=== PATIENT | female | born 1950 | race Caucasian/White ===

== ENCOUNTER → 2017-11-05 08:21 | Outpatient (CLI) | payer MEDICARE, OTHER, SELFPAY ==
[2017-11-05 10:08] LABS: Rheumatoid Factor < 8.6 IU/mL (<12.0)
[2017-11-05 10:23] LABS: Free T3, Triiodothyronine Free 2.73 pg/mL (2.77-5.27); Free T4, Direct Thyroxine 0.42 ng/dL (0.78-2.19)
[2017-11-06 23:38] LABS: ANA Screen, IFA Negative (Negative)
[2017-11-07 18:42] LABS: Triiodothyronine T3 Total 80 ng/dL (76-181)
== END ==
PROVIDERS: PCP Physician Assistant; Visit Provider Internal Medicine Endocrinology, Diabetes & Metabolism
DX: L50.9 Urticaria, unspecified (principal); E06.3 Autoimmune thyroiditis; E03.9 Hypothyroidism, unspecified; Z85.72 Personal history of non-Hodgkin lymphomas
CPT/HCPCS: 36415; 82784; 84155; 84439; 84443; 84480; 84481; 86038; 86334; 86430

== ENCOUNTER → 2017-11-14 17:07 | Outpatient (CLI) | payer MEDICARE, OTHER, SELFPAY ==
[2017-11-14 18:11] LABS: Free T3, Triiodothyronine Free 3.46 pg/mL (2.77-5.27)
[2017-11-16 14:17] LABS: Thyroid Peroxidase Antibodies > 900 IU/mL (< 9)
[2017-11-16 16:27] LABS: Triiodothyronine T3 Total 84 ng/dL (76-181)
[2017-11-19 14:26] LABS: Triiodothyronine T3 Reverse 14 ng/dL (8-25)
== END ==
PROVIDERS: PCP Physician Assistant; Visit Provider Physician Assistant
DX: E03.9 Hypothyroidism, unspecified (principal)
CPT/HCPCS: 36415; 84480; 84481; 84482; 86376

== ENCOUNTER → 2017-11-27 11:28 | Outpatient (CLI) | payer MEDICARE, OTHER, SELFPAY ==
[2017-11-27 13:12] LABS: Free T3, Triiodothyronine Free 4.74 pg/mL (2.77-5.27)
[2017-11-27 13:13] LABS: T4 Total Thyroxine 9.01 ug/dL (5.5-11.0)
[2017-11-27 13:25] LABS: Thyroid Stimulating Hormone 0.34 uIU/mL (0.47-4.68)
[2017-11-28 15:31] LABS: Triiodothyronine T3 Total 129 ng/dL (76-181)
[2017-12-04 13:45] LABS: Triiodothyronine T3 Reverse 14
== END ==
PROVIDERS: PCP Physician Assistant; Visit Provider Physician Assistant
DX: E06.3 Autoimmune thyroiditis (principal); E03.9 Hypothyroidism, unspecified
CPT/HCPCS: 36415; 84436; 84443; 84480; 84481; 84482

== ENCOUNTER → 2017-12-20 13:20 | Outpatient (CLI) | payer MEDICARE, OTHER, SELFPAY ==
[2017-12-20 14:52] LABS: Free T3, Triiodothyronine Free 5.38 pg/mL (2.77-5.27); Free T4, Direct Thyroxine 1.37 ng/dL (0.78-2.19)
[2017-12-20 15:06] LABS: Thyroid Stimulating Hormone < 0.02 uIU/mL (0.47-4.68)
== END ==
PROVIDERS: PCP Physician Assistant; Visit Provider Internal Medicine Endocrinology, Diabetes & Metabolism
DX: E06.3 Autoimmune thyroiditis (principal)
CPT/HCPCS: 36415; 84439; 84443; 84481

== ENCOUNTER → 2017-12-27 08:42 | Outpatient (CLI) | payer MEDICARE, OTHER, SELFPAY ==
--- NOTE | 2017-12-27 08:43 | DI.US.S_ITS ---
PROCEDURE: US THYROID INDICATIONS: Hypothyroidism TECHNIQUE: Real-time scanning was performed of the thyroid gland, with image documentation. COMPARISON: [facility], CT, SOFT TISSUE NECK W CONTRAST, 03/22/2015, 10:20. [facility], CT, NECK/CHEST/ABD/PEL W CONTRAST, 08/03/2016, 8:07. FINDINGS: Right: Thyroid lobe measures 1.3 x 1.6 x 4.0 cm, and is heterogeneous in echotexture. Left: Thyroid lobe measures 1.1 x 1.2 x 3.6 cm, and is heterogeneous in echotexture. Isthmus: 2 mm thick. IMPRESSION: 1. No thyromegaly or measurable nodules. Thyroid echotexture is heterogeneous throughout with scattered microcystic changes. T1-RADS 2 ACR TI-RADS definitions and recommendations: TI-RADS 1 (benign): 0 points. FNA not needed. TI-RADS 2 (not suspicious): 2 points. FNA not needed. TI-RADS 3 (mildly suspicious): 3 points. * FNA if 2.5 cm or larger, follow up if 1.5 cm or larger (at 1, 3, and 5 years). TI-RADS 4 (moderately suspicious): 4-6 points. * FNA if 1.5 cm or larger, follow up if 1 cm or larger (at 1, 2, 3, and 5 years). TI-RADS 5 (highly suspicious): 7 points or more. * FNA if 1 cm or larger, follow up if 0.5 cm or larger (every year for 5 years). Dictated by: Kenan Quintero M.D. on 12/27/2017 at 10:29 Approved by: Kenan Quintero M.D. on 12/27/2017 at 10:32
== END ==
PROVIDERS: PCP Physician Assistant; Visit Provider Physician Assistant
DX: E03.9 Hypothyroidism, unspecified (principal); E04.9 Nontoxic goiter, unspecified; R79.89 Other specified abnormal findings of blood chemistry
CPT/HCPCS: 76536

== ENCOUNTER → 2018-01-21 10:40 | Outpatient (CLI) | payer MEDICARE, OTHER, SELFPAY ==
[2018-01-21 12:56] LABS: Free T3, Triiodothyronine Free 3.53 pg/mL (2.77-5.27); Free T4, Direct Thyroxine 1.38 ng/dL (0.78-2.19)
[2018-01-21 13:09] LABS: Thyroid Stimulating Hormone 0.44 uIU/mL (0.47-4.68)
[2018-01-23 16:12] LABS: Thyroid Peroxidase Antibodies > 900 IU/mL (< 9)
== END ==
PROVIDERS: PCP Physician Assistant; Visit Provider Physician Assistant
DX: E03.9 Hypothyroidism, unspecified (principal); R79.89 Other specified abnormal findings of blood chemistry; E06.3 Autoimmune thyroiditis
CPT/HCPCS: 36415; 84439; 84443; 84481; 86376

== ENCOUNTER → 2018-02-24 13:06 | Outpatient (CLI) | payer MEDICARE, OTHER, SELFPAY ==
--- NOTE | 2018-02-24 13:11 | DI.RAD.S_ITS ---
This blank DEXA report has been sent in error by the PACS system. The correct and complete report will be forthcoming in 1-2 days. Thank you for your patience and understanding. Dictated by: Roopa Jaimes MD, PhD on 02/24/2018 at 14:30 Approved by: Roopa Jaimes MD, PhD on 02/24/2018 at 14:31
--- NOTE | 2018-02-24 13:13 | DI.MG.S_ITS ---
BILATERAL DIGITAL SCREENING MAMMOGRAM 3D/2D WITH CAD: 02/24/2018 CLINICAL: Routine screening. Comparison is made to exams dated: 02/19/2017 mammogram, 12/19/2015 mammogram - [facility], and 12/16/2014 mammogram - [facility]. The tissue of both breasts is heterogeneously dense. This may lower the sensitivity of mammography. Current study was also evaluated with a Computer Aided Detection (CAD) system. There is possible architectural distortion in the right breast upper aspect middle depth, likely along the 12 o'clock position. Finding is best noted on tomographic CC slice 45 and MLO slice 47. No other significant masses, calcifications, or other findings are seen in either breast. IMPRESSION: INCOMPLETE: NEEDS ADDITIONAL IMAGING EVALUATION The possible architectural distortion in the right breast is indeterminate. Additional views with possible ultrasound are recommended. This exam was interpreted at Station ID: [id number]. NOTE: For mammograms, a report in lay terms will be sent to the patient. Approximately 15% of breast malignancies will not be visualized mammographically. In the management of a palpable breast mass, a negative mammogram must not discourage biopsy of a clinically suspicious lesion. Electronically Signed By: Manuel Friedman M.D. ecl/:02/27/2018 07:12:14 letter sent: Additional Imaging Needed ACR BI-RADS Category 0: Incomplete 3340F
== END ==
PROVIDERS: PCP Physician Assistant; Visit Provider Physician Assistant
DX: Z12.31 Encounter for screening mammogram for malignant neoplasm of breast (principal); M85.851 Other specified disorders of bone density and structure, right thigh; Z78.0 Asymptomatic menopausal state; E07.9 Disorder of thyroid, unspecified; Z82.62 Family history of osteoporosis
CPT/HCPCS: 77063; 77067; 77080

== ENCOUNTER → 2018-04-08 11:05 | Outpatient (CLI) | payer MEDICARE, SELFPAY | PROVIDERS: PCP Physician Assistant; Visit Provider Physician Assistant | DX: R30.0 Dysuria (principal) | CPT/HCPCS: 87077; 87086; 87186 ==

== ENCOUNTER → 2018-04-15 15:14 | Outpatient (CLI) | payer MEDICARE, SELFPAY ==
[2018-04-15 15:46] LABS: Influenza A and B by PCR Rapid Negative (Negative)
== END ==
PROVIDERS: PCP Physician Assistant; Visit Provider Physician Assistant
DX: R68.89 Other general symptoms and signs (principal)
CPT/HCPCS: 87400

== ENCOUNTER → 2018-05-07 14:46 | Outpatient (CLI) | payer MEDICARE, SELFPAY ==
[2018-05-07 15:20] LABS: Add Manual Diff / Slide Review NO; Basophils Percent Auto 1.3 % (0-2); Eosinophils Percent Auto 1.7 % (2-4); Hematocrit 34.9 % (36-46); Lymphocytes Percent Auto 19.8 % (25-40); Mean Corpuscular HGB Conc 34.3 % (30-36); Mean Corpuscular Hemoglobin 30.2 PG (26-34); Mean Corpuscular Volume 87.9 fL (80-100); Monocytes Percent Auto 7.8 % (3-14); Neutrophils Absolute Auto 4100 /uL (3000-5900); Neutrophils Percent Auto 69.4 % (50-75); Platelet Count 179 X10^3/uL (150-400); Red Blood Cell Count 3.97 X10^6/uL (4.0-5.2); White Blood Cell Count 5.9 X10^3/uL (4.5-11.0)
[2018-05-07 16:40] LABS: HEMOLYSIS < 15 (0-50); Iron 84 ug/dL (37-170)
[2018-05-07 16:45] LABS: Alanine Aminotransferase 36 IU/L (9-52); Albumin 3.9 g/dL (3.5-5.0); Albumin Globulin Ratio 1.6 (1.0-2.8); Alkaline Phosphatase 70 U/L (38-126); Aspartate Aminotransferase 23 IU/L (14-36); BUN Creatinine Ratio 21.1 (6-22); Bilirubin Total 0.8 mg/dL (0.2-1.3); Blood Urea Nitrogen 19 mg/dL (7-17); Calcium 9.4 mg/dL (8.4-10.2); Carbon Dioxide 28 mmol/L (22-32); Chloride 105 mmol/L (98-107); Estimated Glomerular Filt Rate > 60.0 mL/min (>60); Globulin 2.4 g/dL (1.7-4.1); Glucose 98 mg/dL (80-110); HEMOLYSIS < 15 (0-50); Potassium 3.9 mmol/L (3.4-5.1); Sodium 143 mmol/L (137-145); Total Protein 6.3 g/dL (6.3-8.2)
[2018-05-07 16:51] LABS: Percent Iron Saturation 31 % (15-50); Total Iron Binding Capacity 268 ug/dL (265-497); Transferrin 227 mg/dL (206-381)
[2018-05-07 17:12] LABS: Thyroid Stimulating Hormone < 0.02 uIU/mL (0.47-4.68)
[2018-05-09 14:57] LABS: Thyroid Peroxidase Antibodies > 900 IU/mL (< 9)
== END ==
PROVIDERS: PCP Physician Assistant; Visit Provider Physician Assistant
DX: E03.9 Hypothyroidism, unspecified (principal); R53.83 Other fatigue
CPT/HCPCS: 36415; 80053; 82728; 83540; 83550; 84443; 85025; 86376

== ENCOUNTER → 2018-07-02 13:26 | Outpatient (CLI) | payer MEDICARE, SELFPAY ==
[2018-07-02 14:48] LABS: Thyroid Stimulating Hormone < 0.02 uIU/mL (0.47-4.68)
== END ==
PROVIDERS: PCP Physician Assistant; Visit Provider Physician Assistant
DX: E03.8 Other specified hypothyroidism (principal); E06.3 Autoimmune thyroiditis
CPT/HCPCS: 36415; 84443

== ENCOUNTER → 2018-09-09 08:56 | Outpatient (CLI) | payer MEDICARE, OTHER, SELFPAY ==
[2018-09-09 10:55] LABS: Free T3, Triiodothyronine Free 2.75 pg/mL (2.77-5.27); Free T4, Direct Thyroxine 1.06 ng/dL (0.78-2.19)
[2018-09-09 11:09] LABS: Thyroid Stimulating Hormone 3.34 uIU/mL (0.47-4.68)
== END ==
PROVIDERS: PCP Physician Assistant; Visit Provider Physician Assistant
DX: E03.8 Other specified hypothyroidism (principal); E06.3 Autoimmune thyroiditis; R79.89 Other specified abnormal findings of blood chemistry
CPT/HCPCS: 36415; 84439; 84443; 84481

== ENCOUNTER → 2018-10-16 14:18 | Outpatient (CLI) | payer MEDICARE, OTHER, SELFPAY ==
[2018-10-16 15:32] LABS: Free T3, Triiodothyronine Free 3.49 pg/mL (2.77-5.27); Free T4, Direct Thyroxine 1.46 ng/dL (0.78-2.19)
[2018-10-16 15:46] LABS: Thyroid Stimulating Hormone 0.57 uIU/mL (0.47-4.68)
== END ==
PROVIDERS: PCP Physician Assistant; Visit Provider Physician Assistant
DX: E03.8 Other specified hypothyroidism (principal); E06.3 Autoimmune thyroiditis
CPT/HCPCS: 36415; 84439; 84443; 84481

== ENCOUNTER → 2018-12-22 11:57 | Outpatient (CLI) | payer MEDICARE, OTHER, SELFPAY ==
[2018-12-22 13:29] LABS: Cholesterol 280 mg/dL (140-199); HDL Cholesterol 66 mg/dL (40-60); LDL Cholesterol Calculated 184 mg/dL (<100); Triglycerides 152 mg/dL (35-150)
[2018-12-22 13:45] LABS: Free T3, Triiodothyronine Free 3.32 pg/mL (2.77-5.27); Free T4, Direct Thyroxine 1.09 ng/dL (0.78-2.19)
== END ==
PROVIDERS: PCP Physician Assistant; Visit Provider Physician Assistant
DX: E03.8 Other specified hypothyroidism (principal); E06.3 Autoimmune thyroiditis; E78.5 Hyperlipidemia, unspecified; I10 Essential (primary) hypertension
CPT/HCPCS: 36415; 80061; 84439; 84443; 84481

== ENCOUNTER → 2019-02-13 11:31 | Outpatient (CLI) | payer MEDICARE, OTHER, SELFPAY ==
[2019-02-13 12:33] LABS: Cholesterol 187 mg/dL (140-199); HDL Cholesterol 61 mg/dL (40-60); LDL Cholesterol Calculated 101 mg/dL (<100); Triglycerides 124 mg/dL (35-150)
== END ==
PROVIDERS: PCP Physician Assistant; Visit Provider Physician Assistant
DX: E78.2 Mixed hyperlipidemia (principal)
CPT/HCPCS: 36415; 80061

== ENCOUNTER 2019-04-04 17:22 | Emergency (ER) | payer MEDICARE, OTHER, SELFPAY ==
--- NOTE | 2019-04-04 17:29 | DI.RAD.S_ITS ---
PROCEDURE: XR FINGER LT MIN 2V INDICATIONS: injury while gardening TECHNIQUE: AP hand, 2 views of the fourth finger(s) acquired. COMPARISON: [facility] [place], CR, WRIST COMP MIN 3VW (LT), 10/26/2013, 10:57. [facility], CR, HAND AND WRIST 3V LEFT, 06/25/2015, 14:26. FINDINGS: Bones: There is a mildly displaced fracture at the base of the fourth distal phalanx extending into the joint space. Post surgical changes reflecting previous radial ORIF are noted. Old ulnar styloid fracture is noted. Soft tissues: No suspicious soft tissue calcifications. IMPRESSION: Mildly displaced intra-articular fourth distal phalanx fracture. Dictated by: Valarie Mayer M.D. on 04/04/2019 at 17:56 Approved by: Valarie Mayer M.D. on 04/04/2019 at 17:59
--- NOTE | 2019-04-04 17:30 | PC.NURSE ---
thinks she sprained Left middle finger while gardening. mild swelling and pain. 2+ radial pulse. XR ordered. cold pack from home applied
[2019-04-04 17:31] VITALS: BP 154/81; PULSE 69; RESP 16; TEMP 36.8; O2SAT 99; BMI 32.1
--- NOTE | 2019-04-04 17:41 | ED.UPPEXIN ---
HPI - Extremity Injury (Upper) <MANE Yee - Last Filed: 04/04/19 19:16> General Chief Complaint: Extremity Injury, Upper Stated Complaint: left hand ring finger injury Time Seen by Provider: 04/04/19 17:24 Source: patient Mode of arrival: Family Vehicle Limitations: no limitations History of Present Illness HPI narrative: 68-year-old female presents to the emergency department complaining of left 4th finger pain after falling out of her chair. She states she went to lean over in her chair was on a sloping driveway and she fell to the left. She denies elbow pain, wrist pain, or hitting her head. She denies taking any blood thinners. She denies back pain, neck pain, knee pain, hip pain, other trauma, nausea, vomiting, diarrhea, LOC, or other concerns. MD complaint: injury to: left Related Data Home Medications Medication Instructions Recorded Confirmed Scanned list of supplements PO 12/26/17 02/02/19 turmeric root extract 500 mg 500 mg PO DAILY 05/07/18 02/02/19 capsule guanfacine 1 mg tablet 1 mg PO .every other day tab 01/26/19 02/02/19 Previous Rx's Medication Instructions Recorded pneumoc 13-mouna conj-dip cr(PF) 0.5 0.5 ml IM ONCE #0.5 ml 09/16/18 mL IM syringe esomeprazole magnesium 20 mg 20 mg PO DAILY #90 tab 01/08/19 tablet,delayed release buspirone 5 mg tablet See Rx Instructions PO BEDTIME #60 01/26/19 tab levothyroxine 88 mcg tablet 88 mcg PO DAILY #90 tab 02/02/19 atorvastatin 20 mg tablet 20 mg PO BEDTIME #90 tab 02/16/19 telmisartan 40 mg-amlodipine 5 mg 1 tab PO DAILY #90 tab 02/16/19 tablet lorazepam 1 mg tablet See Rx Instructions PO BEDTIME PRN 03/30/19 #10 tab Allergies Allergy/AdvReac Type Severity Reaction Status Date / Time adhesive Allergy Mild Redness Verified 04/04/19 17:37 and itching tape/tegaderm Allergy Intermediate rash Uncoded 04/04/19 17:37 Review of Systems <MANE Yee - Last Filed: 04/04/19 19:16> Review of Systems Narrative: REVIEW OF SYSTEMS: GENERAL: Denies fever or chills. HENT: No head trauma. EYES: No double vision or vision loss. CARDIOVASCULAR: No chest pain or syncope. RESPIRATORY: No shortness of breath or cough. GASTROINTESTINAL: No nausea, vomiting, diarrhea, or constipation. GENITOURINARY: No flank pain or dysuria. MUSCULOSKELETAL: Complains of left 4th finger pain, see HPI. INTEGUMENTARY: No rash, lesions, or pruritus. NEURO: No numbness, tingling. PSYCH: No behavior or mood changes. Patient History <MANE Yee - Last Filed: 04/04/19 19:16> Medical History Hypothyroidism (Chronic Unknown) Non Hodgkin's lymphoma (Inactive) Osteoarthritis (Chronic Unknown) Surgical History H/O lateral meniscus repair of right knee (Resolved) History of tonsillectomy and adenoidectomy (Resolved) Hx of tubal ligation (Resolved) Social History Smoking Status: Never smoker second hand exposure: No alcohol intake: never substance use type: does not use alcohol intake frequency: 0-2 drinks per day Substance Use Type: does not use Exam <MANE Yee - Last Filed: 04/04/19 19:16> Narrative Exam Narrative: PHYSICAL EXAMINATION: GENERAL: Well groomed, alert, and cooperative. Answers questions promptly and appropriately. Vital signs noted. HENT: Normocephalic, atraumatic. EYES: Symmetrical, sclera white, no periorbital swelling. CARDIOVASCULAR: S1 and S2 sounds normal. Regular rate and rhythm, no murmurs, clicks, or bruits. No pedal edema. RESPIRATORY: Normal respiratory rate, trachea midline, airway patent. No stridor, nasal flaring or accessory muscle use. Lungs are clear in all tobias. MUSCULOSKELETAL: Swelling and tenderness to left 4th finger between the dip and MIP joint, full range of motion MIP joint, decreased dip ROM due to pain. No tenderness with palpation to hand, wrist, elbow, shoulder, or cervical spine. Normal gait and coordination. Equal tone and mass bilaterally. EXTREMITIES: CMS intact. No pedal edema. SKIN: Warm, dry, soft, appropriate color for ethnicity. No lesions, rashes, or wounds. NEURO: Alert and Oriented X 3. No sensory deficits. PSYCH: Appropriate affect and mood. Initial Vital Signs Initial Vital Signs: Vital Signs Temperature 98.3 F 04/04/19 17:31 Pulse Rate 69 04/04/19 17:31 Respiratory Rate 16 04/04/19 17:31 Blood Pressure 154/81 H 04/04/19 17:31 Pulse Oximetry 99 04/04/19 17:31 <Antonio Stovall DO - Last Filed: 04/04/19 19:36> Initial Vital Signs Initial Vital Signs: Vital Signs Temperature 98.3 F 04/04/19 17:31 Pulse Rate 69 04/04/19 17:31 Respiratory Rate 16 04/04/19 17:31 Blood Pressure 154/81 H 04/04/19 17:31 Pulse Oximetry 99 04/04/19 17:31 Procedures <MANE Yee - Last Filed: 04/04/19 19:16> Orthopedic Splinting/Casting Injury #1: Side: left Upper Extremity Injury Location: finger Upper Extremity Immobilizer: aluminum form splint Post splinting neuro exam: intact Post splinting vascular exam: intact Placed by: Nursing Course <MANE Yee - Last Filed: 04/04/19 19:16> Orders Ordered: ED Orders 04/04/19 17:29 XR finger LT min 2V Stat Consultations Consultation #1: Patient staffed with Dr. Stovall. Vital Signs Vital signs: Vital Signs - 8 hr 04/04/19 17:31 Temperature 98.3 F Pulse Rate 69 Respiratory Rate 16 Blood Pressure 154/81 H Pulse Oximetry 99 <Antonio Stovall DO - Last Filed: 04/04/19 19:36> Orders Ordered: ED Orders 04/04/19 17:29 XR finger LT min 2V Stat Vital Signs Vital signs: Vital Signs - 8 hr 04/04/19 17:31 Temperature 98.3 F Pulse Rate 69 Respiratory Rate 16 Blood Pressure 154/81 H Pulse Oximetry 99 MDM - Extremity Injury (Upper) <MANE Yee - Last Filed: 04/04/19 19:16> Medical Records Attestation: I reviewed the patient's medical records. Lab Data Attestation: I reviewed the patient's lab results. Imaging Data Finger Xray: Radiologist's impression: [address] [address] XRay Report Signed Patient: Keisha Mclean HMR#: [id number] : 9Acct:[id number] Age/Sex: 68 / FDate of Service: 04/04/19 Loc: ED Accession Number: [id number] Procedure: XR finger LT min 2V Ordering Provider: Chuyita Kaplan PROCEDURE: XR FINGER LT MIN 2V INDICATIONS: injury while gardening TECHNIQUE: AP hand, 2 views of the fourth finger(s) acquired. COMPARISON: [facility] [place], CR, WRIST COMP MIN 3VW (LT), 10/26/2013, 10:57. [facility], CR, HAND AND WRIST 3V LEFT, 06/25/2015, 14:26. FINDINGS: Bones: There is a mildly displaced fracture at the base of the fourth distal phalanx extending into the joint space. Post surgical changes reflecting previous radial ORIF are noted. Old ulnar styloid fracture is noted. Soft tissues: No suspicious soft tissue calcifications. IMPRESSION: Mildly displaced intra-articular fourth distal phalanx fracture. Dictated by: Valarie Mayer M.D. on 04/04/2019 at 17:56 Approved by: Valarie Mayer M.D. on 04/04/2019 at 17:59 MDM Narrative Medical decision making narrative: History, examination, and x-ray consistent with inner articular distal phalangeal fracture. Patient was splinted. Reduction not indicated as due to fracture, break will not remain reduced. Patient was referred to Orthopedic for further follow-up. Less suspicion of any other injuries due to lack of pain or reports of trauma. Strict return precautions given and follow-up instructions discussed. Discharge Plan Departure Patient Disposition: Home Clinical Impression: Distal phalanx or phalanges, closed fracture Qualifiers: Encounter type: initial encounter Finger: ring finger Fracture alignment: displaced Laterality: left Qualified Code(s): S62.635A - Displaced fracture of distal phalanx of left ring finger, initial encounter for closed fracture Discharge Date/Time: 04/04/19 18:27 Instructions: DI for Finger Fracture Activity Restrictions/Additional Instructions: Thank you for entrusting me with your care today. As discussed, there is a fracture to her left finger. We have placed your finger in a splint, please leave this on as much as possible. Please follow up with an orthopedic in the next week for re-evaluation and continued treatment. Return emergency department if you develop worsening symptoms such as dizziness, syncope, chest pain, shortness of breath, or other concerns. Prescriptions: No Action turmeric root extract 500 mg capsule 500 mg PO DAILY RF: 0 Prevnar 13 (PF) 0.5 mL syringe 0.5 ml IM ONCE Qty: 0.5 RF: 0 Scanned list of supplements PO RF: 0 esomeprazole magnesium 20 mg tablet,delayed release (DR/EC) 20 mg PO DAILY Qty: 90 RF: 1 atorvastatin 20 mg tablet 20 mg PO BEDTIME Qty: 90 RF: 3 telmisartan-amlodipine 40-5 mg tablet 1 tab PO DAILY Qty: 90 RF: 1 lorazepam 1 mg tablet See Rx Instructions PO BEDTIME PRN (Reason: anxiety) Qty: 10 RF: 0 guanfacine 1 mg tablet 1 mg PO .every other day RF: 0 buspirone 5 mg tablet See Rx Instructions PO BEDTIME Qty: 60 RF: 3 levothyroxine 88 mcg tablet 88 mcg PO DAILY Qty: 90 RF: 3 Referrals: Juli Umanzor PA-C [Primary Care Provider] - Geraldine Roach PA-C [[facility]] - (Mildly displaced intra-articular distal phalangeal fracture to left 4th finger.)
== END 2019-04-04 18:27 | disposition home or self-care (01) ==
PROVIDERS: Emergency Provider Nurse Practitioner; PCP Physician Assistant
DX: S62.635A Displaced fracture of distal phalanx of left ring finger, initial encounter for closed fracture (principal)
CPT/HCPCS: 29130; 73140; 99283

== ENCOUNTER → 2019-05-11 08:18 | Outpatient (CLI) | payer MEDICARE, OTHER, SELFPAY ==
--- NOTE | 2019-05-11 09:25 | PM.TREADMILL ---
Cardiac Stress Test Report Referral & Results Date Patient Seen: 05/11/19 Requesting provider: Zeyad Linton Indication: Hypertension Rest ECG: Unremarkable Procedure Note: Today following both written and verbal informed consent, the patient was exercised according to a standard [place] protocol. The patient exercised for a total of 9 minutes 13 seconds achieving a maximum heart rate of 140. Patient's maximum systolic blood pressure was 168. This was an estimated 10.1 MET's. There are no ST-T segment changes Normal heart rate and blood pressure response to exercise Function aerobic impairment well well off the scale however estimate her exercise capacity to be equal that of an active 36-year-old Impression: No evidence of ischemia Amazing exercise capacity Please note: Actual ECG tracings can be found in the PACS system.
== END ==
PROVIDERS: PCP Physician Assistant; Visit Provider Internal Medicine Cardiovascular Disease
DX: R07.89 Other chest pain (principal); I10 Essential (primary) hypertension
CPT/HCPCS: 93016; 93017; 93018

== ENCOUNTER → 2019-05-27 14:10 | Outpatient (CLI) | payer MEDICARE, OTHER, SELFPAY ==
--- NOTE | 2019-05-27 14:11 | DI.US.S_ITS ---
PROCEDURE: US ABDOMEN COMPLETE INDICATIONS: LARGE CYST ON LIVER FOUND DURING ECHOCARDIOGRAM TECHNIQUE: Real-time scanning was performed of the abdominal and retroperitoneal organs, with image documentation. COMPARISON: [facility], CT, NECK/CHEST/ABD/PEL W CONTRAST, 08/03/2016, 8:07. FINDINGS: Liver: Liver is normal in size. There is a 6.7 x 8.3 x 8.1 cm slightly complex cyst with internal septation in the central liver between the left and right hepatic lobe. Gallbladder: There are gallstones. A non-mobile stone is noted in the gallbladder neck. Gallbladder wall measures 3 mm. No pericholecystic fluid collection or sonographic Chambers sign. Biliary ducts: Intrahepatic bile ducts are non-dilated. Extrahepatic bile duct caliber measures 6 mm. Normal is 6-7 mm or less in diameter, or 10 mm or less post-cholecystectomy. Pancreas: Visualized portions of the pancreas are sonographically normal. Spleen: Spleen is normal in size and homogeneous in echotexture. Kidneys: Kidneys are normal in size and echotexture. Right kidney measures 10.8 cm long; left kidney measures 10.4 cm long. No hydronephrosis or nephrolithiasis. No solid masses. Aorta: Visualized aorta is normal in caliber at less than 3 cm. Iliacs: Proximal common iliac arteries are normal in caliber at less than 2.5 cm. IVC: Intrahepatic inferior vena cava is patent. Miscellaneous: No free abdominal fluid. IMPRESSION: 1. A large slightly complex cyst in liver. 2. Cholelithiasis. No definitive ultrasound findings to suggest acute cholecystitis. Dictated by: Yoel Vasquez M.D. on 05/28/2019 at 8:59 Approved by: Yoel Vasquez M.D. on 05/28/2019 at 9:03
== END ==
PROVIDERS: PCP Physician Assistant; Visit Provider Physician Assistant
DX: K76.89 Other specified diseases of liver (principal); K80.20 Calculus of gallbladder without cholecystitis without obstruction
CPT/HCPCS: 76700

== ENCOUNTER → 2019-06-16 08:52 | Outpatient (CLI) | payer MEDICARE, OTHER, SELFPAY ==
[2019-06-16 09:45] LABS: Alanine Aminotransferase 22 IU/L (<35); Albumin 4.4 g/dL (3.5-5.0); Albumin Globulin Ratio 1.6 (1.0-2.8); Alkaline Phosphatase 83 U/L (38-126); Aspartate Aminotransferase 23 IU/L (14-36); BUN Creatinine Ratio 18.8 (6-22); Blood Urea Nitrogen 15 mg/dL (7-17); Calcium 9.4 mg/dL (8.4-10.2); Carbon Dioxide 27 mmol/L (22-32); Chloride 104 mmol/L (98-107); Estimated Glomerular Filt Rate > 60.0 mL/min (>60); Globulin 2.8 g/dL (1.7-4.1); Glucose 125 mg/dL (80-110); HEMOLYSIS < 15 (0-50); Potassium 3.9 mmol/L (3.4-5.1); Sodium 141 mmol/L (137-145); Total Protein 7.2 g/dL (6.3-8.2)
--- NOTE | 2019-06-16 10:28 | DI.CT.S_ITS ---
PROCEDURE: CT ABDOMEN WO/W CON INDICATIONS: COMPLEX LIVER CYST ON US TECHNIQUE: 4 phase scanning was performed. Non-contrast 5 mm axial sections acquired from the diaphragm to the iliac crests. Following the administration of intravenous contrast, 5 mm thick arterial-phase, portal venous-phase, and 5-minute delayed phase images were acquired through the liver. 5 mm thick coronal and sagittal reformats were performed. For radiation dose reduction, the following was used: automated exposure control, adjustment of mA and/or kV according to patient size. COMPARISON: Outside Facility, [place], CT ABDOMEN/PELVIS W/WO CONTRAST, 10/16/2014, 9:02. [facility], US, US ABDOMEN COMPLETE, 05/27/2019, 14:23. [facility], CT, NECK/CHEST/ABD/PEL W CONTRAST, 08/03/2016, 8:07. FINDINGS: Image quality: Excellent. Lung bases: Lung bases are clear. Heart size is normal. Liver: Within the central liver, there is a simple appearing water density cyst seen that measures up to 7.7 cm. In 2017, this cyst measured up to 6.4 cm transversely. No additional focal liver lesions are seen. The liver demonstrates normal size. Other solid organs: Gallbladder demonstrates gallstones within its lumen, as on series 2 image 26. Biliary system is non dilated. Pancreas is normal in morphology. There is a stable 8mm cystic focus again seen within the uncinate process pancreas, which is stable compared to priors. Spleen is normal in size and enhancement. Incidental note is made of an accessory spleen along the anterior aspect of the primary spleen. No adrenal nodules. Both kidneys demonstrate normal size and enhancement, without hydronephrosis or nephrolithiasis. Nodes and vessels: No retroperitoneal or mesenteric adenopathy by size criteria. Aorta and inferior vena cava are normal in size. Bowel and peritoneum: Unenhanced bowel loops are normal in caliber. No free fluid or air. Bones: No suspicious bony lesions. No vertebral body compression fractures. Age-appropriate bony degenerative changes are seen. Miscellaneous: No ventral hernias. IMPRESSION: Simple appearing liver cyst, without suspicious features. This cyst has grown slightly since 2017. Incidental note is made of: Gallstones Accessory spleen Stable 8mm cystic focus within the uncinate process of the pancreas. Dictated by: Delfin Rubio M.D. on 06/16/2019 at 9:57 Approved by: Delfin Rubio M.D. on 06/16/2019 at 10:25
== END ==
PROVIDERS: PCP Physician Assistant; Visit Provider Nurse Practitioner Family
DX: Z01.812 Encounter for preprocedural laboratory examination (principal); K76.89 Other specified diseases of liver; K80.20 Calculus of gallbladder without cholecystitis without obstruction; K86.2 Cyst of pancreas; Q89.09 Congenital malformations of spleen
CPT/HCPCS: 36415; 74170; 80053; 86682; Q9967

== ENCOUNTER 2019-06-20 09:37 | Emergency (ER) | payer MEDICARE, OTHER, SELFPAY ==
--- NOTE | 2019-06-20 09:38 | ED.WOUNDLAC ---
HPI - Wound/Laceration General Chief Complaint: Skin/Abscess/Foreign Body Stated Complaint: right breast incision bleeding uncontrolably Time Seen by Provider: 06/20/19 09:38 Source: patient and family Mode of arrival: Ambulatory Limitations: no limitations History of Present Illness HPI narrative: 68-year-old female nonsmoker with noncontributory medical history presents with her daughter and a chief complaint of bleeding from an incision on her right breast. She had elective bilateral breast surgery to in [place] 1 month ago and had been doing quite well. Over the past few days she put some anti scarring bandages on the incisions of her right breast and when taking 1 off this morning she had a fairly large amount of dark blood come from a small area in the incision. She denies any pain or fever or chills. The bleeding stops when she lays flat and begins again when she stands. Is very dark in color and at no point is it red Onset (ago): hour(s) Location: chest Place: home Patient tetanus UTD: Yes Associated symptoms: none Related Data Home Medications Medication Instructions Recorded Confirmed Scanned list of supplements PO 12/26/17 02/02/19 turmeric root extract 500 mg 500 mg PO DAILY 05/07/18 02/02/19 capsule guanfacine 1 mg tablet 1 mg PO .every other day tab 01/26/19 02/02/19 Previous Rx's Medication Instructions Recorded pneumoc 13-mouna conj-dip cr(PF) 0.5 0.5 ml IM ONCE #0.5 ml 09/16/18 mL IM syringe esomeprazole magnesium 20 mg 20 mg PO DAILY #90 tab 01/08/19 tablet,delayed release buspirone 5 mg tablet See Rx Instructions PO BEDTIME #60 01/26/19 tab levothyroxine 88 mcg tablet 88 mcg PO DAILY #90 tab 02/02/19 atorvastatin 20 mg tablet 20 mg PO BEDTIME #90 tab 02/16/19 telmisartan 40 mg-amlodipine 5 mg 1 tab PO DAILY #90 tab 02/16/19 tablet lorazepam 1 mg tablet See Rx Instructions PO BEDTIME PRN 03/30/19 #10 tab cephalexin [Keflex] 500 mg PO QID 7 Days #28 cap 06/20/19 Allergies Allergy/AdvReac Type Severity Reaction Status Date / Time adhesive Allergy Mild Redness Verified 04/04/19 17:37 and itching tape/tegaderm Allergy Intermediate rash Uncoded 04/04/19 17:37 Review of Systems Constitutional Constitutional: Denies chills, Denies fatigue, Denies fever(s), Denies frequent falls, Denies lethargy and Denies weakness Eyes Eyes: Denies change in vision, Denies eye discharge, Denies irritation and Denies loss of vision ENT Ears, Nose, Mouth, and Throat: Denies change in voice, Denies dizziness, Denies neck pain, Denies sore throat and Denies throat swelling Cardiovascular Cardiovascular: Denies chest pain, Denies irregular heart rhythm, Denies lightheadedness, Denies palpitations, Denies dyspnea, Denies dyspnea on exertion and Denies orthopnea Respiratory Respiratory: Denies cough, Denies dyspnea, Denies dyspnea on exertion and Denies wheezing Gastrointestinal Gastrointestinal: Denies abdominal pain, Denies change in bowel habits, Denies diarrhea, Denies nausea and Denies vomiting Genitourinary Genitourinary: Denies hematuria, Denies flank pain, Denies urinary incontinence and Denies urinary urgency Musculoskeletal Musculoskeletal: Denies back pain, Denies muscle weakness, Denies neck pain, Denies numbness and Denies tingling Integumentary/Breasts Skin/Breast: Denies pruritus, Denies erythema, Denies rash and Reports wounds Neurologic Neurologic: Denies behavioral changes, Denies confusion, Denies dizziness, Denies frequent falls, Denies loss of vision, Denies numbness, Denies tingling and Denies weakness Psychiatric Psychiatric: Denies anxiety, Denies behavioral changes, Denies confusion, Denies depression, Denies homicidal ideation and Denies suicidal ideation Endocrine Endocrine: Denies fatigue, Denies flushing and Denies palpitations Hematologic/Lymphatic Hematologic/Lymphatic: Denies easy bruising Allergic/Immunologic Allergic/Immunologic: Denies urticaria, Denies throat swelling and Denies wheezing Patient History Medical History Hypothyroidism (Chronic Unknown) Non Hodgkin's lymphoma (Inactive) Osteoarthritis (Chronic Unknown) Surgical History H/O lateral meniscus repair of right knee (Resolved) History of tonsillectomy and adenoidectomy (Resolved) Hx of tubal ligation (Resolved) Social History Smoking Status: Never smoker second hand exposure: No alcohol intake: never substance use type: does not use Smoking Status: Never smoker alcohol intake frequency: 0-2 drinks per day Substance Use Type: does not use Exam Narrative Exam Narrative: GEN: AOx3 and in mild distress EYES: Pupils are equal, round, and reactive to light and accommodation. Extraoccular muscles are intact bilaterally. There is no subconjunctival hemorrhage or exudate. CHEST: Lungs are clear to auscultation bilaterally and free of wheezes, rales, or rhonchi. Heart rate is regular rhythm, there are no murmurs, clicks, rubs, or gallops. There is no chest wall tenderness. Right breast exposed with female nursing veterinarian epidemiologist at the bedside and patient's permission. There's a very small area of wound dehiscence oozing dark blood noted. When patient sits up or stands the bleeding increases,suggesting a gravity component. Nothing pulsatile. There is no erythema, warmth or induration on the breast. ABD: Abdomen is soft and nontender. There is no guarding or rebound. Bowel sounds are normal in all 4 quadrants. There is no mass or organomegaly. EXT: Full painless ROM of all extremities with no loss of sensation or strength. SKIN: Warm, pink, and dry. No erythema or rash of exposed areas Initial Vital Signs Initial Vital Signs: Vital Signs Temperature 97.1 F L 06/20/19 09:43 Pulse Rate 69 06/20/19 09:43 Respiratory Rate 18 06/20/19 09:43 Blood Pressure 182/83 H 06/20/19 09:43 Pulse Oximetry 99 06/20/19 09:43 Course Course Course Narrative: Call to on-call provider at plastic surgery office in [place]. After discussing the case we sure the opinion this is likely a hematoma which has been present for quite some time is draining. He requests that I do not close the dehiscence and allowed to drain. Furthermore, he recommends placing the patient on antibiotics and encouraged close follow-up Patient understands and is in agreement with the plan. Vital Signs Vital signs: Vital Signs - 8 hr 06/20/19 09:43 Temperature 97.1 F L Pulse Rate 69 Respiratory Rate 18 Blood Pressure 182/83 H Pulse Oximetry 99 Discharge Plan Departure Patient Disposition: Home Clinical Impression: Postoperative bleeding from incision Discharge Date/Time: 06/20/19 10:30 Instructions: DI for Post-Surgical Bleeding Activity Restrictions/Additional Instructions: 1. Post surgical bleeding - likely from old blood which is now draining. Change dressings when they become bloody 2. I've sent an antibiotic to [facility] at your request 3. Follow up with Dr. Jonas on Saturday morning, call for an appointment and let them know you were seen here. 4. Return for worsening or persistent symptoms Prescriptions: New cephalexin [Keflex] 500 mg capsule 500 mg PO QID 7 Days Qty: 28 RF: 0 No Action turmeric root extract 500 mg capsule 500 mg PO DAILY RF: 0 Prevnar 13 (PF) 0.5 mL syringe 0.5 ml IM ONCE Qty: 0.5 RF: 0 Scanned list of supplements PO RF: 0 esomeprazole magnesium 20 mg tablet,delayed release (DR/EC) 20 mg PO DAILY Qty: 90 RF: 1 atorvastatin 20 mg tablet 20 mg PO BEDTIME Qty: 90 RF: 3 telmisartan-amlodipine 40-5 mg tablet 1 tab PO DAILY Qty: 90 RF: 1 lorazepam 1 mg tablet See Rx Instructions PO BEDTIME PRN (Reason: anxiety) Qty: 10 RF: 0 guanfacine 1 mg tablet 1 mg PO .every other day RF: 0 buspirone 5 mg tablet See Rx Instructions PO BEDTIME Qty: 60 RF: 3 levothyroxine 88 mcg tablet 88 mcg PO DAILY Qty: 90 RF: 3 Referrals: Juli Umanzor PA-C [Primary Care Provider] -
[2019-06-20 09:43] VITALS: BP 182/83; PULSE 69; RESP 18; TEMP 36.2; O2SAT 99; BMI 32.4
--- NOTE | 2019-06-20 10:28 | PC.NURSE ---
dressing placed under r breast/ bleeding site. extra dressings given
== END 2019-06-20 10:30 | disposition home or self-care (01) ==
PROVIDERS: Emergency Provider Emergency Medicine; PCP Physician Assistant
DX: Z98.890 Other specified postprocedural states (principal); L76.22 Postprocedural hemorrhage of skin and subcutaneous tissue following other procedure
CPT/HCPCS: 99281; 99283

== ENCOUNTER → 2019-07-28 15:01 | Outpatient (CLI) | payer MEDICARE, OTHER, SELFPAY ==
[2019-07-28 16:58] LABS: Free T4, Direct Thyroxine 0.94 ng/dL (0.78-2.19)
[2019-07-28 17:11] LABS: Thyroid Stimulating Hormone 2.53 uIU/mL (0.47-4.68)
== END ==
PROVIDERS: PCP Family Medicine; Referring Provider Family Medicine; Visit Provider Family Medicine
DX: E03.8 Other specified hypothyroidism (principal); E06.3 Autoimmune thyroiditis; E08.8 Diabetes mellitus due to underlying condition with unspecified complications
CPT/HCPCS: 36415; 84439; 84443; 84481

== ENCOUNTER → 2019-08-25 10:10 | Outpatient (CLI) | payer MEDICARE, OTHER, SELFPAY ==
[2019-08-25 10:45] LABS: Add Manual Diff / Slide Review NO; Basophils Absolute Auto 0 /uL (0-100); Basophils Percent Auto 0.4 % (0-2); Eosinophils Absolute Auto 100 /uL (0-450); Hematocrit 40.7 % (36-46); Hemoglobin 13.7 g/dL (12.0-16.0); Lymphocytes Absolute Auto 900 /uL (1100-4500); Lymphocytes Percent Auto 19.8 % (25-40); Mean Corpuscular HGB Conc 33.7 % (30-36); Mean Corpuscular Hemoglobin 29.9 PG (26-34); Mean Corpuscular Volume 88.9 fL (80-100); Monocytes Absolute Auto 400 /uL (0-900); Neutrophils Absolute Auto 3200 /uL (1500-7000); Neutrophils Percent Auto 67.8 % (50-75); Platelet Count 193 X10^3/uL (150-400); Red Blood Cell Count 4.58 X10^6/uL (4.0-5.2); Red Cell Distribution Width 13.6 % (11.6-14.8); White Blood Cell Count 4.7 X10^3/uL (4.5-11.0)
[2019-08-25 11:21] LABS: Alanine Aminotransferase 26 IU/L (<35); Albumin 4.5 g/dL (3.5-5.0); Albumin Globulin Ratio 1.5 (1.0-2.8); Alkaline Phosphatase 84 U/L (38-126); Aspartate Aminotransferase 26 IU/L (14-36); BUN Creatinine Ratio 19.7 (6-22); Bilirubin Total 1.1 mg/dL (0.2-1.3); Blood Urea Nitrogen 15 mg/dL (7-17); Calcium 9.8 mg/dL (8.4-10.2); Carbon Dioxide 28 mmol/L (22-32); Chloride 104 mmol/L (98-107); Estimated Glomerular Filt Rate > 60.0 mL/min (>60); Globulin 3.1 g/dL (1.7-4.1); Glucose 118 mg/dL (80-110); HEMOLYSIS < 15 (0-50); Sodium 139 mmol/L (137-145); Total Protein 7.6 g/dL (6.3-8.2)
[2019-08-25 12:34] LABS: Hemoglobin A1C% w Est Avg Glu 5.7 % (4.0-6.0)
[2019-08-25 12:54] LABS: Free T4, Direct Thyroxine 1.63 ng/dL (0.78-2.19)
[2019-08-25 13:08] LABS: Thyroid Stimulating Hormone 0.65 uIU/mL (0.47-4.68)
--- NOTE | 2019-08-31 13:45 | ONC.MSW ---
Description: New Referral Navigation Activity: Reviewed new referral for acuity, medical status and immediate needs. Forwarded to scheduling for next available f/u.
== END ==
PROVIDERS: PCP Family Medicine; Referring Provider Family Medicine; Visit Provider Family Medicine
DX: E03.8 Other specified hypothyroidism (principal); E06.3 Autoimmune thyroiditis; Z85.79 Personal history of other malignant neoplasms of lymphoid, hematopoietic and related tissues; R73.09 Other abnormal glucose
CPT/HCPCS: 36415; 80053; 83036; 84439; 84443; 85025

== ENCOUNTER → 2019-09-02 15:09 | Oncology outpatient (ONC) | payer MEDICARE, OTHER, SELFPAY ==
--- NOTE | 2019-09-02 13:00 | ONC.CONS ---
History of Present Illness - Data of Consult Primary Care Provider: Loki Martinez, DO - Consult Narrative Narrative: Keisha Mclean is a 69 year old female referred for evaluation and management of marginal zone (non-Hodgkin's) lymphoma. Marginal zone lymphoma was originally diagnosed in December 2011, confirmed from biopsy of bulky right cervical lymphadenopathy and salivary gland swelling. She had had symptoms for about 1 year prior to diagnosis. Initial treatment included weekly Rituxan x4, but she relapsed about 8 months later, treated with 4 additional cycles of Rituxan. Additional recurrence marginal zone lymphoma with extensive right-sided cervical lymphadenopathy was detected on PET scan, performed at [facility], in October 2014. She had a confluent kenya mass affecting right sided levels II through IV. She was treated with bendamustine plus Rituxan for 6 cycles. Maintenance Rituxan was considered, but after 2nd opinion at [facility], she was advised that this was not indicated, so she has been on surveillance. She has had increased discomfort in her left upper quadrant, and generalized arthralgias. With her history of multiple recurrences of marginal zone lymphoma, she is quite concerned that current symptoms could indicate additional disease. She is also being monitored for a 4 x 6 cm simple cyst of the liver. She also notes thyroid disease (Selene's thyroiditis). Laboratory studies on 08/25/2019 showed a total white cell count of 4.7, 68% neutrophils, 20% lymphocytes, 9% monocytes, and 3% eosinophils, hemoglobin 13.7, hematocrit 40.7%, MCV 89, and platelets [id number]. BUN was 15 with creatinine 0.76. Serum glucose was 118. Liver function tests were within normal limits. CC: Eugene Claudio MD Home Medications and Allergies Home Medications Medication Instructions Recorded Confirmed Type Scanned list of supplements PO 12/26/17 08/12/19 History turmeric root extract 500 mg 500 mg PO DAILY 05/07/18 08/12/19 History capsule pneumoc 13-mouna conj-dip cr(PF) 0.5 0.5 ml IM ONCE #0.5 ml 09/16/18 08/12/19 Rx mL IM syringe esomeprazole magnesium 20 mg 20 mg PO DAILY #90 tab 01/08/19 08/12/19 Rx tablet,delayed release atorvastatin 20 mg tablet 20 mg PO BEDTIME #90 tab 02/16/19 08/12/19 Rx lorazepam 1 mg tablet See Rx Instructions PO BEDTIME PRN 03/30/19 08/12/19 Rx #10 tab levothyroxine 100 mcg tablet 100 mcg PO DAILY #90 tab 08/04/19 08/12/19 Rx doxycycline hyclate 100 mg capsule 100 mg PO DAILY #22 cap 08/12/19 08/12/19 Rx typhoid vaccin,live,attenuated 2 1 cap PO ONCE #4 cap 08/14/19 Rx billion unit capsule,delayed release telmisartan 40 mg-amlodipine 5 mg 1 tab PO DAILY #90 tab 08/31/19 Rx tablet Allergies Allergy/AdvReac Type Severity Reaction Status Date / Time levothyroxine sodium Allergy Intermediate rash Verified 08/12/19 09:19 [From Tirosint] adhesive Allergy Mild Redness Verified 08/12/19 09:19 and itching tape/tegaderm Allergy Intermediate rash Uncoded 04/04/19 17:37 Medical History - Medical, Surgical, Family History Medical History: Medical History (Last Reviewed 09/02/19 @ 15:09 by Eugene Claudio MD) Hypothyroidism Onset Date: Unknown Non Hodgkin's lymphoma Osteoarthritis Onset Date: Unknown Travel advice encounter Surgical History: Surgical History (Last Reviewed 09/02/19 @ 15:09 by Eugene Claudio MD) H/O lateral meniscus repair of right knee History of tonsillectomy and adenoidectomy Hx of tubal ligation - Social History Smoking Status: Never smoker Review of Systems - Patient Self-Reported Symptoms SR Constitution: Fatigue/Malaise SR Gastrointestinal issues: Abdominal pain SR Musculoskeletal issues: Joint pain or swelling, Bone pain Exam Narrative: HEENT: Pupils equally round reactive to light extraocular muscles intact sclerae anicteric conjunctiva pink mucous membranes moist no oral lesions Nodes no palpable adenopathy in the neck axilla or groin Chest: Clear throughout Cardiac exam regular rate and rhythm with normal S1 and S2 Breast: Status post breast reduction Abdomen: Soft nontender with normoactive bowel tones no splenomegaly or masses Extremities: Trace pedal edema 2+ distal pulses no calf tenderness Results - Imaging Additional studies: Procedures Removal of external immobilization device (10/23/13) Assessment and Plan (1) Marginal zone lymphoma Current visit: Yes Status: Acute The patient is an energetic 69-year-old woman. She was diagnosed with marginal zone lymphoma in December 2011, arising in the right neck. After 4 weekly cycles of Rituxan, she relapsed 8 months later, and received an additional 4 cycles of Rituxan. She relapsed again in October 2014, treated at [facility] in [facility] with bendamustine plus Rituxan for 6 cycles. She achieved complete remission. She has not been seen in an Oncology Clinic for at least 2-1/2 years. Current clinical symptoms her the (primarily left upper quadrant discomfort) could represent splenomegaly, lymphadenopathy, or possibly diverticular disease in the left upper quadrant. She does not note any significant B symptoms. Nonetheless, given her history of multiple recurrences of marginal zone lymphoma, recommend additional evaluation. Check LDH, sed rate, and BMP today. Schedule CT of the chest abdomen and pelvis to evaluate for lymphadenopathy. Clinical exam shows no evidence of lymphadenopathy in the neck. If she has evidence of recurrent lymphoma, we will discuss treatment options. If imaging shows no evidence of disease, then I recommend continued monitoring at least annually, or sooner should she develop worrisome signs or symptoms. Thank you very much for allowing us to participate in your patient's care.
[2019-09-02 14:09] VITALS: BP 137/80; PULSE 62; RESP 18; TEMP 36.8; O2SAT 97
--- NOTE | 2019-09-02 15:19 | DI.RAD.S_ITS ---
PROCEDURE: XR FINGER LT MIN 2V INDICATIONS: Mallet Deformity of Left ring finger TECHNIQUE: AP hand, 2 views of the fourth finger(s) acquired. COMPARISON: [facility], CR, XR FINGER(S) LEFT, 08/07/2019, 10:47. [facility], CR, XR FINGER LT MIN 2V, 04/04/2019, 17:37. FINDINGS: Bones: Dorsal avulsion fracture fragment at the DIP joint of the ring finger. No change in alignment. Diffuse interphalangeal joint degeneration with juxta articular lucencies, possibly cysts versus erosions. Soft tissues: No suspicious soft tissue calcifications. IMPRESSION: Fourth distal phalangeal base dorsal fracture unchanged from prior exam. Dictated by: Sebastián Connelly [facility] Interpreted: Shimon Aiken MD on 09/02/2019 at 16:03 Approved by: Shimon Aiken M.D. on 09/02/2019 at 16:55
[2019-09-02 15:54] LABS: BUN Creatinine Ratio 20.2 (6-22); Blood Urea Nitrogen 17 mg/dL (7-17); Calcium 9.7 mg/dL (8.4-10.2); Carbon Dioxide 30 mmol/L (22-32); Chloride 102 mmol/L (98-107); Estimated Glomerular Filt Rate > 60.0 mL/min (>60); Glucose 95 mg/dL (80-110); HEMOLYSIS < 15 (0-50); Lactate Dehydrogenase 509 U/L (313-618); Potassium 3.9 mmol/L (3.4-5.1); Sodium 140 mmol/L (137-145)
[2019-09-02 16:19] LABS: Erythrocyte Sedimentation Rate 28 MM/HR (0-20)
== END ==
PROVIDERS: PCP Family Medicine; Referring Provider Family Medicine; Visit Provider Internal Medicine Hematology & Oncology
DX: Z08 Encounter for follow-up examination after completed treatment for malignant neoplasm (principal); Z85.72 Personal history of non-Hodgkin lymphomas; M20.012 Mallet finger of left finger(s); S62.615A Displaced fracture of proximal phalanx of left ring finger, initial encounter for closed fracture; R10.12 Left upper quadrant pain; K76.89 Other specified diseases of liver; E06.3 Autoimmune thyroiditis
CPT/HCPCS: 36415; 73140; 80048; 83615; 85651; 99205; 99215

== ENCOUNTER → 2019-09-03 13:04 | Outpatient (CLI) | payer MEDICARE, OTHER, SELFPAY ==
--- NOTE | 2019-09-03 13:44 | DI.CT.S_ITS ---
PROCEDURE: CT CHEST ABD PEL W CON INDICATIONS: evaluate non hodgkins lymphoma TECHNIQUE: After the administration of oral and intravenous contrast, 5 mm thick sections acquired from the lung apices to the symphysis. 5 mm coronal and sagittal reformats were performed, with additional 7 mm coronal MIP reformats through the lungs. For radiation dose reduction, the following was used: automated exposure control, adjustment of mA and/or kV according to patient size. COMPARISON: Outside Facility, , CT ABDOMEN/PELVIS W/WO CONTRAST, 10/16/2014, 9:02. [facility], CT, NECK/CHEST/ABD/PEL W CONTRAST, 08/03/2016, 8:07. [facility], CT, CT ABDOMEN WO/W CON, 06/16/2019, 10:26. FINDINGS: Image quality: Excellent. CHEST: Lungs and pleura: No acute airspace opacities. No pleural effusions or pneumothorax. Central and peripheral airways appear patent and normal in caliber. Mediastinum: Heart size is normal. No pericardial effusion. No mediastinal or hilar adenopathy by size criteria. Thoracic aorta and central pulmonary arteries are normal in size. Esophagus is normal in caliber. Small hiatal hernia. Chest wall: No axillary or supraclavicular adenopathy by size criteria. Thyroid gland is normal. ABDOMEN: Solid organs: There is a 6.8 x 8.3 cm simple appearing hepatic cyst, unchanged from the last exam. Liver is normal in size and enhancement. Gallbladder contains gallstones. Biliary system is non dilated. There is a 7 mm hyperdense nodule in the uncinate process of pancreas, unchanged since 10/16/2014. Pancreas is also normal in morphology and enhancement. Spleen is normal in size and enhancement. No adrenal nodules. Kidneys demonstrate normal size and enhancement, without hydronephrosis. Peritoneum and bowel: Bowel loops demonstrate normal wall thickness and caliber. No free fluid or air. Nodes and vessels: No retroperitoneal or mesenteric adenopathy by size criteria. Aorta and inferior vena cava are normal in size. Miscellaneous: No ventral hernias. PELVIS: Genitourinary: Bladder wall thickness is normal. Miscellaneous: No inguinal hernias or adenopathy. Bones: No suspicious bony lesions. No vertebral body compression fractures. IMPRESSION: 1. No enlarged lymph nodes in the thorax, abdomen or pelvis. 2. A large simple appearing hepatic cyst. 3. Stable 7 mm low density nodule in uncinate process of pancreas since 10/16/2014. 4. Cholelithiasis. Dictated by: Yoel Vasquez M.D. on 09/03/2019 at 14:36 Approved by: Yoel Vasquez M.D. on 09/03/2019 at 14:50
== END ==
PROVIDERS: PCP Family Medicine; Referring Provider Internal Medicine Hematology & Oncology; Visit Provider Internal Medicine Hematology & Oncology
DX: K44.9 Diaphragmatic hernia without obstruction or gangrene (principal); K76.89 Other specified diseases of liver; K80.20 Calculus of gallbladder without cholecystitis without obstruction; K86.9 Disease of pancreas, unspecified; Z85.79 Personal history of other malignant neoplasms of lymphoid, hematopoietic and related tissues
CPT/HCPCS: 71260; 74177; Q9967

== ENCOUNTER → 2019-09-30 | Outpatient (CLI) | payer MEDICARE, OTHER, SELFPAY | PROVIDERS: PCP Family Medicine; Visit Provider Family Medicine ==

== ENCOUNTER → 2019-12-04 15:29 | Outpatient (CLI) | payer MEDICARE, OTHER, SELFPAY ==
[2019-12-04 16:54] LABS: Free T4, Direct Thyroxine 1.44 ng/dL (0.78-2.19)
[2019-12-04 17:08] LABS: Thyroid Stimulating Hormone 0.291 uIU/mL (0.47-4.68)
[2019-12-07 15:53] LABS: Vitamin D 25 Hydroxy (D3) 76.1 ng/mL (30.0-100.0)
== END ==
PROVIDERS: PCP Family Medicine; Referring Provider Orthopaedic Surgery; Visit Provider Orthopaedic Surgery
DX: M20.012 Mallet finger of left finger(s) (principal); E03.8 Other specified hypothyroidism; E06.3 Autoimmune thyroiditis; M85.80 Other specified disorders of bone density and structure, unspecified site
CPT/HCPCS: 36415; 82306; 84439; 84443

== ENCOUNTER → 2019-12-15 14:54 | Outpatient (CLI) | payer MEDICARE, OTHER, SELFPAY ==
--- NOTE | 2019-12-15 15:01 | DI.RAD.S_ITS ---
PROCEDURE: XR KNEE LT 3V INDICATIONS: Left knee pain TECHNIQUE: A 3 views of the knee were acquired. COMPARISON: [facility], , KNEE 3V LEFT, 06/18/2017, 10:27. FINDINGS: Bones: No fractures or dislocations. No suspicious bony lesions. Soft tissues: No joint effusion. No suspicious soft tissue calcifications. IMPRESSION: No source of knee pain found. No effusion or loose body identified. Dictated by: Israel Franks M.D. on 12/15/2019 at 16:44 Approved by: Israel Franks M.D. on 12/15/2019 at 16:44
== END ==
PROVIDERS: PCP Family Medicine; Referring Provider Family Medicine; Visit Provider Family Medicine
DX: M25.562 Pain in left knee (principal)
CPT/HCPCS: 73562

== ENCOUNTER → 2020-02-16 11:13 | Outpatient (CLI) | payer MEDICARE, OTHER, SELFPAY ==
--- NOTE | 2020-02-16 11:16 | DI.RAD.S_ITS ---
PROCEDURE: XR KNEE RT 3V INDICATIONS: R knee pain x 3-4 months. TECHNIQUE: 3 views of the knee were acquired. COMPARISON: [facility], CR, XR KNEE LT 3V, 12/15/2019, 15:01. FINDINGS: Bones: No fracture. Scattered degenerative subchondral sclerosis and spurring. Mild-moderate narrowing of the medial joint space. Soft tissues: No joint effusion. No suspicious soft tissue calcifications. IMPRESSION: Mild-moderate right knee joint degeneration Dictated by: Bobby Crocker M.D. on 02/16/2020 at 12:49 Approved by: Bobby Crocker M.D. on 02/16/2020 at 12:51
== END ==
PROVIDERS: PCP Family Medicine; Referring Provider Registered Nurse Diabetes Educator; Visit Provider Registered Nurse Diabetes Educator
DX: M25.561 Pain in right knee (principal); M17.11 Unilateral primary osteoarthritis, right knee
CPT/HCPCS: 73562

== ENCOUNTER → 2020-03-09 08:42 | Outpatient (CLI) | payer MEDICARE, OTHER, SELFPAY ==
--- NOTE | 2020-03-09 08:55 | DI.CT.S_ITS ---
PROCEDURE: CT SINUS SCREEN WO CON INDICATIONS: HEADACHE, CHRONIC PANISUNITIS TECHNIQUE: Noncontrast 3.0 mm axial images acquired from the frontal sinuses to the mid-sella, with coronal and sagittal reformats. For radiation dose reduction, the following was used: automated exposure control, adjustment of mA and/or kV according to patient size. COMPARISON: [facility], CT, SINUS WITH CONTRAST, 03/22/2015, 10:20. [facility], CT, HEAD WITHOUT CONTRAST, 10/12/2016, 10:06. FINDINGS: Image quality: Excellent. Maxillary Sinuses: No bony remodeling or destruction. Sinuses are clear. Ethmoid Air Cells: No bony remodeling or destruction. Sinuses are clear. Sphenoid Sinuses: No bony remodeling or destruction. Sinuses are clear. Frontal Sinuses: No bony remodeling or destruction. Sinuses are clear. Ostiomeatal Complexes: Ostiomeatal complexes are patent. No Dena cells. Miscellaneous: Visualized intra-orbital contents are normal. No significant miriam bullosa. There is moderate rightward nasal septal deviation seen. IMPRESSION: No significant active paranasal sinus disease is seen. Moderate rightward nasal septal deviation. Dictated by: Delfin Rubio M.D. on 03/09/2020 at 9:27 Approved by: Delfin Rubio M.D. on 03/09/2020 at 9:29
== END ==
PROVIDERS: PCP Family Medicine; Referring Provider Otolaryngology; Visit Provider Otolaryngology
DX: J32.4 Chronic pansinusitis (principal); R51 Headache; J34.2 Deviated nasal septum
CPT/HCPCS: 70486

== ENCOUNTER → 2020-03-16 09:58 | Outpatient (CLI) | payer MEDICARE, OTHER, SELFPAY ==
[2020-03-16 11:57] LABS: Free T3, Triiodothyronine Free 3.01 pg/mL (2.77-5.27); Free T4, Direct Thyroxine 1.36 ng/dL (0.78-2.19)
[2020-03-16 12:11] LABS: Thyroid Stimulating Hormone 1.02 uIU/mL (0.47-4.68)
[2020-03-17 07:09] LABS: Thyroid Peroxidase Antibodies 462 IU/mL (0-34)
[2020-03-17 18:14] LABS: Anti Thyroglobulin Antibody 729.6 IU/mL (0.0-0.9)
[2020-03-23 07:11] LABS: Triiodothyronine T3 Reverse 17.8 ng/dL (9.2-24.1)
== END ==
PROVIDERS: PCP Family Medicine; Referring Provider Family Medicine; Visit Provider Family Medicine
DX: E03.8 Other specified hypothyroidism (principal); E06.3 Autoimmune thyroiditis; I10 Essential (primary) hypertension
CPT/HCPCS: 36415; 84439; 84443; 84481; 84482; 86376; 86800

== ENCOUNTER → 2020-03-18 13:34 | Outpatient (CLI) | payer MEDICARE, OTHER, SELFPAY ==
[2020-03-20 13:25] LABS: COVID19 Sendout Not Detected
== END ==
PROVIDERS: PCP Family Medicine; Visit Provider Physician Assistant
DX: Z01.812 Encounter for preprocedural laboratory examination (principal)
CPT/HCPCS: 87635

== ENCOUNTER → 2020-03-30 17:28 | Outpatient (CLI) | payer MEDICARE, OTHER, SELFPAY ==
--- NOTE | 2020-03-30 | DI.MG.S_ITS ---
BILATERAL DIGITAL SCREENING MAMMOGRAM 3D/2D WITH CAD: 03/30/2020 CLINICAL: Routine screening. Comparison is made to exams dated: 02/24/2018 mammogram, 02/19/2017 mammogram, and 12/19/2015 mammogram - [facility]. The tissue of both breasts is heterogeneously dense. This may lower the sensitivity of mammography. Current study was also evaluated with a Computer Aided Detection (CAD) system. Both breasts have post-operative findings due to breast reduction. No significant masses, calcifications, or other findings are seen in either breast. IMPRESSION: BENIGN There is no mammographic evidence of malignancy. A 1 year screening mammogram is recommended. This exam was interpreted at Station ID: [id number]. NOTE: For mammograms, a report in lay terms will be sent to the patient. Approximately 15% of breast malignancies will not be visualized mammographically. In the management of a palpable breast mass, a negative mammogram must not discourage biopsy of a clinically suspicious lesion. Electronically Signed By: Willis moore/noelle:03/31/2020 08:59:48 letter sent: Normal Exam ACR BI-RADS Category 2: Benign Finding(s) [id number]
== END ==
PROVIDERS: PCP Family Medicine; Referring Provider Family Medicine; Visit Provider Family Medicine
DX: Z12.31 Encounter for screening mammogram for malignant neoplasm of breast (principal)
CPT/HCPCS: 77063; 77067

== ENCOUNTER → 2020-06-07 11:59 | Outpatient (CLI) | payer MEDICARE, OTHER, SELFPAY ==
[2020-06-07 12:57] LABS: RBC Urine None Seen (0-5/HPF); WBC Urine None Seen (0-5/HPF)
[2020-06-07 13:48] LABS: Add Manual Diff / Slide Review NO; Basophils Absolute Auto 0 /uL (0-100); Basophils Percent Auto 0.2 % (0-2); Eosinophils Absolute Auto 100 /uL (0-450); Eosinophils Percent Auto 2.2 % (2-4); Hematocrit 41.2 % (36-46); Hemoglobin 13.8 g/dL (12.0-16.0); Lymphocytes Absolute Auto 1200 /uL (1100-4500); Lymphocytes Percent Auto 21.7 % (25-40); Mean Corpuscular HGB Conc 33.5 % (30-36); Mean Corpuscular Volume 89.5 fL (80-100); Monocytes Absolute Auto 400 /uL (0-900); Monocytes Percent Auto 6.9 % (3-14); Neutrophils Absolute Auto 4000 /uL (1500-7000); Platelet Count 210 X10^3/uL (150-400); Red Blood Cell Count 4.61 X10^6/uL (4.0-5.2); Red Cell Distribution Width 13.4 % (11.6-14.8); White Blood Cell Count 5.8 X10^3/uL (4.5-11.0)
[2020-06-07 14:08] LABS: Alanine Aminotransferase 29 IU/L (<35); Albumin 4.4 g/dL (3.5-5.0); Albumin Globulin Ratio 1.6 (1.0-2.8); Alkaline Phosphatase 90 U/L (38-126); Aspartate Aminotransferase 26 IU/L (14-36); BUN Creatinine Ratio 20.8 (6-22); Bilirubin Total 0.9 mg/dL (0.2-1.3); Blood Urea Nitrogen 16 mg/dL (7-17); Calcium 9.8 mg/dL (8.4-10.2); Carbon Dioxide 33 mmol/L (22-32); Chloride 100 mmol/L (98-107); Estimated Glomerular Filt Rate > 60.0 mL/min (>60); Globulin 2.8 g/dL (1.7-4.1); Glucose 100 mg/dL (80-110); HEMOLYSIS < 15 (0-50); Potassium 4.2 mmol/L (3.4-5.1); Sodium 137 mmol/L (137-145); Total Protein 7.2 g/dL (6.3-8.2)
[2020-06-07 14:15] LABS: Appearance Urine UA CLEAR; Bilirubin Urine UA NEGATIVE (NEGATIVE); Color Urine UA YELLOW; Glucose Urine UA NEGATIVE (Negative); Ketones Urine UA NEGATIVE (NEGATIVE); Leukocyte Esterase Urine UA NEGATIVE (NEGATIVE); Nitrite Urine UA NEGATIVE (Negative); Occult Blood Urine UA NEGATIVE (Negative); Protein Urine UA NEGATIVE (Negative); Specific Gravity Urine UA 1.015 (1.000-1.035); Urobilinogen Urine UA 0.2 E.U./dL (0.2)
[2020-06-07 14:18] LABS: pH Urine UA 6.5 (4.5-8.0)
[2020-06-07 14:50] LABS: Bacteria Urine Occasional (0-1); Culture Indicated Urine Cult Not Indicated; Squamous Epithelial Cell Urine 1-5 /HPF (0-5/HPF)
== END ==
PROVIDERS: PCP Family Medicine; Referring Provider Family Medicine; Visit Provider Family Medicine
DX: R10.2 Pelvic and perineal pain (principal)
CPT/HCPCS: 36415; 80053; 81001; 85025

== ENCOUNTER → 2020-06-09 07:32 | Outpatient (CLI) | payer MEDICARE, OTHER, SELFPAY ==
--- NOTE | 2020-06-09 07:34 | DI.CT.S_ITS ---
PROCEDURE: CT ABDOMEN PELVIS W CON INDICATIONS: pelvic pain TECHNIQUE: After the administration of oral and intravenous contrast, 5 mm thick sections acquired from the diaphragms to the symphysis. 5 mm thick coronal and sagittal reformats were performed. For radiation dose reduction, the following was used: automated exposure control, adjustment of mA and/or kV according to patient size. COMPARISON: Outside Facility, RG, CT ABDOMEN/PELVIS W/WO CONTRAST, 10/16/2014, 9:02. [facility], CT, CT CHEST ABD PEL W CON, 09/03/2019, 14:00. FINDINGS: Image quality: Excellent. ABDOMEN: Lung bases: There is minimal dependent atelectasis. Heart size is normal. Solid organs: There is a large thin-walled hepatic cyst measuring up to 8.8 x 7.1 cm which appears progressively increased in size compared to the prior studies. A few calcified gallstones are demonstrated in the gallbladder without associated wall thickening or pericholecystic fluid. Biliary system is non-dilated. No calcified common duct stones. There is a focus of interdigitating fat within the uncinate process of the pancreas medially. No discrete pancreatic mass identified. No peripancreatic fat stranding or fluid collections. No pancreatic duct dilatation. The spleen is normal in size. No adrenal nodules. Kidneys demonstrate no hydronephrosis. Peritoneum and bowel: Stomach and small bowel loops are normal in caliber and wall thickness. The appendix is normal in appearance. There is nondistention of the distal colon beginning at the level of the mid transverse colon. There is suggestion of associated mild segmental wall thickening although the findings may be artifactual due to nondistention. No free fluid or air. Nodes and vessels: No retroperitoneal or mesenteric adenopathy. Aorta and inferior vena cava are normal in caliber. Miscellaneous: No ventral hernias. PELVIS: Genitourinary: Bladder wall thickness is normal. Miscellaneous: No inguinal hernias or adenopathy. Bones: No suspicious bony lesions. No vertebral body compression fractures. IMPRESSION: 1. Mild segmental wall thickening of the distal colon may reflect a mild colitis or artifact from nondistention. 2. No evidence of appendicitis. 3. Large hepatics cyst redemonstrated with progressive increase in size compared to the prior studies. 4. Cholelithiasis without CT evidence of cholecystitis. Dictated by: Antony Castillo M.D. on 06/09/2020 at 11:47 Approved by: Antony Castillo M.D. on 06/09/2020 at 11:57
== END ==
PROVIDERS: PCP Family Medicine; Referring Provider Family Medicine; Visit Provider Family Medicine
DX: R10.2 Pelvic and perineal pain (principal); K76.89 Other specified diseases of liver; K80.20 Calculus of gallbladder without cholecystitis without obstruction
CPT/HCPCS: 74177; Q9967

== ENCOUNTER → 2020-07-01 12:32 | Outpatient (CLI) | payer MEDICARE, OTHER, SELFPAY ==
[2020-07-01] MEDS: COVID-19 VACC #1, MRNA(MOD) 100 MCG/0.5 ML VIAL IM (12:40)
== END ==
PROVIDERS: PCP Family Medicine; Visit Provider Internal Medicine
DX: Z23 Encounter for immunization (principal)
CPT/HCPCS: 0011A; 91301

== ENCOUNTER → 2020-07-22 14:14 | Outpatient (CLI) | payer MEDICARE, OTHER, SELFPAY | PROVIDERS: PCP Family Medicine; Visit Provider Physician Assistant | DX: N89.8 Other specified noninflammatory disorders of vagina (principal) | CPT/HCPCS: 87210 ==

== ENCOUNTER → 2020-07-29 13:04 | Outpatient (CLI) | payer MEDICARE, OTHER, SELFPAY ==
[2020-07-29] MEDS: COVID-19 VACC #2, MRNA(MOD) 100 MCG/0.5 ML VIAL IM (13:10)
== END ==
PROVIDERS: PCP Family Medicine; Visit Provider Internal Medicine
DX: Z23 Encounter for immunization (principal)
CPT/HCPCS: 0012A; 91301

== ENCOUNTER → 2020-07-29 17:12 | Outpatient (CLI) | payer MEDICARE, OTHER, SELFPAY ==
[2020-07-29 18:20] LABS: Free T3, Triiodothyronine Free 3.64 pg/mL (2.77-5.27)
[2020-07-29 18:34] LABS: Thyroid Stimulating Hormone 0.302 uIU/mL (0.47-4.68)
[2020-07-30 09:15] LABS: Thyroid Peroxidase Antibodies 564 IU/mL (0-34)
[2020-07-30 16:24] LABS: Anti Thyroglobulin Antibody 732.6 IU/mL (0.0-0.9)
[2020-08-03 05:11] LABS: Triiodothyronine T3 Reverse 23.9 ng/dL (9.2-24.1)
== END ==
PROVIDERS: PCP Family Medicine; Referring Provider Family Medicine; Visit Provider Family Medicine
DX: E03.8 Other specified hypothyroidism (principal); E06.3 Autoimmune thyroiditis
CPT/HCPCS: 36415; 84439; 84443; 84481; 84482; 86376; 86800

== ENCOUNTER 2020-08-09 05:54 | Observation (INO) | payer MEDICARE, OTHER, SELFPAY ==
[2020-08-09] VITALS (20 sets, daily range): BP systolic 126–187; BP diastolic 60–98; PULSE 60–74; RESP 14–20; TEMP 35.6–36.9; O2SAT 92–100; BMI 32.4
--- NOTE | 2020-08-09 06:09 | ED_ITS ---
HPI - Abdominal Pain <Diana Starr, - Last Filed: 08/10/20 03:27> General Chief Complaint: Abdominal Pain Stated Complaint: thinks food poisoning Time Seen by Provider: 08/09/20 05:55 Source: patient and old records reviewed Mode of arrival: Ambulatory Limitations: no limitations History of Present Illness HPI narrative: This is a 70-year-old female comes emergency department complaint of abdominal pain. Patient states about 930 last night she started having nausea and vomiting that lasted throughout the night, approximately 1039 she developed abdominal pain which she describes is all across her abdomen. Patient denies fevers. She denies chest pain or shortness of breath. She denies any pain radiating to her back. She denies any change in location of her pain. Patient denies any flank or back pain. She denies any frequency, dysuria or sense of urgency. She denies any vaginal discharge or bleeding. She states she has not had a bowel movement other than a very small amount of stool. She states she did have a normal bowel movement the day before yesterday. She sta tom she does not think she has been passing flatus. Patient denies any intra- abdominal surgeries. She states she has had orthopedic surgery on her left arm. She takes medication for Selene's, hypertension and dyslipidemia and GERD. Denies tobacco, positive for alcohol. Denies any illicit. She states she started elimination diet recently for her Selene's. She has not had similar symptoms to this in the past except for remotely after eating bad fish. Patient's primary care physician is Dr. Oden. Related Data Home Medications Medication Instructions Recorded Confirmed esomeprazole magnesium 20 mg 20 mg PO DAILY 04/06/20 08/09/20 capsule,delayed release Previous Rx's Medication Instructions Recorded atorvastatin 20 mg tablet 20 mg PO BEDTIME #90 tab 05/10/20 levothyroxine 100 mcg tablet 100 mcg PO DAILY #90 tab 05/10/20 low dose naltrexone 4.5 mg PO DAILY #30 ea 06/06/20 telmisartan 40 mg-amlodipine 5 mg 1 tab PO DAILY #90 tab 06/21/20 tablet bupropion HCl 75 mg tablet 75 mg PO BID #60 tab 07/29/20 Allergies Allergy/AdvReac Type Severity Reaction Status Date / Time levothyroxine sodium Allergy Intermediate rash Verified 08/10/20 09:51 [From Tirosint] adhesive Allergy Mild Redness Verified 08/10/20 09:51 and itching silver Allergy Mild Rash Verified 08/10/20 09:51 [From Tegaderm AG Mesh] Review of Systems <Diana Starr DO - Last Filed: 08/10/20 03:27> Review of Systems ROS Unobtainable: All systems reviewed & are unremarkable except as noted in HPI and below Patient History <Diana Starr DO - Last Filed: 08/10/20 03:27> Medical History Cholelithiasis Hepatic cyst Hypothyroidism (Unknown) Irritable bowel syndrome with diarrhea Knee pain Macromastia Non Hodgkin's lymphoma Osteoarthritis (Unknown) Pelvic pain Strain of gastrocnemius muscle Travel advice encounter Vaginal irritation Surgical History H/O lateral meniscus repair of right knee History of reduction mammoplasty (~2019) History of tonsillectomy and adenoidectomy Hx of tubal ligation Social History marital status: number of children: 2 household members: none lives independently: Yes housing: house education level: college 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 HEENT: Head normocephalic, atraumatic, EOMI, pupils reactive, face symmetric, moist mucous membranes NECK: Supple, full range of motion CARDIOVASCULAR: Regular rate and rhythm without murmurs, rubs or gallops. RESPIRATORY: Breath sounds equal bilaterally, no wheezes rales or rhonchi. Positive for tachypnea. No accessory muscle use. Speaks in full sentences. ABDOMEN: Soft, mild generalized tenderness. Normoactive bowel sounds all 4 quadrants. No guarding or rebound, rigidity, no mass, and nondistended. : No CVA tenderness EXTREMITIES: Normal range of motion, no edema bilateral lower extremities. Neurovascularly intact. 2+ pulses in all 4 extremities NEUROLOGICAL: Cranial nerves II through XII grossly intact. Moving all extremities SKIN: Warm, dry, no petechiae, no rashes or lesions. Initial Vital Signs Initial Vital Signs: Vital Signs Temperature 97.4 F L 08/09/20 06:06 Pulse Rate 67 08/09/20 06:06 Respiratory Rate 20 08/09/20 06:06 Blood Pressure 187/78 H 08/09/20 06:06 Pulse Oximetry 100 08/09/20 06:06 <Sanya Cooper MD - Last Filed: 08/10/20 12:03> Initial Vital Signs Initial Vital Signs: Vital Signs Temperature 97.4 F L 08/09/20 06:06 Pulse Rate 67 08/09/20 06:06 Respiratory Rate 20 08/09/20 06:06 Blood Pressure 187/78 H 08/09/20 06:06 Pulse Oximetry 100 08/09/20 06:06 Course <Diana Starr DO - Last Filed: 08/10/20 03:27> Orders Ordered: Atorvastatin Calcium (Atorvastatin 20 Mg Tablet) 20 mg PO BEDTIME [facility] Benzocaine (Benzocaine/Menthol 1 Mustapha Pkt) 1 each PO Q1HR PRN PRN Reason: Sore Throat Last Admin: 08/09/20 13:22 Dose: 1 each Documented by: ALEXSANDRA Benzocaine/Butamben/Tetracaine HCl (Tetracaine/Benzocaine/Butamben (Cetacaine) Bottle) 1 spray TOP PRN PRN PRN Reason: Sore Throat Bupropion HCl (Bupropion 75 Mg Tablet) 75 mg PO BID [facility] Last Admin: 08/10/20 10:00 Dose: Not Given Documented by: NIKKIE Dextrose (Dextrose 50 % In Water 25 Gm/50 Ml Syringe) 25 gm IV PRN PRN PRN Reason: Hypoglycemia Hydromorphone HCl (Hydromorphone 2 Mg Inj) 2 mg IV Q3H PRN PRN Reason: Pain, Severe (7-10) Last Admin: 08/09/20 16:10 Dose: 2 mg Documented by: RUKHSANA Levothyroxine Sodium (Levothyroxine 100 Mcg Tablet) 100 mcg PO 0600 [facility] Last Admin: 08/10/20 07:44 Dose: 100 mcg Documented by: NIKKIE Morphine Sulfate (Morphine 4 Mg/Ml Inj) 4 mg IV Q4HR PRN PRN Reason: Pain, Severe (7-10) Last Admin: 08/09/20 11:26 Dose: 4 mg Documented by: ALEXSANDRA Naloxone HCl (Naloxone 0.4 Mg/Ml Vial) 0.2 mg IV Q2MIN PRN PRN Reason: Opiate Reversal Non-Formulary Medication (Telmisartan-Amlodipine) 1 tab PO DAILY [facility] Last Admin: 08/10/20 10:01 Dose: Not Given Documented by: NIKKIE Non-Formulary Medication (Low Dose Naltrexone) 4.5 mg PO BEDTIME [facility] Ondansetron HCl (Ondansetron 4 Mg/2 Ml Inj) 4 mg IV Q8HR PRN PRN Reason: Nausea And Vomiting Last Admin: 08/09/20 15:38 Dose: 4 mg Documented by: RUKHSANA Pantoprazole Sodium (Pantoprazole 20 Mg Tablet) 20 mg PO 0600 [facility] Last Admin: 08/10/20 06:59 Dose: 20 mg Documented by: VASILE Discontinued Medications Sodium Chloride (Normal Saline 0.9%) 1,000 mls @ 1,000 mls/hr IV BOLUS ONE Stop: 08/09/20 07:06 Last Infusion: 08/09/20 07:45 Dose: 0 mls/hr Documented by: Admin: 08/09/20 06:16 Dose: 1,000 mls/hr Documented by: MEHNAZ Sodium Chloride (Normal Saline 0.9%) 500 mls @ 1,000 mls/hr IV BOLUS ONE Stop: 08/09/20 08:01 Last Admin: 08/09/20 07:44 Dose: 1,000 mls/hr Documented by: JEREMÍAS Sodium Chloride (Normal Saline 0.9%) 1,000 mls @ 75 mls/hr IV CONT [facility] Last Admin: 08/09/20 22:00 Dose: 75 mls/hr Documented by: Infusion: 08/09/20 22:00 Dose: 75 mls/hr Documented by: Admin: 08/09/20 11:25 Dose: 75 mls/hr Documented by: ALEXSANDRA Insulin Aspart (Insulin Aspart 100 Unit/Ml Insuln Pen) 0 unit SUBCUT Q6H [facility]; Protocol Last Admin: 08/09/20 20:56 Dose: Not Given Documented by: Admin: 08/09/20 17:38 Dose: Not Given Documented by: Admin: 08/09/20 11:22 Dose: Not Given Documented by: ALEXSANDRA Ketorolac Tromethamine (Ketorolac 60 Mg/2 Ml Vial) 30 mg IV NOW ONE Stop: 08/09/20 06:08 Last Admin: 08/09/20 06:14 Dose: 30 mg Documented by: MEHNAZ Lorazepam (Lorazepam 2 Mg/Ml Inj) 0.5 mg IV NOW ONE Stop: 08/09/20 07:32 Last Admin: 08/09/20 07:39 Dose: 0.5 mg Documented by: JEREMÍAS Morphine Sulfate (Morphine 4 Mg/Ml Inj) 4 mg IV NOW ONE Stop: 08/09/20 08:14 Last Admin: 08/09/20 08:17 Dose: 4 mg Documented by: TAYO Morphine Sulfate (Morphine 4 Mg/Ml Inj) 4 mg IV NOW ONE Stop: 08/09/20 08:46 Last Admin: 08/09/20 08:56 Dose: 4 mg Documented by: TAYO Morphine Sulfate (Morphine 4 Mg/Ml Inj) 4 mg IV NOW ONE Stop: 08/09/20 09:18 Last Admin: 08/09/20 09:21 Dose: 4 mg Documented by: JEREMÍAS Non-Formulary Medication (Esomeprazole Magnesium) 20 mg PO DAILY [facility] Non-Formulary Medication (Low Dose Naltrexone) 4.5 mg PO DAILY [facility] Ondansetron HCl (Ondansetron 4 Mg/2 Ml Inj) 4 mg IV NOW ONE Stop: 08/09/20 06:08 Last Admin: 08/09/20 06:14 Dose: 4 mg Documented by: MEHNAZ Ondansetron HCl (Ondansetron 4 Mg/2 Ml Inj) 4 mg IV NOW ONE Stop: 08/09/20 08:14 Last Admin: 08/09/20 08:17 Dose: 4 mg Documented by: TAYO Vital Signs Vital signs: Vital Signs - 8 hr 08/09/20 06:06 08/09/20 06:28 08/09/20 06:39 Temperature 97.4 F L Pulse Rate 67 67 74 Respiratory Rate 20 Blood Pressure 187/78 H Pulse Oximetry 100 98 97 08/09/20 06:51 Temperature Pulse Rate 69 Respiratory Rate Blood Pressure 133/63 Pulse Oximetry 96 <Sanya Cooper MD - Last Filed: 08/10/20 12:03> Course Course Narrative: 7:00 a.m., sign out from dr starr, CT scan results pending. Pain is controlled. Decision to Admit Date: 08/09/20 Decision to Admit time: 07:15 Orders Ordered: Atorvastatin Calcium (Atorvastatin 20 Mg Tablet) 20 mg PO BEDTIME [facility] Benzocaine (Benzocaine/Menthol 1 Mustapha Pkt) 1 each PO Q1HR PRN PRN Reason: Sore Throat Last Admin: 08/09/20 13:22 Dose: 1 each Documented by: ALEXSANDRA Benzocaine/Butamben/Tetracaine HCl (Tetracaine/Benzocaine/Butamben (Cetacaine) Bottle) 1 spray TOP PRN PRN PRN Reason: Sore Throat Bupropion HCl (Bupropion 75 Mg Tablet) 75 mg PO BID [facility] Last Admin: 08/10/20 10:00 Dose: Not Given Documented by: NIKKIE Dextrose (Dextrose 50 % In Water 25 Gm/50 Ml Syringe) 25 gm IV PRN PRN PRN Reason: Hypoglycemia Hydromorphone HCl (Hydromorphone 2 Mg Inj) 2 mg IV Q3H PRN PRN Reason: Pain, Severe (7-10) Last Admin: 08/09/20 16:10 Dose: 2 mg Documented by: RUKHSANA Levothyroxine Sodium (Levothyroxine 100 Mcg Tablet) 100 mcg PO 0600 [facility] Last Admin: 08/10/20 07:44 Dose: 100 mcg Documented by: NIKKIE Morphine Sulfate (Morphine 4 Mg/Ml Inj) 4 mg IV Q4HR PRN PRN Reason: Pain, Severe (7-10) Last Admin: 08/09/20 11:26 Dose: 4 mg Documented by: ALEXSANDRA Naloxone HCl (Naloxone 0.4 Mg/Ml Vial) 0.2 mg IV Q2MIN PRN PRN Reason: Opiate Reversal Non-Formulary Medication (Telmisartan-Amlodipine) 1 tab PO DAILY [facility] Last Admin: 08/10/20 10:01 Dose: Not Given Documented by: NIKKIE Non-Formulary Medication (Low Dose Naltrexone) 4.5 mg PO BEDTIME [facility] Ondansetron HCl (Ondansetron 4 Mg/2 Ml Inj) 4 mg IV Q8HR PRN PRN Reason: Nausea And Vomiting Last Admin: 08/09/20 15:38 Dose: 4 mg Documented by: RUKHSANA Pantoprazole Sodium (Pantoprazole 20 Mg Tablet) 20 mg PO 0600 [facility] Last Admin: 08/10/20 06:59 Dose: 20 mg Documented by: VASILE Discontinued Medications Sodium Chloride (Normal Saline 0.9%) 1,000 mls @ 1,000 mls/hr IV BOLUS ONE Stop: 08/09/20 07:06 Last Infusion: 08/09/20 07:45 Dose: 0 mls/hr Documented by: Admin: 08/09/20 06:16 Dose: 1,000 mls/hr Documented by: MEHNAZ Sodium Chloride (Normal Saline 0.9%) 500 mls @ 1,000 mls/hr IV BOLUS ONE Stop: 08/09/20 08:01 Last Admin: 08/09/20 07:44 Dose: 1,000 mls/hr Documented by: JEREMÍAS Sodium Chloride (Normal Saline 0.9%) 1,000 mls @ 75 mls/hr IV CONT [facility] Last Admin: 08/09/20 22:00 Dose: 75 mls/hr Documented by: Infusion: 08/09/20 22:00 Dose: 75 mls/hr Documented by: Admin: 08/09/20 11:25 Dose: 75 mls/hr Documented by: ALEXSANDRA Insulin Aspart (Insulin Aspart 100 Unit/Ml Insuln Pen) 0 unit SUBCUT Q6H [facility]; Protocol Last Admin: 08/09/20 20:56 Dose: Not Given Documented by: Admin: 08/09/20 17:38 Dose: Not Given Documented by: Admin: 08/09/20 11:22 Dose: Not Given Documented by: ALEXSANDRA Ketorolac Tromethamine (Ketorolac 60 Mg/2 Ml Vial) 30 mg IV NOW ONE Stop: 08/09/20 06:08 Last Admin: 08/09/20 06:14 Dose: 30 mg Documented by: MEHNAZ Lorazepam (Lorazepam 2 Mg/Ml Inj) 0.5 mg IV NOW ONE Stop: 08/09/20 07:32 Last Admin: 08/09/20 07:39 Dose: 0.5 mg Documented by: JEREMÍAS Morphine Sulfate (Morphine 4 Mg/Ml Inj) 4 mg IV NOW ONE Stop: 08/09/20 08:14 Last Admin: 08/09/20 08:17 Dose: 4 mg Documented by: TAYO Morphine Sulfate (Morphine 4 Mg/Ml Inj) 4 mg IV NOW ONE Stop: 08/09/20 08:46 Last Admin: 08/09/20 08:56 Dose: 4 mg Documented by: TAYO Morphine Sulfate (Morphine 4 Mg/Ml Inj) 4 mg IV NOW ONE Stop: 08/09/20 09:18 Last Admin: 08/09/20 09:21 Dose: 4 mg Documented by: JEREMÍAS Non-Formulary Medication (Esomeprazole Magnesium) 20 mg PO DAILY [facility] Non-Formulary Medication (Low Dose Naltrexone) 4.5 mg PO DAILY [facility] Ondansetron HCl (Ondansetron 4 Mg/2 Ml Inj) 4 mg IV NOW ONE Stop: 08/09/20 06:08 Last Admin: 08/09/20 06:14 Dose: 4 mg Documented by: MEHNAZ Ondansetron HCl (Ondansetron 4 Mg/2 Ml Inj) 4 mg IV NOW ONE Stop: 08/09/20 08:14 Last Admin: 08/09/20 08:17 Dose: 4 mg Documented by: TAYO Reevaluation(s) Reevaluation #1: Spoke with patient results of bowel obstruction. No current general surgeon for continued care. Pain is controlled. Time: 07:24 Consultations Consultation #1: Spoke with general surgery Dr. Cheng, will follow. Admit to hospital Time: 07:28 Consultation #2: Spoke with Dr. Schroeder, hospitalist, will admit Time: 07:34 Consultation #3: Spoke with pharmacist, in patient, naltrexone taken 3 days ago and has short half-life a 4 hours. Okay to give morphine Time: 08:15 Vital Signs Vital signs: Vital Signs - 8 hr 08/09/20 06:06 08/09/20 06:28 08/09/20 06:39 Temperature 97.4 F L Pulse Rate 67 67 74 Respiratory Rate 20 Blood Pressure 187/78 H Pulse Oximetry 100 98 97 08/09/20 06:51 Temperature Pulse Rate 69 Respiratory Rate Blood Pressure 133/63 Pulse Oximetry 96 MDM - Abdominal Pain <Diana Starr, - Last Filed: 08/10/20 03:27> Lab Data Result diagrams: 08/09/20 06:05 08/10/20 05:00 Labs: Lab Results 08/09/20 08/09/20 Range/Units 06:05 06:05 WBC 13.1 H (4.5-11.0) X10^3/uL RBC 5.08 (4.0-5.2) X10^6/uL Hgb 15.1 (12.0-16.0) g/dL Hct 44.4 (36-46) % MCV 87.4 (80-100) fL MCH 29.7 (26-34) PG MCHC 34.0 (30-36) % RDW 12.6 (11.6-14.8) % Plt Count 235 (150-400) X10^3/uL Neut % (Auto) 89.4 H (50-75) % Lymph % (Auto) 7.8 L (25-40) % [place] % (Auto) 2.5 L (3-14) % Eos % (Auto) 0.1 L (2-4) % Baso % (Auto) 0.2 (0-2) % Neut # (Auto) 41422 H (5481-3695) /uL Lymph # (Auto) 1000 L (9882-3200) /uL [place] # (Auto) 300 (0-900) /uL Eos # (Auto) 0 (0-450) /uL Baso # (Auto) 0 (0-100) /uL Sodium 137 (137-145) mmol/L Potassium 4.3 (3.4-5.1) mmol/L Chloride 101 (98-107) mmol/L Carbon Dioxide 27 (22-32) mmol/L BUN 16 (7-17) mg/dL Creatinine 0.84 (0.52-1.04) mg/dL Estimated GFR > 60.0 (>60) mL/min BUN/Creatinine Ratio 19.0 (6-22) Glucose 204 H (80-110) mg/dL Calcium 10.0 (8.4-10.2) mg/dL Total Bilirubin 1.0 (0.2-1.3) mg/dL AST 27 (14-36) IU/L ALT 29 (<35) IU/L Alkaline Phosphatase 119 (38-126) U/L Total Protein 8.5 H (6.3-8.2) g/dL Albumin 5.0 (3.5-5.0) g/dL Globulin 3.5 (1.7-4.1) g/dL Albumin/Globulin Ratio 1.4 (1.0-2.8) Lipase 126 (23-300) U/L [facility] Narrative Medical decision making narrative: 70 year old female with complaint of vomiting and abdominal pain. Patient has a leukocytosis with leftward shift. Normal chemistry except for glucose of 204 no elevated total protein. Patient has very minimal stool output with vomiting and abdominal pain and CT abd/pelvis was ordered. Patient has prior imaging indicating large hepatic cyst, cholelithiasis and possible early colitis on recent CT in May. Patient signed out to Dr. Cooper while imaging is pending. <Sanya Cooper MD - Last Filed: 08/10/20 12:03> Differential Diagnosis Differential diagnosis: Likely abdominal pain, acute appendicitis, constipation, diverticulitis and small bowel obstruction Lab Data Attestation: I reviewed the patient's lab results. Labs: Lab Results 08/09/20 08/09/20 Range/Units 06:05 06:05 WBC 13.1 H (4.5-11.0) X10^3/uL RBC 5.08 (4.0-5.2) X10^6/uL Hgb 15.1 (12.0-16.0) g/dL Hct 44.4 (36-46) % MCV 87.4 (80-100) fL MCH 29.7 (26-34) PG MCHC 34.0 (30-36) % RDW 12.6 (11.6-14.8) % Plt Count 235 (150-400) X10^3/uL Neut % (Auto) 89.4 H (50-75) % Lymph % (Auto) 7.8 L (25-40) % [place] % (Auto) 2.5 L (3-14) % Eos % (Auto) 0.1 L (2-4) % Baso % (Auto) 0.2 (0-2) % Neut # (Auto) 01893 H (0193-3462) /uL Lymph # (Auto) 1000 L (5565-6951) /uL [place] # (Auto) 300 (0-900) /uL Eos # (Auto) 0 (0-450) /uL Baso # (Auto) 0 (0-100) /uL Sodium 137 (137-145) mmol/L Potassium 4.3 (3.4-5.1) mmol/L Chloride 101 (98-107) mmol/L Carbon Dioxide 27 (22-32) mmol/L BUN 16 (7-17) mg/dL Creatinine 0.84 (0.52-1.04) mg/dL Estimated GFR > 60.0 (>60) mL/min BUN/Creatinine Ratio 19.0 (6-22) Glucose 204 H (80-110) mg/dL Calcium 10.0 (8.4-10.2) mg/dL Total Bilirubin 1.0 (0.2-1.3) mg/dL AST 27 (14-36) IU/L ALT 29 (<35) IU/L Alkaline Phosphatase 119 (38-126) U/L Total Protein 8.5 H (6.3-8.2) g/dL Albumin 5.0 (3.5-5.0) g/dL Globulin 3.5 (1.7-4.1) g/dL Albumin/Globulin Ratio 1.4 (1.0-2.8) Lipase 126 (23-300) U/L Imaging Data CT scan - abdomen/pelvis: Radiologist's Impression: Overnight Radiology read on CT scan abdomen pelvis complete distal small-bowel obstruction is proximal to the terminal ileum suspect closed loop obstruction. Normal terminal ileum and appendix. Cholelithiasis in a physiologically distended gallbladder. No biliary dilatation. [address] Scan ReportSigned Patient: Keisha Mclean R#: [id number]: 9Acct:[id number]/Sex: 70 / FDate of Service: 08/09/20Loc: [id number] Number: [id number] Procedure: CT abdomen pelvis w con Ordering Provider: Diana Starr D.O. PROCEDURE: CT ABDOMEN PELVIS W CON INDICATIONS: abdominal pain, vomiting, no bowel movement x 24 hours TECHNIQUE: After the administration of intravenous contrast, 5 mm thick sections acquired from the diaphragm to the symphysis. 5 mm coronal and sagittal reformats were acquired. For radiation dose reduction, the following was used: automated exposure control, adjustment of mA and/or kV according to patient size. COMPARISON: [facility], CT, CT ABDOMEN PELVIS W CON, 06/09/2020, 8:13. FINDINGS: Image quality: Excellent. ABDOMEN: Lung bases: Lung bases are clear. Heart size is normal. Solid organs: Liver is normal in size and enhancement. Stable large hepatic cyst measuring 9.1 cm. Gallbladder contains gallstones. There is borderline gallbladder wall thickening. Findings are stable. No fluid around the gallbladder.. Biliary system is non dilated. Pancreas enhances normally. Spleen is normal in size and enhancement. No adrenal nodules. Kidneys demonstrate normal size and enhancement, without hydronephrosis. Peritoneum and bowel: There is a distal small bowel obstruction at the level of the distal ileum. The proximal small bowel is normal caliber. Findings suggest either developing small bowel obstruction or a possible closed loop obstruction. There is a small amount of free fluid in the pelvis. No free air or abscess cavity. Nodes and vessels: No retroperitoneal or mesenteric adenopathy by size criteria. Aorta and inferior vena cava are normal in size. Miscellaneous: No ventral hernias. PELVIS: Genitourinary: Bladder wall thickness is normal. Miscellaneous: No inguinal hernias or adenopathy. Bones: No suspicious bony lesions. No vertebral body compression fractures. Lumbar degenerative change. IMPRESSION: 1. Distal small bowel obstruction. Obstruction occurs at the level of the distal ileum. Cannot exclude closed loop obstruction. 2. No free air. Small volume pelvic ascites. 3. Cholelithiasis. 4. Large hepatic cyst, unchanged. Comment: Final report is concordant with preliminary interpretation provided by [facility]. Dictated by: Shimon Aiken M.D. on 08/09/2020 at 8:03 Approved by: Shimon Aiken M.D. on 08/09/2020 at 8:08 Abdominal x-ray: Radiologist's Impression: [address] [id number] ReportSigned Patient: Keisha Mclean R#: [id number]: 9Acct:[id number]/Sex: 70 / FDate of Service: 08/09/20Loc: [id number] Number: [id number] Procedure: XR abdomen 1V Ordering Provider: Sanya Cooper MD PROCEDURE: XR CHEST 1V INDICATIONS: Post placement NG tube TECHNIQUE: One view of the chest was acquired. COMPARISON: None. FINDINGS: Surgical changes and devices: Esophagogastric tube has been placed with the side port of the tube just below the EG junction. Lungs and pleura: Lungs are clear. No pleural effusions or pneumothorax. Mediastinum: Mediastinal contours appear normal. Heart size is normal. Bones and chest wall: No suspicious bony lesions. Overlying soft tissues appear unremarkable. IMPRESSION: Esophagogastric tube positioning normal, with side port just below the EG junction. If clinically desired this could be advanced several cm or further. Otherwise, the study is normal for age. Dictated by: Israel Franks M.D. on 08/09/2020 at 8:20 Approved by: Israel Franks M.D. on 08/09/2020 at 8:26 ECG Data Attestation: I personally reviewed and interpreted this ECG as follows: Interpretation: Normal sinus rhythm, normal EKG, rate 60, no ST elevation depression. MDM Narrative Medical decision making narrative: Appropriate for admission. Will need NG tube for decompression. Spoke with hospitalist as well as general surgeon. Discharge Plan Departure Patient Disposition: Admitted As Inpatient Clinical Impression: Small bowel obstruction Admit Date/Time: 08/09/20 07:49 Admit Provider: Mickey Schroeder ED Sign-out <Diana Starr, - Last Filed: 08/10/20 03:27> Sign Out Provider Sign Out Attestation: Patient Sign Out occurred on 08/09/20 at 0700 . Patient's care was discussed, and care was transferred from Dr. Starr to Allison.
[2020-08-09 06:14] LABS: Add Manual Diff / Slide Review NO; Basophils Absolute Auto 0 /uL (0-100); Basophils Percent Auto 0.2 % (0-2); Eosinophils Absolute Auto 0 /uL (0-450); Eosinophils Percent Auto 0.1 % (2-4); Hematocrit 44.4 % (36-46); Hemoglobin 15.1 g/dL (12.0-16.0); Lymphocytes Absolute Auto 1000 /uL (1100-4500); Lymphocytes Percent Auto 7.8 % (25-40); Mean Corpuscular Hemoglobin 29.7 PG (26-34); Mean Corpuscular Volume 87.4 fL (80-100); Monocytes Absolute Auto 300 /uL (0-900); Monocytes Percent Auto 2.5 % (3-14); Neutrophils Absolute Auto 11700 /uL (1500-7000); Neutrophils Percent Auto 89.4 % (50-75); Platelet Count 235 X10^3/uL (150-400); Red Blood Cell Count 5.08 X10^6/uL (4.0-5.2); Red Cell Distribution Width 12.6 % (11.6-14.8); White Blood Cell Count 13.1 X10^3/uL (4.5-11.0)
[2020-08-09] MEDS: KETOROLAC 60 MG/2 ML VIAL 30 MG IV (06:14)
[2020-08-09] MEDS: ONDANSETRON 4 MG/2 ML INJ IV ×3 (06:14→15:38)
[2020-08-09] MEDS: SODIUM CHLORIDE 0.9% 1,000 ML 1000 ML IV (06:16)
[2020-08-09 06:23] LABS: Alanine Aminotransferase 29 IU/L (<35); Albumin Globulin Ratio 1.4 (1.0-2.8); Alkaline Phosphatase 119 U/L (38-126); Aspartate Aminotransferase 27 IU/L (14-36); Blood Urea Nitrogen 16 mg/dL (7-17); Carbon Dioxide 27 mmol/L (22-32); Chloride 101 mmol/L (98-107); Estimated Glomerular Filt Rate > 60.0 mL/min (>60); Globulin 3.5 g/dL (1.7-4.1); Glucose 204 mg/dL (80-110); HEMOLYSIS < 15 (0-50); Lipase 126 U/L (23-300); Potassium 4.3 mmol/L (3.4-5.1); Sodium 137 mmol/L (137-145); Total Protein 8.5 g/dL (6.3-8.2)
--- NOTE | 2020-08-09 07:32 | DI.RAD.S_ITS ---
PROCEDURE: XR CHEST 1V INDICATIONS: Post placement NG tube TECHNIQUE: One view of the chest was acquired. COMPARISON: None. FINDINGS: Surgical changes and devices: Esophagogastric tube has been placed with the side port of the tube just below the EG junction. Lungs and pleura: Lungs are clear. No pleural effusions or pneumothorax. Mediastinum: Mediastinal contours appear normal. Heart size is normal. Bones and chest wall: No suspicious bony lesions. Overlying soft tissues appear unremarkable. IMPRESSION: Esophagogastric tube positioning normal, with side port just below the EG junction. If clinically desired this could be advanced several cm or further. Otherwise, the study is normal for age. Dictated by: Israel Franks M.D. on 08/09/2020 at 8:20 Approved by: Israel Franks M.D. on 08/09/2020 at 8:26
[2020-08-09] MEDS: LORazepam 2 MG/ML INJ 0.5 MG IV (07:39)
[2020-08-09] MEDS: SODIUM CHLORIDE 0.9% 500 ML 1000 ML IV (07:44)
[2020-08-09] MEDS: MORPHINE 4 MG/ML INJ IV ×4 (08:17→11:26)
[2020-08-09 09:06] LABS: COVID19 -Nasal RAPID Negative (Negative)
--- NOTE | 2020-08-09 09:49 | P.HP_ITS ---
History of Present Illness History of Present Illness Date Patient Seen: 08/09/20 Time Patient Seen: 11:00 Chief complaint: thinks food poisoning Narrative: Keisha Mclean is a 70-year-old female with a past medical history of remote Hodgkin's lymphoma, hypertension, hyperlipidemia, hypothyroidism, IBS D, and obesity who presented with abrupt onset of cramping abdominal pain and nausea vomiting since yesterday evening. At around 930 yesterday evening she had a right lower quadrant crampy pain that was initially mild, then migrated into her epigastrium. At around 10:30 p.m. she then had persistent abdominal pain with nausea and vomiting. She thought she had food poisoning but around 530 in the morning when she was still continuing to retch she decided to come to emergency room. She has a history of a tubal ligation in the past, but no other abdominal surgeries. She denies any recent fevers or chills. She has been struggling with vaginitis following an oral course of antibiotics which has now resolved she currently denies any vaginal discomfort and no dysuria or urinary frequency. She denies any cough, shortness of breath, chest pain, or palpit ations. In the emergency room, the patient was mildly hypertensive, improved with pain control, the remainder of her vital signs were unremarkable. She was given 2 L of fluid, Zofran and a few doses of morphine. CT scan performed with showed a distal SBO in the RLQ. Patient was admitted to medicine for further management of SBO with general surgery consultation. COVID 19 testing was negative. Patient History Medical History Cholelithiasis Hepatic cyst Hypothyroidism (Unknown) Irritable bowel syndrome with diarrhea Knee pain Macromastia Non Hodgkin's lymphoma Osteoarthritis (Unknown) Pelvic pain Strain of gastrocnemius muscle Travel advice encounter Vaginal irritation Surgical History H/O lateral meniscus repair of right knee History of reduction mammoplasty (~2019) History of tonsillectomy and adenoidectomy Hx of tubal ligation Family & Social History Social History: household members none Prior Living Arrangements Apartment/Condo lives independently Yes Safety & Behavioral: Feels Safe in Current Yes Environment Been Physically Hurt or No Threatened By a Person Suicidal Ideation Description None Suicide Plan Description No Plan Tobacco & Substance use: Smoking Status Never smoker alcohol intake current alcohol intake frequency 0-2 drinks per day Substance Use Type does not use Meds Home Medications and Allergies Home Medications Medication Instructions Recorded Confirmed Type esomeprazole magnesium 20 mg 20 mg PO DAILY 04/06/20 08/09/20 History capsule,delayed release atorvastatin 20 mg tablet 20 mg PO BEDTIME #90 tab 05/10/20 08/09/20 Rx levothyroxine 100 mcg tablet 100 mcg PO DAILY #90 tab 05/10/20 08/09/20 Rx low dose naltrexone 4.5 mg PO DAILY #30 ea 06/06/20 08/09/20 Rx telmisartan 40 mg-amlodipine 5 mg 1 tab PO DAILY #90 tab 06/21/20 08/09/20 Rx tablet bupropion HCl 75 mg tablet 75 mg PO BID #60 tab 07/29/20 08/09/20 Rx Allergies Allergy/AdvReac Type Severity Reaction Status Date / Time levothyroxine sodium Allergy Intermediate rash Verified 08/10/20 09:51 [From Tirosint] adhesive Allergy Mild Redness Verified 08/10/20 09:51 and itching silver Allergy Mild Rash Verified 08/10/20 09:51 [From Tegaderm AG Mesh] Review of Systems Review of Systems ROS: Yes All systems reviewed with the patient and are negative except as otherwise documented (distension, abdominal pain) Exam Vital Signs (past 8 hours): - 08/10/20 05:00 08/10/20 05:35 08/10/20 08:35 Temperature 97.6 F 98.2 F Pulse Rate 54 L 62 Respiratory Rate 18 17 Blood Pressure 122/55 L 122/73 Pulse Oximetry 97 96 98 Oxygen Delivery Method Room Air Oxygen Flow Rate 0 Narrative Exam Narrative: Patient is comfortable in no acute distress. NG tube is bothering her nose Nontoxic Head and neck atraumatic normocephalic Eyes clear no evidence of jaundice Neck supple, trachea midline Chest: Symmetric, no defect, no subcutaneous air Respiratory: Decreased bases bilaterally otherwise clear no wheezes Cardiac: Heart regular rate and rhythm GI: Abdomen is distended, soft with mild right pelvic tenderness Skin General: no rashes or lesions noted and turgor normal Neuro General: patient alert, patient awake and patient oriented x3 Extrem General: normal to inspection and full ROM Psych Appearance: grossly normal Mental Status: mental status grossly normal Speech and Movement: speech and movement normal Objective Labs Result Diagrams: 08/09/20 06:05 08/10/20 05:00 Labs: Laboratory Results - last 24 hr 08/10/20 08/10/20 08/10/20 05:00 05:00 05:00 Sodium 144 Potassium 4.2 Chloride 109 H Carbon Dioxide 30 BUN 19 H Creatinine 1.06 H Estimated GFR 51.0 L BUN/Creatinine Ratio 17.9 Glucose 114 H Hemoglobin A1c 5.8 Calcium 9.1 Magnesium 2.5 H Total Bilirubin 0.7 AST 29 ALT 23 Alkaline Phosphatase 76 Total Protein 7.1 Albumin 4.2 Globulin 2.9 Albumin/Globulin Ratio 1.4 TSH 0.44 L Free T4 1.29 Assessment & Plan Assessment and plan (1) Small bowel obstruction: Problem details: Seen on CT as lower pelvic transition and SBO which I reviewed personally. Plan SBFT demonstrated resolution of SBO. will d/c NGT, start clears. Surgery to sign off if ok with medical team Status: Acute (2) Obesity: Problem details: chronic, diet discussed Status: Acute (3) Irritable bowel syndrome with diarrhea: Problem details: not addressed by surgery Status: Acute (4) Hepatic cyst: Problem details: [address], Simple appearing, unchanged from 2017 Status: Acute Quality VTE Deep Vein Thrombosis/Pulmonary Embolism Present on Admission: No
--- NOTE | 2020-08-09 11:10 | DI.RAD.S_ITS ---
PROCEDURE: [place] SMALL BOWEL FOLLOW THROUGH INDICATIONS: SBO, therapeutic/diagnostic COMPARISON: [facility], CT, CT ABDOMEN PELVIS W CON, 08/09/2020, 6:16. FINDINGS: Contrast is seen in the right colon at the 5 hour time point. No definite transition point is seen. Diffuse dilated small bowel loops are again noted. Residual contrast material is present in the stomach. Dictated by: Bobby Crocker M.D. on 08/09/2020 at 17:43 Approved by: Bobby Crocker M.D. on 08/09/2020 at 17:45
[2020-08-09] MEDS: SODIUM CHLORIDE 0.9% 1,000 ML 75 ML IV ×2 (11:25→22:00)
--- NOTE | 2020-08-09 11:25 | PM.HP.1 ---
History of Present Illness History of Present Illness Date Patient Seen: 08/09/20 Time Patient Seen: 11:00 Chief complaint: thinks food poisoning Narrative: Keisha Mclean is a 70-year-old female with a past medical history of remote Hodgkin's lymphoma, hypertension, hyperlipidemia, hypothyroidism, IBS D, and obesity who presented with abrupt onset of cramping abdominal pain and nausea vomiting since yesterday evening. At around 930 yesterday evening she had a right lower quadrant crampy pain that was initially mild, then migrated into her epigastrium. At around 10:30 p.m. she then had persistent abdominal pain with nausea and vomiting. She thought she had food poisoning but around 530 in the morning when she was still continuing to retch she decided to come to emergency room. She has a history of a tubal ligation in the past, but no other abdominal surgeries. She denies any recent fevers or chills. She has been struggling with vaginitis following an oral course of antibiotics which has now resolved she currently denies any vaginal discomfort and no dysuria or urinary frequency. She denies any cough, shortness of breath, chest pain, or palpitations. In the emergency room, the patient was mildly hypertensive, improved with pain control, the remainder of her vital signs were unremarkable. She was given 2 L of fluid, Zofran and a few doses of morphine. CT scan performed with showed a distal SBO in the RLQ. Patient was admitted to medicine for further management of SBO with general surgery consultation. COVID 19 testing was negative. Patient History Medical History Cholelithiasis Hepatic cyst Hypothyroidism (Unknown) Irritable bowel syndrome with diarrhea Knee pain Macromastia Non Hodgkin's lymphoma Osteoarthritis (Unknown) Pelvic pain Strain of gastrocnemius muscle Travel advice encounter Vaginal irritation Surgical History H/O lateral meniscus repair of right knee History of reduction mammoplasty (~2019) History of tonsillectomy and adenoidectomy Hx of tubal ligation Family & Social History Social History: household members none Prior Living Arrangements Apartment/Condo lives independently Yes Safety & Behavioral: Feels Safe in Current Yes Environment Been Physically Hurt or No Threatened By a Person Suicidal Ideation Description None Suicide Plan Description No Plan Tobacco & Substance use: Smoking Status Never smoker alcohol intake current alcohol intake frequency 0-2 drinks per day Substance Use Type does not use Meds Home Medications and Allergies Home Medications Medication Instructions Recorded Confirmed Type esomeprazole magnesium 20 mg 20 mg PO DAILY 04/06/20 07/22/20 History capsule,delayed release atorvastatin 20 mg tablet 20 mg PO BEDTIME #90 tab 05/10/20 07/22/20 Rx levothyroxine 100 mcg tablet 100 mcg PO DAILY #90 tab 05/10/20 07/22/20 Rx low dose naltrexone 4.5 mg PO DAILY #30 ea 06/06/20 07/22/20 Rx telmisartan 40 mg-amlodipine 5 mg 1 tab PO DAILY #90 tab 06/21/20 07/22/20 Rx tablet bupropion HCl 75 mg tablet 75 mg PO BID #60 tab 07/29/20 07/29/20 Rx Allergies Allergy/AdvReac Type Severity Reaction Status Date / Time levothyroxine sodium Allergy Intermediate rash Verified 08/09/20 06:06 [From Tirosint] adhesive Allergy Mild Redness Verified 08/09/20 06:06 and itching silver Allergy Mild Rash Verified 08/09/20 06:06 [From Tegaderm AG Mesh] Review of Systems Review of Systems Narrative: All other systems reviewed with the patient and are negative unless otherwise stated. Exam Vital Signs (past 8 hours): - 08/09/20 06:06 08/09/20 06:28 08/09/20 06:39 Temperature 97.4 F L Pulse Rate 67 67 74 Respiratory Rate 20 Blood Pressure 187/78 H Pulse Oximetry 100 98 97 08/09/20 06:51 08/09/20 07:00 08/09/20 07:30 Temperature Pulse Rate 69 68 68 Respiratory Rate Blood Pressure 133/63 126/60 158/66 H Pulse Oximetry 96 97 96 08/09/20 08:02 08/09/20 08:04 08/09/20 08:30 Temperature Pulse Rate 67 60 Respiratory Rate Blood Pressure 165/74 H Pulse Oximetry 96 99 93 08/09/20 08:31 08/09/20 09:00 08/09/20 09:30 Temperature Pulse Rate 60 67 Respiratory Rate Blood Pressure 145/98 H 152/67 H Pulse Oximetry 92 97 94 08/09/20 09:35 08/09/20 09:59 Temperature 98.4 F Pulse Rate 61 Respiratory Rate 14 Blood Pressure 141/70 H Pulse Oximetry 98 98 Oxygen Delivery Method Room Air Oxygen Flow Rate 0 Narrative Exam Narrative: GENERAL APPEARANCE: Well developed, well nourished, in no acute distress with NG tube in place. NG with brown tinged predominantly clear fluid. SKIN: Inspection of the skin reveals no rashes, ulcerations or petechiae. HEENT: Normocephalic atraumatic, extraocular muscles are intact, oropharynx is clear and mucous membranes are moist, neck is supple without adenopathy NECK: Supple and symmetric. There was no thyroid enlargement, and no tenderness, or masses were felt. CHEST: Normal AP diameter and normal contour without any kyphoscoliosis. LUNGS: Auscultation of the lungs revealed no wheezes, rhonchi, or rales. CARDIOVASCULAR: There was a regular rate and rhythm without any murmurs, gallops, rubs. Peripheral pulses were 2+ and symmetric. ABDOMEN: soft but mildly distended with active bowel sounds. non-tender. MUSCULOSKELETAL: There was no tenderness or effusions noted. Muscle strength and tone were normal. EXTREMITIES: No cyanosis, clubbing or edema. NEUROLOGIC: Alert and oriented x 3. Normal affect. Strength is +5/5 in the Upper Extremities and Lower Extremities Bilaterally. Sensation to touch was normal. Objective ECG Impression: Normal sinus rhythm, unremarkable EKG. Imaging CT scan - abdomen: Radiologist's impression: IMPRESSION: 1. Distal small bowel obstruction. Obstruction occurs at the level of the distal ileum. Cannot exclude closed loop obstruction. 2. No free air. Small volume pelvic ascites. 3. Cholelithiasis. 4. Large hepatic cyst, unchanged. Comment: Final report is concordant with preliminary interpretation provided by [facility]. Dictated by: Shimon Aiken M.D. on 08/09/2020 at 8:03 Approved by: Shimon Aiken M.D. on 08/09/2020 at 8:08 Labs Result Diagrams: 08/09/20 06:05 08/09/20 06:05 Labs: Laboratory Results - last 24 hr 08/09/20 08/09/20 08/09/20 06:05 06:05 08:35 WBC 13.1 H RBC 5.08 Hgb 15.1 Hct 44.4 MCV 87.4 MCH 29.7 MCHC 34.0 RDW 12.6 Plt Count 235 Neut % (Auto) 89.4 H Lymph % (Auto) 7.8 L [place] % (Auto) 2.5 L Eos % (Auto) 0.1 L Baso % (Auto) 0.2 Neut # (Auto) 42329 H Lymph # (Auto) 1000 L [place] # (Auto) 300 Eos # (Auto) 0 Baso # (Auto) 0 Sodium 137 Potassium 4.3 Chloride 101 Carbon Dioxide 27 BUN 16 Creatinine 0.84 Estimated GFR > 60.0 BUN/Creatinine Ratio 19.0 Glucose 204 H Calcium 10.0 Total Bilirubin 1.0 AST 27 ALT 29 Alkaline Phosphatase 119 Total Protein 8.5 H Albumin 5.0 Globulin 3.5 Albumin/Globulin Ratio 1.4 Lipase 126 SARS-CoV-2 (PCR) Negative Assessment & Plan Assessment & Plan narrative: Keisha Mclean is a 70-year-old female with a past medical history of remote Hodgkin's lymphoma, hypertension, hyperlipidemia, hypothyroidism, IBS D, and obesity who presented with abrupt onset of cramping abdominal pain and nausea vomiting since yesterday evening. CT scan performed with showed a distal SBO. Patient was admitted to medicine for further management of SBO with general surgery consultation. 1. distal SBO, acute, present on admission, likely secondary to adhesions. - CT scan on admission showing distal SBO. History of tubal ligation only in the past. Appreciate surgical consultation, Dr. Cheng to continue following. - Small bowel follow through ordered per General surgery - Continue NG tube and IV fluids. 2. HTN, chronic - will add IV anti-hypertensives if persistently hypertensive given NPO status. resume home medications when able. 3. HLD, chronic - continue home medications when able 4. Hypothyroidism, chronic - check TSH 5. Elevated blood sugar - glucose >200 on admission. Repeat FSG 126 on the floor. Will check a1c and FS q6 hours for now. 6. obesity - increases patient's risk of complications if surgery is needed for her SBO. Nutrition consultation ordered. 7. Liver cyst, chronic - recommend additional outpatient follow up. Lesion simple appearing but possibly increased in size based on radiology reading. No urgent indication for additional evaluation at this time. Code: Full, as discussed with patient. surrogate decision maker is the patient's daughter Dispo: Admit under observation status, likely discharge home if SBO resolves. DVT: SCDs in case of needed surgery. COVID-19 COVID-19 status: Negative Quality VTE Deep Vein Thrombosis/Pulmonary Embolism Present on Admission: No
--- NOTE | 2020-08-09 12:48 | PC.ADMIT ---
Addendum entered by Mat Marcial R.N. 08/09/20 14:06: NG tube discontinued. Output 100cc Original Note: [email or web address] Admission Note: Patient arrived to floor via portable stretcher and ambulated to bed. Patient complains of pain in her nose and throat. Bowel tones are hypoactive in all quadrants. Lung sounds clear, VSS. Patient denies nausea at this time. NG tube hooked to intermittent suction. Patient educated about the use of call light, bed is low and locked. Patient is not a fall risk. Bed alarm is not active. The patient,Keisha Mclean,70 y/o, was given written information regarding hospital policies, unit procedures and contact persons. Patient's smoking status: Never smoker. Vital Signs - 8 hr 08/09/20 06:06 08/09/20 06:28 08/09/20 06:39 Temperature 97.4 F L Pulse Rate 67 67 74 Respiratory Rate 20 Blood Pressure 187/78 H Pulse Oximetry 100 98 97 08/09/20 06:51 08/09/20 07:00 08/09/20 07:30 Temperature Pulse Rate 69 68 68 Respiratory Rate Blood Pressure 133/63 126/60 158/66 H Pulse Oximetry 96 97 96 08/09/20 08:02 08/09/20 08:04 08/09/20 08:30 Temperature Pulse Rate 67 60 Respiratory Rate Blood Pressure 165/74 H Pulse Oximetry 96 99 93 08/09/20 08:31 08/09/20 09:00 08/09/20 09:30 Temperature Pulse Rate 60 67 Respiratory Rate Blood Pressure 145/98 H 152/67 H Pulse Oximetry 92 97 94 08/09/20 09:35 08/09/20 09:59 08/09/20 12:01 Temperature 98.4 F 98.3 F Pulse Rate 61 60 Respiratory Rate 14 16 Blood Pressure 141/70 H 126/68 Pulse Oximetry 98 98 96
[2020-08-09] MEDS: BENZOCAINE/MENTHOL 1 LOZ PKT 1 EACH PO (13:22)
[2020-08-09] MEDS: HYDROMORPHONE 2 MG INJ IV (16:10)
--- NOTE | 2020-08-09 17:10 | PC.NURSE ---
Addendum entered by Pura Blevins R.N. 08/09/20 21:04: Pt up to BR /BSC frequently for loose stool. IVF continue as per orders. Tolerating clear liquids at this time. Call light w/in reach, pt calls appropriately for needs,. Continue w/plan of care. Original Note: Pt alert, oriented x 3 Lungs clear, SpO2 98% RA Abdomen rounded, firm, tender to touch. Tele shows NSR per ICU staff. IVF NS infusing into the KALLI @ 75cc/hr via pump w/o incidence. Med w/Dilaudid IVP for 03/19 pain w/good relief. Call light w/in reach, be alarm on for pt safety.
[2020-08-10] VITALS (9 sets, daily range): BP systolic 122–143; BP diastolic 55–84; PULSE 54–63; RESP 16–18; TEMP 36.4–36.8; O2SAT 95–98
[2020-08-10 05:37] LABS: Alanine Aminotransferase 23 IU/L (<35); Albumin 4.2 g/dL (3.5-5.0); Albumin Globulin Ratio 1.4 (1.0-2.8); Alkaline Phosphatase 76 U/L (38-126); Aspartate Aminotransferase 29 IU/L (14-36); BUN Creatinine Ratio 17.9 (6-22); Bilirubin Total 0.7 mg/dL (0.2-1.3); Blood Urea Nitrogen 19 mg/dL (7-17); Calcium 9.1 mg/dL (8.4-10.2); Carbon Dioxide 30 mmol/L (22-32); Chloride 109 mmol/L (98-107); Globulin 2.9 g/dL (1.7-4.1); Glucose 114 mg/dL (80-110); HEMOLYSIS < 15 (0-50); Magnesium 2.5 mg/dL (1.6-2.3); Potassium 4.2 mmol/L (3.4-5.1); Sodium 144 mmol/L (137-145); Total Protein 7.1 g/dL (6.3-8.2)
[2020-08-10 05:39] LABS: Hemoglobin A1C% w Est Avg Glu 5.8 % (4.0-6.0)
[2020-08-10 06:06] LABS: TSH w/ Reflex to FT4 0.44 uIU/mL (0.47-4.68)
[2020-08-10 06:50] LABS: Free T4, Direct Thyroxine 1.29 ng/dL (0.78-2.19)
[2020-08-10] MEDS: PANTOPRAZOLE 20 MG TABLET PO (06:59)
[2020-08-10] MEDS: LEVOTHYROXINE 100 MCG TABLET PO (07:44)
--- NOTE | 2020-08-10 11:26 | CM.DANOTE ---
DCP: Case received, EMR reviewed and met with patient. Introduced self and role. Was able to obtain information from patient regarding her baseline activity status prior to hospitalization. DCP assessment completed with information currently available. Patient is a 70 year old female who admitted yesterday morning to the care of the hospitalist team. PCP: Dr. Oden. Payer: confirmed: Medicare/[employer] Patient came to the hospital via family vehicle secondary to having abdominal pain, as well as vomiting. She was diagnosed with a distal small bowel obstruction. Patient has history of hodgkins lymphoma as well. Met with patient in her room. She is alert and oriented, independent at her baseline. She uses no DME, drives. She resides alone in [place], has a daughter named Jessica Villagran who lives locally, and anothr daughter in [facility]. Patient indicated, I don't usually to to the hospital unless it's something serious, and the pain was pretty bad. Patient mentioned that she drove herself here since she did not want to bother her daughter. P: DCP to continue to follow. There is no surgery planned, she could possibly go home today if she has bowel movements, or tomorrow. Xi Lawler, RN/[employer]
--- NOTE | 2020-08-10 12:52 | PC.NURSE ---
AM shift note. pt AO and receptive to care. Started shift with NS infusing at 75/hr and has since DC'ed per MD order. Tele: SR with 1st degree block and occasional vickie. Bowel tones hypoactive. ABD soft, tender, and denying pain but reporting a twinge; pain medications declined. Denying nausea with clear liquid breakfast and no concerns expressed during soft low fiber lunch. 1 loose stool at start of shift. Shower IND with set-up assist. pt daughter brought in home medication (low dose naltrexone)and I sent it down to pharmacy.
--- NOTE | 2020-08-10 15:04 | PM.DS.1 ---
History of Present Illness History of Present Illness Date Patient Seen: 08/10/20 Time Patient Seen: 15:04 Chief complaint: thinks food poisoning Narrative: Keisha Mclean is a 70-year-old female with a past medical history of remote Hodgkin's lymphoma, hypertension, hyperlipidemia, hypothyroidism, IBS D, and obesity who presented with abrupt onset of cramping abdominal pain and nausea vomiting since yesterday evening. At around 930 yesterday evening she had a right lower quadrant crampy pain that was initially mild, then migrated into her epigastrium. At around 10:30 p.m. she then had persistent abdominal pain with nausea and vomiting. She thought she had food poisoning but around 530 in the morning when she was still continuing to retch she decided to come to emergency room. She has a history of a tubal ligation in the past, but no other abdominal surgeries. She denies any recent fevers or chills. She has been struggling with vaginitis following an oral course of antibiotics which has now resolved she currently denies any vaginal discomfort and no dysuria or urinary frequency. She denies any cough, shortness of breath, chest pain, or palpitations. In the emergency room, the patient was mildly hypertensive, improved with pain control, the remainder of her vital signs were unremarkable. She was given 2 L of fluid, Zofran and a few doses of morphine. CT scan performed with showed a distal SBO in the RLQ. Patient was admitted to medicine for further management of SBO with general surgery consultation. COVID 19 testing was negative. Discharge Providers Provider Date of admission: 08/09/20 07:49 Discharge Date: 08/10/20 Primary care physician: Tereza Oden DO Discharge provider: Mickey Schroeder DO Summary Hospital Course Discharge Diagnosis: Please see hospital course by problem list noted below Hospital Course: Keisha Mclean is a 70-year-old female with a past medical history of remote Hodgkin's lymphoma, hypertension, hyperlipidemia, hypothyroidism, IBS D, and obesity who presented with abrupt onset of cramping abdominal pain and nausea vomiting since The evening prior to admission. CT scan performed with showed a distal SBO. Patient was admitted to medicine for further management of SBO with general surgery consultation. She started having bowel movements again after a small bowel follow-through. Her diet was advanced and she was tolerating a low residue diet with minimal abdominal discomfort and continued bowel movements. Was tolerating adequate intake she was discharged home the day after admission. 1. distal SBO, acute, present on admission, likely secondary to adhesions. - CT scan on admission showing distal SBO. History of tubal ligation only in the past. Appreciate surgical consultation, Dr. Cheng. - Small bowel follow through ordered per General surgery which showed passage of contrast into her large intestine. NG tube removed and diet was advanced, which she tolerated well. 2. HTN, chronic - stable to continue home medications on discharge. 3. HLD, chronic - continue home medications, no changes. 4. Hypothyroidism, chronic - TSH 0.44 with normal free t4. Continue home dosing. 5. Elevated blood sugar, pre-diabetes. - glucose >200 on admission. Repeat FSG 126 on the floor. A1c returned at 5.8%, indicative of pre-diabetes. Patient is already working on changing her diet, which was encouraged. 6. obesity - Patient is working on changing her diet and attempting to lose weight, encouraged continued commitment to this. 7. Liver cyst, chronic - recommend additional outpatient follow up. Lesion simple appearing but possibly increased in size based on radiology reading. No urgent indication for additional evaluation at this time. Status at Discharge Cognitive/behavioral status at discharge: oriented Functional status at discharge: independent ambulation Overall status at discharge: patient is back to baseline Exam Vital Signs (past 8 hours): - 08/10/20 08:35 08/10/20 09:00 08/10/20 11:20 Temperature 98.2 F 98.2 F Pulse Rate 62 54 L Respiratory Rate 17 17 Blood Pressure 122/73 127/75 Pulse Oximetry 98 97 97 08/10/20 13:00 Temperature Pulse Rate Respiratory Rate Blood Pressure Pulse Oximetry 97 Oxygen Delivery Method Room Air Oxygen Flow Rate 0 Narrative Exam Narrative: GENERAL APPEARANCE: Well developed, well nourished, in no acute distress SKIN: Inspection of the skin reveals no rashes, ulcerations or petechiae. HEENT: Normocephalic atraumatic, extraocular muscles are intact, oropharynx is clear and mucous membranes are moist, neck is supple without adenopathy NECK: Supple and symmetric. There was no thyroid enlargement, and no tenderness, or masses were felt. CHEST: Normal AP diameter and normal contour without any kyphoscoliosis. LUNGS: Auscultation of the lungs revealed no wheezes, rhonchi, or rales. CARDIOVASCULAR: There was a regular rate and rhythm without any murmurs, gallops, rubs. Peripheral pulses were 2+ and symmetric. ABDOMEN: soft but mildly distended with active bowel sounds. non-tender. MUSCULOSKELETAL: There was no tenderness or effusions noted. Muscle strength and tone were normal. EXTREMITIES: No cyanosis, clubbing or edema. NEUROLOGIC: Alert and oriented x 3. Normal affect. Strength is +5/5 in the Upper Extremities and Lower Extremities Bilaterally. Sensation to touch was normal. Objective Labs Result Diagrams: 08/09/20 06:05 08/10/20 05:00 Labs: Laboratory Results - last 24 hr 08/10/20 08/10/20 08/10/20 05:00 05:00 05:00 Sodium 144 Potassium 4.2 Chloride 109 H Carbon Dioxide 30 BUN 19 H Creatinine 1.06 H Estimated GFR 51.0 L BUN/Creatinine Ratio 17.9 Glucose 114 H Hemoglobin A1c 5.8 Calcium 9.1 Magnesium 2.5 H Total Bilirubin 0.7 AST 29 ALT 23 Alkaline Phosphatase 76 Total Protein 7.1 Albumin 4.2 Globulin 2.9 Albumin/Globulin Ratio 1.4 TSH 0.44 L Free T4 1.29 [facility] Medical History Cholelithiasis Hepatic cyst Hypothyroidism (Unknown) Irritable bowel syndrome with diarrhea Knee pain Macromastia Non Hodgkin's lymphoma Osteoarthritis (Unknown) Pelvic pain Strain of gastrocnemius muscle Travel advice encounter Vaginal irritation Surgical History H/O lateral meniscus repair of right knee History of reduction mammoplasty (~2019) History of tonsillectomy and adenoidectomy Hx of tubal ligation Social History marital status: number of children: 2 household members: none lives independently: Yes housing: house education level: college 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 Should you have return of your symptoms, do not hesitate to return to the ER. Discharge orders & Medications Prescriptions: Continued atorvastatin 20 mg tablet 20 mg PO BEDTIME Qty: 90 RF: 3 levothyroxine 100 mcg tablet 100 mcg PO DAILY Qty: 90 RF: 3 low dose naltrexone 4.5 mg 4.5 mg PO DAILY Qty: 30 RF: 3 telmisartan-amlodipine 40-5 mg tablet 1 tab PO DAILY Qty: 90 RF: 3 esomeprazole magnesium 20 mg capsule,delayed release(DR/EC) 20 mg PO DAILY RF: 0 bupropion HCl 75 mg tablet 75 mg PO BID Qty: 60 RF: 1 Follow up/Referrals: Tereza Oden DO [Primary Care Provider] - Diet/Activity/Treatments Diet: Diet as Tolerated Activity: As tolerated Visit Report/Discharge Packet Instructions: DI for Small Bowel Obstruction Discharge Data Primary Care Provider: Tereza Oden Attending Provider: Mickey Schroeder VTE Deep Vein Thrombosis/Pulmonary Embolism Present on Admission: No
--- NOTE | 2020-08-10 15:51 | PC.NURSE ---
Addendum entered by Naz Gomez R.N. 08/10/20 19:46: Pt left hospital ambulatory with daughter. Pt did not notify staff when was ready to leave. Exit observed by supervisor opening and picking, Cathy. To this lyric writer's knowledge, pt left hospital in stable condition. Addendum entered by Naz Gomez R.N. 08/10/20 19:30: Pt took diet well and rested quietly in bed following. No GI complaints. Now awake and ready to discharge to home. Discharge instructions given to pt in written and verbal format. IV removed intact. Tele dc'd. Pt's daughter, Jessica, arrives @ bedside to drive pt to home. Pt's home med retrieved from pharmacy. Pt up ad romulo dressing self in room. Original Note: Pt has been discharged to home. Paperwork presented to pt who is quietly resting in bed. Pt states has discussed with Dr. Schroeder and agreed to allow pt to stay until 1999 this evening when pt's daughter will arrive. Pt reports desire to eat evening meal and monitor prior to discharging to home.
--- NOTE | 2020-08-17 16:56 | PC.NURSE ---
Late Entry; NS infusion initiated at 07:44 complete at 08:14.
== END 2020-08-10 19:30 | disposition home or self-care (01) ==
LOC: ED 07:33 → AC 08:19
PROVIDERS: Emergency Medicine; Admitting Provider Internal Medicine; Emergency Provider Emergency Medicine; PCP Family Medicine; Referring Provider Emergency Medicine; Visit Provider Internal Medicine
DX: K56.609 Unspecified intestinal obstruction, unspecified as to partial versus complete obstruction (principal); I10 Essential (primary) hypertension; E78.5 Hyperlipidemia, unspecified; K21.9 Gastro-esophageal reflux disease without esophagitis; E06.3 Autoimmune thyroiditis; E66.9 Obesity, unspecified; K76.89 Other specified diseases of liver; K58.0 Irritable bowel syndrome with diarrhea; Z20.822 Contact with and (suspected) exposure to COVID-19
CPT/HCPCS: 36415; 74018; 74177; 74250; 80053; 82962; 83036; 83690; 83735; 84439; 84443; 85025; 87635; 93005; 96374; 96375; 96376; 99284; C9803; G0378; J1170; J1885; J2060; J2270; J2405; Q9967

== ENCOUNTER → 2020-09-02 10:36 | Outpatient (CLI) | payer MEDICARE, OTHER, SELFPAY ==
[2020-08-09 09:54] VITALS: BMI 32.4
--- NOTE | 2020-09-02 10:38 | DI.US.S_ITS ---
PROCEDURE: US PELVIC COMPLETE INDICATIONS: PELVIC PAIN, ADHESIONS, OVARIAN CYST - RULE OUT TORSION TECHNIQUE: Real-time scanning was performed of the pelvic organs, with image documentation. Additional endovaginal scanning was necessary due to incomplete visualization of the adnexal and endometrial structures by transabdominal scanning. COMPARISON: [facility], CT, CT ABDOMEN PELVIS W CON, 08/09/2020, 6:16. FINDINGS: Uterus: Uterus is anteverted and normal in size at 5.9 x 2.9 x 2.5 cm. Myometrium is heterogeneous. The endometrium measures 3 mm in combined thickness. Small nabothian cysts. Ovaries: Not seen. Other: No obvious free fluid. IMPRESSION: 1. Ovaries are not seen. Ovarian torsion cannot be excluded. If clinically indicated cross-sectional imaging (pelvic MRI with IV contrast or CT) could be performed for further evaluation. 2. Endometrium measures 3 mm. 3. No obvious free fluid seen. Dictated by: Liang Landaverde M.D. on 09/02/2020 at 12:01 Approved by: Liang Landaverde M.D. on 09/02/2020 at 12:11
== END ==
PROVIDERS: PCP Family Medicine; Referring Provider Family Medicine; Visit Provider Family Medicine
DX: R10.2 Pelvic and perineal pain (principal); K56.609 Unspecified intestinal obstruction, unspecified as to partial versus complete obstruction; R10.31 Right lower quadrant pain
CPT/HCPCS: 76830; 76856

== ENCOUNTER → 2020-10-12 08:48 | Outpatient (CLI) | payer MEDICARE, OTHER, SELFPAY ==
[2020-08-09 09:54] VITALS: BMI 32.4
[2020-10-12 10:19] LABS: Free T3, Triiodothyronine Free 3.11 pg/mL (2.77-5.27)
[2020-10-12 10:32] LABS: Thyroid Stimulating Hormone 2.05 uIU/mL (0.47-4.68)
[2020-10-13 18:36] LABS: Anti Thyroglobulin Antibody 592.7 IU/mL (0.0-0.9); Thyroid Peroxidase Antibodies 448 IU/mL (0-34)
== END ==
PROVIDERS: PCP Family Medicine; Referring Provider Family Medicine; Visit Provider Family Medicine
DX: E03.8 Other specified hypothyroidism (principal); E06.3 Autoimmune thyroiditis
CPT/HCPCS: 36415; 84439; 84443; 84481; 86376; 86800

== ENCOUNTER → 2020-12-06 14:39 | Outpatient (CLI) | payer MEDICARE, OTHER, SELFPAY ==
[2020-08-09 09:54] VITALS: BMI 32.4
[2020-12-06 16:11] LABS: Free T3, Triiodothyronine Free 3.94 pg/mL (2.77-5.27); Free T4, Direct Thyroxine 1.21 ng/dL (0.78-2.19)
[2020-12-06 16:24] LABS: Thyroid Stimulating Hormone 0.683 uIU/mL (0.47-4.68)
[2020-12-07 06:18] LABS: Thyroid Peroxidase Antibodies 414 IU/mL (0-34)
[2020-12-07 20:50] LABS: Anti Thyroglobulin Antibody 690.1 IU/mL (0.0-0.9)
[2020-12-09 16:07] LABS: Triiodothyronine T3 Reverse 21.5 ng/dL (9.2-24.1)
== END ==
PROVIDERS: PCP Family Medicine; Referring Provider Family Medicine; Visit Provider Family Medicine
DX: E03.8 Other specified hypothyroidism (principal); E06.3 Autoimmune thyroiditis
CPT/HCPCS: 36415; 84439; 84443; 84481; 84482; 86376; 86800

== ENCOUNTER → 2021-01-14 09:55 | Outpatient (CLI) | payer MEDICARE, OTHER, SELFPAY ==
[2020-08-09 09:54] VITALS: BMI 32.4
[2021-01-14 11:16] LABS: Cholesterol 272 mg/dL (140-199); HDL Cholesterol 70 mg/dL (40-60); LDL Cholesterol Calculated 176 mg/dL (<100); Triglycerides 128 mg/dL (35-150)
== END ==
PROVIDERS: PCP Family Medicine; Referring Provider Family Medicine; Visit Provider Family Medicine
DX: E78.2 Mixed hyperlipidemia (principal)
CPT/HCPCS: 36415; 80061

== ENCOUNTER → 2021-02-25 11:04 | Outpatient (CLI) | payer MEDICARE, OTHER, SELFPAY ==
[2020-08-09 09:54] VITALS: BMI 32.4
[2021-02-25 12:17] LABS: Cholesterol 157 mg/dL (140-199); HDL Cholesterol 56 mg/dL (40-60); LDL Cholesterol Calculated 86 mg/dL (<100); Triglycerides 76 mg/dL (35-150)
[2021-03-02 16:13] LABS: Triiodothyronine T3 Reverse 22.8 ng/dL (9.2-24.1)
== END ==
PROVIDERS: PCP Family Medicine; Referring Provider Family Medicine; Visit Provider Family Medicine
DX: E03.8 Other specified hypothyroidism (principal); E06.3 Autoimmune thyroiditis
CPT/HCPCS: 36415; 80061; 84482

== ENCOUNTER → 2021-03-01 16:36 | Outpatient (CLI) | payer MEDICARE, OTHER, SELFPAY ==
[2020-08-09 09:54] VITALS: BMI 32.4
== END ==
PROVIDERS: PCP Family Medicine; Referring Provider Family Medicine; Visit Provider Family Medicine
DX: Z91.89 Other specified personal risk factors, not elsewhere classified (principal)
CPT/HCPCS: 36415; 86617

== ENCOUNTER → 2021-04-14 10:44 | Outpatient (CLI) | payer MEDICARE, OTHER, SELFPAY ==
[2020-08-09 09:54] VITALS: BMI 32.4
--- NOTE | 2021-04-14 | DI.MG.S_ITS ---
BILATERAL DIGITAL SCREENING MAMMOGRAM 3D/2D WITH CAD: 04/14/2021 CLINICAL: Routine screening. Comparison is made to exams dated: 03/30/2020 mammogram, 02/24/2018 mammogram, and 02/19/2017 mammogram - [facility]. The tissue of both breasts is heterogeneously dense. This may lower the sensitivity of mammography. Current study was also evaluated with a Computer Aided Detection (CAD) system. No significant masses, calcifications, or other findings are seen in either breast. There has been no significant interval change. IMPRESSION: NEGATIVE There is no mammographic evidence of malignancy. A 1 year screening mammogram is recommended. This exam was interpreted at Station ID: [id number]. NOTE: For mammograms, a report in lay terms will be sent to the patient. Approximately 15% of breast malignancies will not be visualized mammographically. In the management of a palpable breast mass, a negative mammogram must not discourage biopsy of a clinically suspicious lesion. Electronically Signed By: Yvon Rajan acr/penrad:04/14/2021 11:10:09 letter sent: Normal Exam ACR BI-RADS Category 1: Negative 3341F
== END ==
PROVIDERS: PCP Family Medicine; Referring Provider Family Medicine; Visit Provider Family Medicine
DX: Z12.31 Encounter for screening mammogram for malignant neoplasm of breast (principal)
CPT/HCPCS: 77063; 77067

== ENCOUNTER → 2021-07-19 11:44 | Outpatient (CLI) | payer MEDICARE, OTHER, SELFPAY ==
[2020-08-09 09:54] VITALS: BMI 32.4
--- NOTE | 2021-07-19 11:46 | DI.RAD.S_ITS ---
PROCEDURE: XR ELBOW RT MIN 3V INDICATIONS: Right elbow pain with ulnar distriution of pain/numbness TECHNIQUE: 3 views of the elbow were acquired. COMPARISON: None. FINDINGS: Bones: No fractures or dislocations. No suspicious bony lesions. Soft tissues: No elbow joint effusion. No suspicious soft tissue calcifications. IMPRESSION: No acute fracture. No osseous lesion. If symptoms and/or clinical suspicion for pathology persist, further assessment with repeat, or advanced imaging (e.g., CT, MRI, or bone scan) may be helpful for further assessment. Dictated by: Cooper Zavala M.D. on 07/19/2021 at 13:53 Approved by: Cooper Zavala M.D. on 07/19/2021 at 13:53
== END ==
PROVIDERS: PCP Family Medicine; Referring Provider Family Medicine; Visit Provider Family Medicine
DX: M25.521 Pain in right elbow (principal)
CPT/HCPCS: 73080

== ENCOUNTER → 2021-11-10 09:43 | Outpatient (CLI) | payer MEDICARE, OTHER, SELFPAY ==
[2020-08-09 09:54] VITALS: BMI 32.4
[2021-11-10 10:56] LABS: Add Manual Diff / Slide Review NO; Basophils Absolute Auto 0 /uL (0-100); Basophils Percent Auto 0.3 % (0-2); Eosinophils Absolute Auto 200 /uL (0-450); Eosinophils Percent Auto 3.7 % (2-4); Hematocrit 39.5 % (36-46); Hemoglobin 13.8 g/dL (12.0-16.0); Lymphocytes Absolute Auto 1000 /uL (1100-4500); Lymphocytes Percent Auto 20.8 % (25-40); Mean Corpuscular HGB Conc 34.9 % (30-36); Mean Corpuscular Hemoglobin 30.1 PG (26-34); Mean Corpuscular Volume 86.3 fL (80-100); Monocytes Absolute Auto 400 /uL (0-900); Monocytes Percent Auto 7.3 % (3-14); Neutrophils Absolute Auto 3400 /uL (1500-7000); Neutrophils Percent Auto 67.9 % (50-75); Platelet Count 195 X10^3/uL (150-400); Red Blood Cell Count 4.58 X10^6/uL (4.0-5.2)
[2021-11-10 11:07] LABS: Alanine Aminotransferase 31 IU/L (<35); Albumin 4.4 g/dL (3.5-5.0); Albumin Globulin Ratio 1.5 (1.0-2.8); Alkaline Phosphatase 90 U/L (38-126); Aspartate Aminotransferase 26 IU/L (14-36); BUN Creatinine Ratio 14.9 (6-22); Bilirubin Total 0.6 mg/dL (0.2-1.3); Blood Urea Nitrogen 11 mg/dL (7-17); Carbon Dioxide 28 mmol/L (22-32); Chloride 105 mmol/L (98-107); Cholesterol 174 mg/dL (140-199); Estimated Glomerular Filt Rate > 60 mL/min (>60); Glucose 123 mg/dL (80-110); HDL Cholesterol 65 mg/dL (40-60); HEMOLYSIS < 15 (0-50); LDL Cholesterol Calculated 93 mg/dL (<100); Sodium 139 mmol/L (137-145); Total Protein 7.4 g/dL (6.3-8.2); Triglycerides 79 mg/dL (35-150)
[2021-11-10 12:15] LABS: Free T3, Triiodothyronine Free 5.47 pg/mL (2.77-5.27); Free T4, Direct Thyroxine 1.46 ng/dL (0.78-2.19)
[2021-11-10 12:29] LABS: Thyroid Stimulating Hormone 0.253 uIU/mL (0.47-4.68)
[2021-11-11 20:46] LABS: Anti Thyroglobulin Antibody 732.8 IU/mL (0.0-0.9); Thyroid Peroxidase Antibodies 252 IU/mL (0-34)
== END ==
PROVIDERS: PCP Family Medicine; Referring Provider Family Medicine; Visit Provider Family Medicine
DX: E03.8 Other specified hypothyroidism (principal); E06.3 Autoimmune thyroiditis; E78.2 Mixed hyperlipidemia; I10 Essential (primary) hypertension; Z85.79 Personal history of other malignant neoplasms of lymphoid, hematopoietic and related tissues
CPT/HCPCS: 36415; 80053; 80061; 84439; 84443; 84481; 85025; 86376; 86800

== ENCOUNTER → 2021-12-22 12:02 | Outpatient (CLI) | payer MEDICARE, OTHER, SELFPAY ==
[2020-08-09 09:54] VITALS: BMI 32.4
[2021-12-22 12:47] LABS: Hemoglobin A1C% w Est Avg Glu 5.8 % (4.0-6.0)
[2021-12-23 19:09] LABS: Anti Thyroglobulin Antibody 867.2 IU/mL (0.0-0.9); Thyroid Peroxidase Antibodies 301 IU/mL (0-34)
== END ==
PROVIDERS: PCP Family Medicine; Referring Provider Family Medicine; Visit Provider Family Medicine
DX: E03.8 Other specified hypothyroidism (principal); R73.01 Impaired fasting glucose; E06.3 Autoimmune thyroiditis
CPT/HCPCS: 36415; 83036; 86376; 86800

== ENCOUNTER → 2022-01-18 11:39 | Outpatient (CLI) | payer MEDICARE, OTHER, SELFPAY ==
[2020-08-09 09:54] VITALS: BMI 32.4
[2022-01-18 15:41] LABS: Free T3, Triiodothyronine Free 4.64 pg/mL (2.77-5.27); Free T4, Direct Thyroxine 1.88 ng/dL (0.78-2.19)
[2022-01-18 15:59] LABS: Thyroid Stimulating Hormone < 0.015 uIU/mL (0.47-4.68)
== END ==
PROVIDERS: PCP Family Medicine; Referring Provider Family Medicine; Visit Provider Family Medicine
DX: E03.8 Other specified hypothyroidism (principal); E06.3 Autoimmune thyroiditis
CPT/HCPCS: 36415; 84439; 84443; 84481

== ENCOUNTER → 2022-05-02 13:01 | Outpatient (CLI) | payer MEDICARE, OTHER, SELFPAY ==
[2020-08-09 09:54] VITALS: BMI 32.4
--- NOTE | 2022-05-02 | DI.MG.S_ITS ---
BILATERAL DIGITAL SCREENING MAMMOGRAM 3D/2D WITH CAD: 05/02/2022 CLINICAL: Routine screening. Comparison is made to exams dated: 04/14/2021 mammogram, 03/30/2020 mammogram, and 02/24/2018 mammogram - [facility]. Both breasts are heterogeneously dense, which may obscure small masses (category c / 51-75% glandular tissue). Current study was also evaluated with a Computer Aided Detection (CAD) system. No significant masses, calcifications, or other findings are seen in either breast. There has been no significant interval change. IMPRESSION: NEGATIVE There is no mammographic evidence of malignancy. A 1 year screening mammogram is recommended. Based on the Tyrer Cuzick model (a risk assessment model) the patient's lifetime risk is 6.6% and her 10 year risk is 5.4%. According to the ACR, ACS, and NCCN guidelines, an annual breast MRI exam along with mammogram is recommended if the patient's lifetime risk is 20% or greater. This exam was interpreted at Station ID: [id number]. NOTE: For mammograms, a report in lay terms will be sent to the patient. Approximately 15% of breast malignancies will not be visualized mammographically. In the management of a palpable breast mass, a negative mammogram must not discourage biopsy of a clinically suspicious lesion. Electronically Signed By: Marie matt/noelle:05/02/2022 14:57:05 letter sent: Normal Exam ACR BI-RADS Category 1: Negative 3341F
== END ==
PROVIDERS: PCP Family Medicine; Referring Provider Family Medicine; Visit Provider Family Medicine
DX: Z12.31 Encounter for screening mammogram for malignant neoplasm of breast (principal)
CPT/HCPCS: 77063; 77067

== ENCOUNTER → 2022-11-07 11:12 | Outpatient (CLI) | payer MEDICARE, OTHER, SELFPAY ==
[2022-10-09 10:42] VITALS: BMI 32.4
--- NOTE | 2022-11-07 11:14 | DI.RAD.S_ITS ---
Bone Density Report Name: RADHA RAYA Age: 72 Sex: Female Ethnicity: White Date of : 1950 Indication: postmenopausal; screening for osteoporosis; Referring Provider: DAWSON TORRES Study: Bone densitometry was performed. Exam Date: November 07, 2022 Accession number: [id number] Bone Density: Region BMD T-score Z-score Classification AP Spine(L1-L4) 0.958 -0.8 1.5 Normal Femoral Neck (Left) 0.661 -1.7 0.4 Osteopenia Total Hip (Left) 0.843 -0.8 0.9 Normal Femoral Neck (Right) 0.685 -1.5 0.6 Osteopenia Total Hip (Right) 0.846 -0.8 1.0 Normal Total Hip Mean 0.845 -0.8 1.0 Normal World Health Organization criteria for BMD impression classify patients as: Normal (T-score at or above -1.0), Osteopenia (T-score between -1.0 and -2.5), or Osteoporosis (T-score at or below -2.5). 10-year Fracture Risk(1): Major Osteoporotic Fracture 11% Hip Fracture 2.2% Reported Risk Factors: [place] (), Neck BMD=0.661, BMI=31.3 (1) FRAX(R) Version 3.08. Fracture probability calculated for an untreated patient. Fracture probability may be lower if the patient has received treatment. Previous Exams: -- Region Exam Age BMD T-score BMD Change BMD Change Date g/cm2 vs Baseline vs Previous -- AP Spine (L1-L4) 11/07/2022 72 0.958 -0.8 -0.026 (-2.7%)# -0.026 (-2.7%)# 02/24/2018 67 0.984 -0.6 Total Hip(Left) 11/07/2022 72 0.843 -0.8 -0.033 (-3.8%)# -0.033 (-3.8%)# 02/24/2018 67 0.877 -0.5 Total Hip(Right) 11/07/2022 72 0.846 -0.8 -0.030 (-3.5%)# -0.030 (-3.5%)# 02/24/2018 67 0.876 -0.5 -- *Denotes significance at 95% confidence level, LSC for AP Spine = 0.022 g/cm2, LSC for Total Hip = 0.027 g/cm2 # Denotes dissimilar scan types or analysis methods Impression: The patient has low bone mass, based on the Left Femoral Neck T-score. The patient has an estimated ten-year risk of hip fracture of 2.2% and an estimated ten-year risk of major fracture of 11%, based on the WHO FRAX algorithm. No significant bone loss was observed. Discussion: BONE DENSITY IS LOW AT ONE OR MORE SKELETAL SITES. This patient's lowest T-score is low at one or more skeletal sites. It meets the World Health Organization's (WHO) criteria for low bone mass (T-score between -1.0 and -2.5). The patient's 10-year risk of fracture as calculated by FRAX is less than the threshold where pharmacological therapy is recommended by the National Osteoporosis Foundation (NOF). However, all treatment decisions require clinical judgment and consideration of individual patient factors, including patient preferences, comorbidities, previous drug use, risk factors not captured in the FRAX model (e.g., frailty, falls, vitamin D deficiency, increased bone turnover, interval significant decline in bone density) and possible under or overestimation of fracture risk by FRAX. The patient should follow a healthful lifestyle (good nutrition with adequate calcium and vitamin D, and appropriate weight-bearing exercise). Follow-Up: Consider repeating this study in 2 to 3 years to reassess this patient's status, or sooner if there is some new clinical indication. Reported by: KOFI SANZ M.D. on 11/07/2022 11:41:00 AM.
== END ==
PROVIDERS: PCP Family Medicine; Referring Provider Family Medicine; Visit Provider Family Medicine
DX: M85.89 Other specified disorders of bone density and structure, multiple sites (principal); M85.88 Other specified disorders of bone density and structure, other site
CPT/HCPCS: 77080

== ENCOUNTER → 2022-11-23 08:06 | Outpatient (CLI) | payer MEDICARE, OTHER, SELFPAY ==
[2022-10-09 10:42] VITALS: BMI 32.4
[2022-11-23 08:53] LABS: Add Manual Diff / Slide Review NO; Basophils Absolute Auto 0 /uL (0-100); Basophils Percent Auto 0.2 % (0-2); Eosinophils Absolute Auto 200 /uL (0-450); Eosinophils Percent Auto 2.8 % (2-4); Hematocrit 38.6 % (36-46); Hemoglobin 13.4 g/dL (12.0-16.0); Lymphocytes Absolute Auto 1200 /uL (1100-4500); Lymphocytes Percent Auto 18.1 % (25-40); Mean Corpuscular HGB Conc 34.6 % (30-36); Mean Corpuscular Hemoglobin 29.9 PG (26-34); Mean Corpuscular Volume 86.4 fL (80-100); Monocytes Absolute Auto 500 /uL (0-900); Monocytes Percent Auto 7.4 % (3-14); Neutrophils Absolute Auto 4700 /uL (1500-7000); Neutrophils Percent Auto 71.5 % (50-75); Platelet Count 195 X10^3/uL (150-400); Red Blood Cell Count 4.47 X10^6/uL (4.0-5.2); Red Cell Distribution Width 13.6 % (11.6-14.8); White Blood Cell Count 6.6 X10^3/uL (4.5-11.0)
[2022-11-23 09:17] LABS: Alanine Aminotransferase 23 IU/L (<35); Albumin 4.1 g/dL (3.5-5.0); Albumin Globulin Ratio 1.4 (1.0-2.8); Alkaline Phosphatase 84 U/L (38-126); Aspartate Aminotransferase 21 IU/L (14-36); BUN Creatinine Ratio 17.9 (6-22); Bilirubin Total 0.9 mg/dL (0.2-1.3); Blood Urea Nitrogen 15 mg/dL (7-17); Calcium 8.9 mg/dL (8.4-10.2); Carbon Dioxide 28 mmol/L (22-32); Chloride 105 mmol/L (98-107); Cholesterol 172 mg/dL (140-199); Estimated Glomerular Filt Rate > 60 mL/min (>60); Glucose 97 mg/dL (80-110); HDL Cholesterol 52 mg/dL (40-60); HEMOLYSIS < 15 (0-50); LDL Cholesterol Calculated 96 mg/dL (<100); Potassium 3.9 mmol/L (3.4-5.1); Sodium 140 mmol/L (137-145); Total Protein 7.1 g/dL (6.3-8.2); Triglycerides 119 mg/dL (35-150)
[2022-11-23 09:45] LABS: Free T3, Triiodothyronine Free 3.69 pg/mL (2.77-5.27); Free T4, Direct Thyroxine 1.09 ng/dL (0.78-2.19)
[2022-11-23 09:58] LABS: Thyroid Stimulating Hormone 0.937 uIU/mL (0.47-4.68)
[2022-11-24 07:15] LABS: Thyroid Peroxidase Antibodies 349 IU/mL (0-34)
== END ==
PROVIDERS: PCP Family Medicine; Referring Provider Family Medicine; Visit Provider Family Medicine
DX: E03.8 Other specified hypothyroidism (principal); E06.3 Autoimmune thyroiditis; E78.2 Mixed hyperlipidemia; I10 Essential (primary) hypertension; R53.83 Other fatigue; R63.5 Abnormal weight gain; Z85.79 Personal history of other malignant neoplasms of lymphoid, hematopoietic and related tissues; R73.01 Impaired fasting glucose
CPT/HCPCS: 36415; 80053; 80061; 84439; 84443; 84481; 85025; 86376

== ENCOUNTER → 2023-05-06 11:29 | Outpatient (CLI) | payer MEDICARE, OTHER, SELFPAY ==
[2022-10-09 10:42] VITALS: BMI 32.4
--- NOTE | 2023-05-06 | DI.MG.S_ITS ---
BILATERAL DIGITAL SCREENING MAMMOGRAM 3D/2D WITH CAD: 05/06/2023 CLINICAL: Routine screening. Comparison is made to exams dated: 05/02/2022 mammogram, 04/14/2021 mammogram, and 03/30/2020 mammogram - [facility]. Both breasts are heterogeneously dense, which may obscure small masses (category c / 51-75% glandular tissue). Current study was also evaluated with a Computer Aided Detection (CAD) system. No significant masses, calcifications, or other findings are seen in either breast. There has been no significant interval change. IMPRESSION: NEGATIVE There is no mammographic evidence of malignancy. A 1 year screening mammogram is recommended. Based on the Tyrer Cuzick model (a risk assessment model) the patient's lifetime risk is 6.1% and her 10 year risk is 5.5%. According to the ACR, ACS, and NCCN guidelines, an annual breast MRI exam along with mammogram is recommended if the patient's lifetime risk is 20% or greater. This exam was interpreted at Station ID: [id number]. NOTE: For mammograms, a report in lay terms will be sent to the patient. Approximately 15% of breast malignancies will not be visualized mammographically. In the management of a palpable breast mass, a negative mammogram must not discourage biopsy of a clinically suspicious lesion. Electronically Signed By: Jong villarreal/noelle:05/06/2023 18:09:18 letter sent: Normal Exam ACR BI-RADS Category 1: Negative 3341F
== END ==
PROVIDERS: PCP Family Medicine; Referring Provider Family Medicine; Visit Provider Family Medicine
DX: Z12.31 Encounter for screening mammogram for malignant neoplasm of breast (principal)
CPT/HCPCS: 77063; 77067

== ENCOUNTER → 2024-01-23 14:52 | Outpatient (CLI) | payer MEDICARE, OTHER, SELFPAY ==
[2023-11-08 15:41] VITALS: BMI 32.4
== END ==
PROVIDERS: PCP Family Medicine; Referring Provider Nurse Practitioner Family; Visit Provider Nurse Practitioner Family
DX: R30.0 Dysuria (principal)
CPT/HCPCS: 87077; 87086

== ENCOUNTER → 2024-02-26 10:48 | Outpatient (CLI) | payer MEDICARE, OTHER, SELFPAY ==
[2023-11-08 15:41] VITALS: BMI 32.4
[2024-02-26 12:50] LABS: Appearance Urine UA Cloudy; Color Urine UA Yellow; pH Urine UA 6.5 (4.5-8.0)
[2024-02-26 12:51] LABS: Bacteria Urine Many (>30); Bilirubin Urine UA Negative (NEGATIVE); Culture Indicated Urine Specimen Cultured; Glucose Urine UA NEGATIVE (Negative); Ketones Urine UA NEGATIVE (NEGATIVE); Leukocyte Esterase Urine UA 3+ (NEGATIVE); Nitrite Urine UA POSITIVE (Negative); Occult Blood Urine UA 2+ (Negative); Protein Urine UA 1+ (Negative); RBC Urine 5-10/HPF (0-5/HPF); Specific Gravity Urine UA 1.015 (1.000-1.035); Squamous Epithelial Cell Urine 1-5 /HPF (0-5/HPF); Urine Volume 10mL (spun); Urobilinogen Urine UA 0.2 E.U./dL (0.2); WBC Urine >100/HPF (0-5/HPF)
== END ==
PROVIDERS: PCP Family Medicine; Referring Provider Family Medicine; Visit Provider Family Medicine
DX: R30.0 Dysuria (principal); R82.90 Unspecified abnormal findings in urine
CPT/HCPCS: 81001; 87077; 87086; 87186

== ENCOUNTER → 2024-03-03 12:02 | Outpatient (CLI) | payer MEDICARE, OTHER, SELFPAY ==
[2023-11-08 15:41] VITALS: BMI 32.4
== END ==
PROVIDERS: PCP Family Medicine; Visit Provider Urology
DX: R39.9 Unspecified symptoms and signs involving the genitourinary system (principal)
CPT/HCPCS: 87086

== ENCOUNTER → 2024-03-18 12:11 | Outpatient (CLI) | payer MEDICARE, OTHER, SELFPAY ==
[2023-11-08 15:41] VITALS: BMI 32.4
== END ==
PROVIDERS: PCP Family Medicine; Referring Provider Family Medicine; Visit Provider Family Medicine
DX: R53.83 Other fatigue (principal); E03.9 Hypothyroidism, unspecified
CPT/HCPCS: 36415; 84443

== ENCOUNTER → 2024-03-25 10:46 | Outpatient (CLI) | payer MEDICARE, OTHER, SELFPAY ==
[2023-11-08 15:41] VITALS: BMI 32.4
[2024-03-25 12:59] LABS: Ferritin 139 ng/mL (11-264)
[2024-03-25 14:40] LABS: HEMOLYSIS < 15 (0-50); Transferrin 245 mg/dL (206-381)
[2024-03-25 17:30] LABS: Iron 72 ug/dL (37-170); Percent Iron Saturation 24 % (15-50); Total Iron Binding Capacity 306 ug/dL (265-497)
== END ==
LOC: LAB 10:48
PROVIDERS: PCP Family Medicine; Referring Provider Internal Medicine Sleep Medicine; Visit Provider Internal Medicine Sleep Medicine
DX: G47.30 Sleep apnea, unspecified (principal); G25.81 Restless legs syndrome; E83.10 Disorder of iron metabolism, unspecified
CPT/HCPCS: 36415; 82728; 83540; 83550

== ENCOUNTER → 2024-04-30 16:05 | Outpatient (CLI) | payer MEDICARE, OTHER, SELFPAY ==
[2023-11-08 15:41] VITALS: BMI 32.4
[2024-04-30 17:32] LABS: TSH w/ Reflex to FT4 5.27 uIU/mL (0.47-4.68)
[2024-04-30 18:32] LABS: Free T4, Direct Thyroxine 0.72 ng/dL (0.78-2.19)
== END ==
LOC: LAB 16:09
PROVIDERS: PCP Family Medicine; Referring Provider Family Medicine; Visit Provider Family Medicine
DX: E03.8 Other specified hypothyroidism (principal)
CPT/HCPCS: 36415; 84439; 84443

== ENCOUNTER → 2024-05-11 09:40 | Outpatient (CLI) | payer MEDICARE, OTHER, SELFPAY ==
[2023-11-08 15:41] VITALS: BMI 32.4
[2024-05-11 10:55] LABS: Cholesterol 203 mg/dL (140-199); HDL Cholesterol 98 mg/dL (40-60); LDL Cholesterol Calculated 91 mg/dL (<100); Triglycerides 71 mg/dL (35-150)
== END ==
PROVIDERS: PCP Family Medicine; Referring Provider Family Medicine; Visit Provider Family Medicine
DX: E78.2 Mixed hyperlipidemia (principal)
CPT/HCPCS: 36415; 80061

== ENCOUNTER → 2024-05-11 17:41 | Outpatient (CLI) | payer MEDICARE, OTHER, SELFPAY ==
[2023-11-08 15:41] VITALS: BMI 32.4
--- NOTE | 2024-05-11 17:42 | DI.MG.S_ITS ---
BILATERAL DIGITAL SCREENING MAMMOGRAM 3D/2D WITH CAD: 05/11/2024 CLINICAL: Routine screening. Comparison is made to exams dated: 05/06/2023 mammogram, 05/02/2022 mammogram, 04/14/2021 mammogram, and 03/30/[address] - [facility]. The breasts are heterogeneously dense, which may obscure small masses (category c / 51-75% glandular tissue). Current study was also evaluated with a Computer Aided Detection (CAD) system. No significant masses, calcifications, or other findings are seen in either breast. There has been no significant interval change. IMPRESSION: NEGATIVE There is no mammographic evidence of malignancy. A 1 year screening mammogram is recommended. Based on the Tyrer Cuzick model (a risk assessment model) the patient's lifetime risk is 5.7% and her 10 year risk is 5.7%. According to the ACR, ACS, and NCCN guidelines, an annual breast MRI exam along with mammogram is recommended if the patient's lifetime risk is 20% or greater. This exam was interpreted at Station ID: [id number]. NOTE: For mammograms, a report in lay terms will be sent to the patient. Approximately 15% of breast malignancies will not be visualized mammographically. In the management of a palpable breast mass, a negative mammogram must not discourage biopsy of a clinically suspicious lesion. Electronically Signed By: Liang cheng/noelle:05/12/2024 09:25:39 letter sent: Normal Exam ACR BI-RADS Category 1: Negative
== END ==
PROVIDERS: PCP Family Medicine; Referring Provider Family Medicine; Visit Provider Family Medicine
DX: Z12.31 Encounter for screening mammogram for malignant neoplasm of breast (principal); R92.333 Mammographic heterogeneous density, bilateral breasts; E78.2 Mixed hyperlipidemia
CPT/HCPCS: 36415; 77063; 77067; 80061

== ENCOUNTER 2024-06-14 21:30 | Emergency (ER) | payer MEDICARE, OTHER, SELFPAY ==
[2023-11-08 15:41] VITALS: BMI 32.4
[2024-06-14 21:37] VITALS: BP 149/68; PULSE 68; RESP 17; TEMP 36.4; O2SAT 98; BMI 28.6
--- NOTE | 2024-06-15 00:19 | ED.EXTPRO ---
HPI - Extremity Problem General Chief complaint: Extremity Problem,Nontraumatic Stated complaint: Right Leg weakness Source: patient Mode of arrival: Wheelchair History of Present Illness HPI Narrative: Patient left without being seen by provider Related Data Previous Rx's Medication Instructions Recorded low dose naltrexone 4.5 mg PO DAILY #90 ea 07/31/22 gabapentin 100 mg capsule 100 mg PO BEDTIME #90 caps 10/17/23 bupropion HCl 150 mg 24 hr tablet, See Rx Instructions .Route 01/29/24 extended release .COMPLEX #90 tabs levothyroxine 50 mcg tablet 50 mcg PO DAILY #90 tabs 03/20/24 telmisartan 80 mg-amlodipine 10 mg 1 tab PO DAILY #90 tabs 04/10/24 tablet estradiol 0.01% (0.1 mg/gram) 1 g vaginal 2XW #42.5 grams 05/18/24 vaginal cream (Estrace) liothyronine 5 mcg tablet 5 mcg PO DAILY #90 tabs 05/18/24 pravastatin 40 mg tablet 40 mg PO DAILY #60 tabs 05/18/24 tirzepatide 15 mg/0.5 mL 15 mg (0.5 mL) SUBCUT QWEEK #2 mL 05/18/24 subcutaneous pen injector Allergies Allergy/AdvReac Type Severity Reaction Status Date / Time levothyroxine sodium Allergy Intermediate rash Verified 05/18/24 11:27 [From Tirosint] adhesive Allergy Mild Redness Verified 05/18/24 11:27 and itching silver Allergy Mild Rash Verified 05/18/24 11:27 [From Tegaderm AG Mesh] Patient History Medical History (Updated 06/14/24 @ 21:50 by Arminda Bush RN) RLQ abdominal pain Sleep disturbance Marginal zone lymphoma Osteopenia Intestinal bacterial overgrowth Weight gain, abnormal Nocturia more than twice per night Urge incontinence of urine Anxiety about health Fatigue Encounter for weight loss counseling Chronic pain of right heel Body posture problem Muscle spasm Acute neck pain Functional fecal incontinence Vaginal irritation Pelvic pain Irritable bowel syndrome with diarrhea Cholelithiasis Hepatic cyst Knee pain Strain of gastrocnemius muscle Travel advice encounter Macromastia Osteoarthritis (Unknown) Hypothyroidism (Unknown) Non Hodgkin's lymphoma Surgical History History of reduction mammoplasty (~2019) H/O lateral meniscus repair of right knee Hx of tubal ligation History of tonsillectomy and adenoidectomy Family History Mother Hypertension Thyroid disease Stroke Father Congestive heart failure CAD (coronary artery disease) Social History marital status: number of children: 2 household members: none lives independently: Yes housing: house education level: college occupational status: other Smoking Status: Never smoker second hand exposure: No alcohol intake: current substance use type: does not use Smoking Status: Never smoker alcohol intake frequency: 0-2 drinks per day Alcohol type: wine Exam Initial Vital Signs Initial Vital Signs: Vital Signs Temperature 97.5 F L 06/14/24 21:37 Pulse Rate 68 06/14/24 21:37 Respiratory Rate 17 06/14/24 21:37 Blood Pressure 149/68 H 06/14/24 21:37 Pulse Oximetry 98 06/14/24 21:37 Oxygen Delivery Method Room Air 06/14/24 21:37 Course Vital Signs Vital signs: Vital Signs - 8 hr 06/14/24 21:37 Temperature 97.5 F L Pulse Rate 68 Respiratory Rate 17 Blood Pressure 149/68 H Pulse Oximetry 98 Oxygen Delivery Method Room Air Discharge Plan Departure Patient Disposition: Left Without Being Seen Clinical Impression: Patient left without being seen Prescriptions: No Action low dose naltrexone 4.5 mg 4.5 mg PO DAILY Qty: 90 3RF bupropion HCl 150 mg tablet extended release 24 hr See Rx Instructions .ROUTE .COMPLEX Qty: 90 3RF Dose Instruction: TAKE ONE TABLET EVERY MORNING Rx Instructions: TAKE ONE TABLET EVERY MORNING levothyroxine 50 mcg tablet 50 mcg PO DAILY Qty: 90 1RF telmisartan-amlodipine 80-10 mg tablet 1 tab PO DAILY Qty: 90 0RF liothyronine 5 mcg tablet 5 mcg PO DAILY Qty: 90 3RF estradiol [Estrace] 0.01 % (0.1 mg/gram) cream 1 g vaginal 2XW Qty: 42.5 3RF tirzepatide 15 mg/0.5 mL pen injector 15 mg SUBCUT QWEEK Qty: 2 0RF Rx Instructions: Take 2.5 mg weekly for 4 weeks. Then increase to 5 mg weekly for maintenance. pravastatin 40 mg tablet 40 mg PO DAILY Qty: 60 3RF gabapentin 100 mg capsule 100 mg PO BEDTIME Qty: 90 3RF
== END 2024-06-14 21:50 | disposition left against medical advice (07) ==
PROVIDERS: Emergency Provider Emergency Medicine; PCP Family Medicine
DX: M25.551 Pain in right hip (principal)
CPT/HCPCS: 99281

== ENCOUNTER → 2024-06-15 16:08 | Outpatient (CLI) | payer MEDICARE, OTHER, SELFPAY ==
[2023-11-08 15:41] VITALS: BMI 32.4
--- NOTE | 2024-06-15 16:13 | DI.RAD.S_ITS ---
PROCEDURE: XR HIP W PEL IF DONE SILVIA MIN 4V INDICATIONS: Lumbar pain TECHNIQUE: AP pelvis with lateral view(s) of the bilateral hip(s). COMPARISON: None. FINDINGS: Bones: No fractures or dislocations. Mild degenerative sclerosis at the pubic symphysis. Pelvic ring appears intact. No suspicious bony lesions. Soft tissues: The visualized bowel gas pattern is normal. No suspicious soft tissue calcifications. IMPRESSION: No acute bony abnormality. Dictated by: Angelika Landrum M.D. on 06/16/2024 at 13:49 Approved by: Angelika Landrum M.D. on 06/16/2024 at 13:49
--- NOTE | 2024-06-15 16:13 | DI.RAD.S_ITS ---
PROCEDURE: XR LUMBAR SPINE MIN 4V INDICATIONS: Lumbar pain TECHNIQUE: 5 views of the lumbar spine were acquired, including bilateral oblique views. COMPARISON: None. FINDINGS: Bones: 5 nonrib-bearing vertebrae are present. Trace L1-2 retrolisthesis. There is otherwise normal bony alignment. Moderate facet arthropathy including joint space loss, hypertrophy, and sclerosis is present bilaterally at L5-S1. Mild multilevel disc height loss. No vertebral body compression fractures. No suspicious bony lesions. Soft tissues: Overlying bowel gas pattern is normal. No suspicious soft tissue calcifications. Oblique images: No pars defects. IMPRESSION: Facet arthropathy in the L5-S1 level. Multilevel disc degeneration. Dictated by: Angelika Landrum M.D. on 06/16/2024 at 13:50 Approved by: Angelika Landrum M.D. on 06/16/2024 at 13:51
== END ==
PROVIDERS: PCP Family Medicine; Referring Provider Nurse Practitioner Family; Visit Provider Nurse Practitioner Family
DX: M25.559 Pain in unspecified hip (principal); M47.817 Spondylosis without myelopathy or radiculopathy, lumbosacral region; M51.369 Other intervertebral disc degeneration, lumbar region without mention of lumbar back pain or lower extremity pain
CPT/HCPCS: 72110; 73522

== ENCOUNTER → 2024-06-18 11:26 | Outpatient (CLI) | payer MEDICARE, OTHER, SELFPAY ==
[2023-11-08 15:41] VITALS: BMI 32.4
[2024-06-18 13:29] LABS: TSH w/ Reflex to FT4 4.57 uIU/mL (0.47-4.68)
== END ==
PROVIDERS: PCP Family Medicine; Referring Provider Family Medicine; Visit Provider Family Medicine
DX: E03.8 Other specified hypothyroidism (principal)
CPT/HCPCS: 36415; 84443

== ENCOUNTER → 2024-09-25 16:13 | Outpatient (CLI) | payer MEDICARE, OTHER, SELFPAY ==
[2023-11-08 15:41] VITALS: BMI 32.4
--- NOTE | 2024-09-25 16:18 | DI.RAD.S_ITS ---
PROCEDURE: XR CHEST 2V INDICATIONS: L RIB PAIN TECHNIQUE: 2 views of the chest were acquired. COMPARISON: [facility], CR, XR CHEST 1V, 08/09/2020, 8:09. FINDINGS: Heart, mediastinum and pulmonary vascular: Heart is normal in size and configuration. Mediastinum is unremarkable. Pulmonary vascular is normal. Lungs: Clear Pleural spaces: Normal-no effusions or pneumothorax. Bones and soft tissues: Moderate degenerative disc disease seen throughout the thoracic spine. There is also mild chronic wedging upper midthoracic vertebral bodies. No rib fractures. IMPRESSION: No cardiopulmonary disease. Dictated by: Gualberto Girard M.D. on 09/28/2024 at 9:07 Approved by: Gualberto Girard M.D. on 09/28/2024 at 9:08
[2024-09-25 17:02] LABS: Add Manual Diff / Slide Review NO; Basophils Absolute Auto 0 /uL (0-100); Basophils Percent Auto 0.4 % (0-2); Eosinophils Absolute Auto 100 /uL (0-450); Eosinophils Percent Auto 2.2 % (2-4); Hematocrit 39.3 % (36-46); Hemoglobin 13.4 g/dL (12.0-16.0); Lymphocytes Absolute Auto 800 /uL (1100-4500); Lymphocytes Percent Auto 14.4 % (25-40); Mean Corpuscular Hemoglobin 30.8 PG (26-34); Mean Corpuscular Volume 90.4 fL (80-100); Monocytes Absolute Auto 400 /uL (0-900); Monocytes Percent Auto 7.6 % (3-14); Neutrophils Absolute Auto 4400 /uL (1500-7000); Neutrophils Percent Auto 75.4 % (50-75); Platelet Count 173 X10^3/uL (150-400); Red Blood Cell Count 4.35 X10^6/uL (4.0-5.2); Red Cell Distribution Width 13.1 % (11.6-14.8); White Blood Cell Count 5.9 X10^3/uL (4.5-11.0)
[2024-09-25 17:16] LABS: Alanine Aminotransferase 42 IU/L (<35); Albumin 4.3 g/dL (3.5-5.0); Albumin Globulin Ratio 1.7 (1.0-2.8); Alkaline Phosphatase 101 U/L (38-126); Aspartate Aminotransferase 40 IU/L (14-36); BUN Creatinine Ratio 18.4 (6-22); Bilirubin Total 1.1 mg/dL (0.2-1.3); Blood Urea Nitrogen 18 mg/dL (7-17); Calcium 9.1 mg/dL (8.4-10.2); Carbon Dioxide 30 mmol/L (22-32); Chloride 102 mmol/L (98-107); Estimated Glomerular Filt Rate 60 mL/min (>60); Globulin 2.6 g/dL (1.7-4.1); Glucose 91 mg/dL (80-110); HEMOLYSIS < 15 (0-50); Potassium 4.1 mmol/L (3.4-5.1); Sodium 138 mmol/L (137-145); Total Protein 6.9 g/dL (6.3-8.2)
[2024-09-25 17:17] LABS: Hemoglobin A1C% w Est Avg Glu 4.9 % (4.0-6.0)
[2024-09-25 17:34] LABS: Free T4, Direct Thyroxine 0.91 ng/dL (0.78-2.19)
== END ==
PROVIDERS: PCP Family Medicine; Referring Provider Family Medicine; Visit Provider Family Medicine
DX: R07.89 Other chest pain (principal); R73.03 Prediabetes; E03.9 Hypothyroidism, unspecified; I95.1 Orthostatic hypotension
CPT/HCPCS: 36415; 71046; 80053; 83036; 84439; 84443; 84481; 85025

== ENCOUNTER → 2024-10-07 16:00 | Outpatient (CLI) | payer MEDICARE, OTHER, SELFPAY ==
[2023-11-08 15:41] VITALS: BMI 32.4
[2024-10-07 18:51] LABS: Appearance Urine UA CLEAR; Bilirubin Urine UA NEGATIVE (NEGATIVE); Color Urine UA YELLOW; Glucose Urine UA NEGATIVE (Negative); Ketones Urine UA NEGATIVE (NEGATIVE); Leukocyte Esterase Urine UA NEGATIVE (NEGATIVE); Nitrite Urine UA NEGATIVE (Negative); Occult Blood Urine UA NEGATIVE (Negative); Protein Urine UA NEGATIVE (Negative); Urobilinogen Urine UA 0.2 E.U./dL (0.2)
[2024-10-07 18:52] LABS: pH Urine UA 5.5 (4.5-8.0)
[2024-10-07 18:58] LABS: Bacteria Urine Occasional (0-1); Culture Indicated Urine Cult Not Indicated; RBC Urine None Seen (0-5/HPF); Squamous Epithelial Cell Urine 1-5 /HPF (0-5/HPF); Urine Volume 10mL (spun); WBC Urine 0-1/HPF (0-5/HPF)
== END ==
PROVIDERS: PCP Family Medicine; Visit Provider Obstetrics & Gynecology Gynecology
DX: N39.0 Urinary tract infection, site not specified (principal)
CPT/HCPCS: 81001

== ENCOUNTER 2024-11-15 21:25 | Emergency (ER) | payer MEDICARE, OTHER, SELFPAY ==
[2023-11-08 15:41] VITALS: BMI 32.4
--- NOTE | 2024-11-15 21:34 | EKG_ITS ---
[address] [address] Test Date: 2024-11-15 Pat Name: Keisha Mclean Department: [facility] Room: Gender: Female Case Resolution Specialist: V : 1950 Requested By: Order Number: [id number] Reading MD: Mickey Schroeder Measurements Intervals [place] Rate: 55 P: 68 VT: 170 QRS: 23 QRSD: 86 T: 72 QT: 420 QTc: 401 Interpretive Statements Sinus bradycardia Electronically Signed On 11-20-2024 0:01:36 PDT by Mickey Schroeder
[2024-11-15 21:39] VITALS: BP 174/75; PULSE 71; RESP 16; TEMP 37.3; O2SAT 95; BMI 30.4
--- NOTE | 2024-11-15 21:58 | DI.RAD.S_ITS ---
PROCEDURE: XR CHEST 1V INDICATIONS: chest pain TECHNIQUE: One view of the chest was acquired. COMPARISON: [facility], CR, XR CHEST 2V, 09/25/2024, 15:23. FINDINGS: Surgical changes and devices: None. Lungs and pleura: Lungs are clear. No pleural effusions or pneumothorax. Mediastinum: Mediastinal contours appear normal. Heart size is normal. Bones and chest wall: No suspicious bony lesions. Overlying soft tissues appear unremarkable. IMPRESSION: No acute cardiopulmonary abnormality is seen. Dictated by: Angelika Landrum M.D. on 11/15/2024 at 22:54 Approved by: Angelika Landrum M.D. on 11/15/2024 at 22:55
[2024-11-15] MEDS: ASPIRIN 81 MG CHEW TAB 324 MG PO (22:36)
[2024-11-15 22:38] VITALS: BP 122/79; PULSE 58; RESP 13; O2SAT 96
[2024-11-15 22:40] LABS: Add Manual Diff / Slide Review NO; Basophils Absolute Auto 100 /uL (0-100); Basophils Percent Auto 0.6 % (0-2); Eosinophils Absolute Auto 100 /uL (0-450); Eosinophils Percent Auto 1.6 % (2-4); Hematocrit 38.8 % (36-46); Lymphocytes Absolute Auto 1300 /uL (1100-4500); Lymphocytes Percent Auto 16.9 % (25-40); Mean Corpuscular HGB Conc 33.4 % (30-36); Mean Corpuscular Hemoglobin 30.1 PG (26-34); Monocytes Absolute Auto 800 /uL (0-900); Monocytes Percent Auto 9.8 % (3-14); Neutrophils Absolute Auto 5600 /uL (1500-7000); Neutrophils Percent Auto 71.1 % (50-75); Platelet Count 165 X10^3/uL (150-400); Red Blood Cell Count 4.32 X10^6/uL (4.0-5.2); Red Cell Distribution Width 13.3 % (11.6-14.8); White Blood Cell Count 7.8 X10^3/uL (4.5-11.0)
--- NOTE | 2024-11-15 22:46 | ED.CHESTPAIN ---
HPI - Chest Pain General Chief Complaint: Chest Pain Stated Complaint: chest pain,5 weeks Time Seen by Provider: 11/15/24 21:57 Source: patient Mode of arrival: Ambulatory Limitations: no limitations History of Present Illness HPI narrative: 74-year-old female has been taking Ozempic for 6 weeks, had 30 lb weight lost, switch to tirzepatide about 6 weeks ago, stopped 3 weeks ago when she has had intermittent right upper quadrant abdominal and right lower chest discomfort, was concerned that she might be developing gallstones secondary to medications. No known gallbladder disease. No fevers or chills. Symptoms not necessarily worse with fatty or other food loads. No fevers or chills. No history of kidney stones. No injury trauma or new activities. No other new medication changes recalled. No history of known coronary artery disease, no history of blood clots to legs or lungs, no leg pain or swelling symptoms. No cough fevers or chills or shortness of breath. No painful or frequent urination. Related Data Previous Rx's ?Medication ?Instructions ?Recorded low dose naltrexone 4.5 mg PO DAILY #90 ea 07/31/22 gabapentin 100 mg capsule 100 mg PO BEDTIME #90 caps 10/17/23 bupropion HCl 150 mg 24 hr tablet, See Rx Instructions .Route 01/29/24 extended release .COMPLEX #90 tabs levothyroxine 50 mcg tablet 50 mcg PO DAILY #90 tabs 03/20/24 telmisartan 80 mg-amlodipine 10 mg 1 tab PO DAILY #90 tabs 04/10/24 tablet estradiol 0.01% (0.1 mg/gram) 1 g vaginal 2XW #42.5 grams 05/18/24 vaginal cream (Estrace) liothyronine 5 mcg tablet 5 mcg PO DAILY #90 tabs 05/18/24 pravastatin 40 mg tablet 40 mg PO DAILY #60 tabs 05/18/24 tirzepatide 15 mg/0.5 mL 15 mg (0.5 mL) SUBCUT QWEEK #4 mL 06/24/24 subcutaneous pen injector oxybutynin chloride 5 mg 5 mg PO DAILY #30 tabs 10/07/24 tablet,extended release 24 hr Allergies Allergy/AdvReac Type Severity Reaction Status Date / Time levothyroxine sodium (From Allergy Intermediate rash Verified 11/15/24 21:41 Tirosint) adhesive Allergy Mild Redness Verified 11/15/24 21:41 and itching silver (From Tegaderm AG Allergy Mild Rash Verified 11/15/24 21:41 Mesh) Patient History Medical History (Updated 11/16/24 @ 02:21 by Mahesh Ann MD) Vaginal atrophy RLQ abdominal pain Sleep disturbance Marginal zone lymphoma Osteopenia Intestinal bacterial overgrowth Weight gain, abnormal Nocturia more than twice per night Urge incontinence of urine Anxiety about health Fatigue Encounter for weight loss counseling Chronic pain of right heel Body posture problem Muscle spasm Acute neck pain Functional fecal incontinence Vaginal irritation Pelvic pain Irritable bowel syndrome with diarrhea Cholelithiasis Hepatic cyst Knee pain Strain of gastrocnemius muscle Travel advice encounter Macromastia Osteoarthritis (Unknown) Hypothyroidism (Unknown) Non Hodgkin's lymphoma Surgical History History of reduction mammoplasty (~2019) H/O lateral meniscus repair of right knee Hx of tubal ligation History of tonsillectomy and adenoidectomy Family History Mother Hypertension Thyroid disease Stroke Father Congestive heart failure CAD (coronary artery disease) Social History marital status: number of children: 2 household members: none lives independently: Yes housing: house education level: college occupational status: other Smoking Status: Never smoker second hand exposure: No alcohol intake: current substance use type: does not use Smoking Status: Never smoker alcohol intake frequency: 0-2 drinks per day Alcohol type: wine Exam Narrative Exam Narrative: GENERAL:Well-developed patient, in mild distress. HEAD: Atraumatic. Normocephalic. EYES: Pupils equal round and reactive. Extraocular motions intact. No scleral icterus. No injection or drainage. ENT: Nose without bleeding, purulent drainage. Throat without erythema, tonsillar hypertrophy or exudate. Airway patent. NECK: Trachea midline. Non tender CARDIOVASCULAR: Regular rate and rhythm without murmurs, gallops, or rubs. RESPIRATORY: Clear to auscultation. Breath sounds equal bilaterally. No wheezes, rales, or rhonchi. GASTROINTESTINAL: Abdomen soft, non-tender, nondistended. No tenderness right upper quadrant. EXTREMITIES: No edema or joint tenderness. BACK: Nontender without deformity or crepitance. No flank tenderness. NEURO: AOx3. Motor functions grossly nonfocal. SKIN: No rash or erythema of visible areas Initial Vital Signs Initial Vital Signs: Vital Signs Temperature 99.1 F 11/15/24 21:39 Pulse Rate 71 11/15/24 21:39 Respiratory Rate 16 11/15/24 21:39 Blood Pressure 174/75 H 11/15/24 21:39 Pulse Oximetry 95 11/15/24 21:39 Oxygen Delivery Method Room Air 11/15/24 21:39 Course Orders Ordered: ED Orders 11/15/24 21:34 EKG-12 Lead Stat 11/15/24 21:58 XR chest 1V Stat EKG-12 Lead Stat 11/15/24 22:25 Complete Blood Count AUTO DIFF Stat Comprehensive Metabolic Panel Stat Lipase Stat Troponin & CK Cardiac Panel Stat 11/15/24 22:53 US abdomen limited Stat 11/16/24 01:04 Urine Microscopic Stat Discontinued Medications Hydrocodone Bitart/Acetaminophen (Hydrocodone/Acet 5/325 Prepack) 1 bottle MISC DIRECTED ONE Stop: 11/16/24 02:22 Last Admin: 11/16/24 02:54 Dose: 1 bottle Documented By: HNG Aspirin (Aspirin 81 Mg Chew Tab) 324 mg PO NOW ONE Stop: 11/15/24 21:59 Last Admin: 11/15/24 22:36 Dose: 324 mg Documented By: NB Famotidine (Famotidine 20 Mg/2 Ml Vial) 20 mg IV NOW QUINTON Last Admin: 11/15/24 23:37 Dose: 20 mg Documented By: SB Vital Signs Vital signs: Vital Signs - 8 hr 11/15/24 21:39 11/15/24 22:38 11/15/24 22:38 Temperature 99.1 F Pulse Rate 71 58 L Respiratory Rate 16 13 Blood Pressure 174/75 H 122/79 Pulse Oximetry 95 96 Oxygen Delivery Method Room Air 11/15/24 23:00 11/15/24 23:00 11/15/24 23:30 Temperature Pulse Rate 54 L Respiratory Rate 21 Blood Pressure 162/66 H 152/70 H Pulse Oximetry 95 Oxygen Delivery Method 11/15/24 23:30 11/16/24 00:00 11/16/24 00:00 Temperature Pulse Rate 53 L 53 L Respiratory Rate 19 20 Blood Pressure 155/70 H Pulse Oximetry 95 95 Oxygen Delivery Method Room Air 11/16/24 00:30 11/16/24 00:30 11/16/24 01:01 Temperature Pulse Rate 51 L 50 L Respiratory Rate 14 Blood Pressure 170/77 H Pulse Oximetry 99 93 Oxygen Delivery Method 11/16/24 01:02 11/16/24 01:02 11/16/24 01:30 Temperature Pulse Rate 52 L 61 Respiratory Rate 23 20 Blood Pressure 163/67 H Pulse Oximetry 97 96 Oxygen Delivery Method Room Air 11/16/24 01:31 11/16/24 02:01 11/16/24 02:01 Temperature Pulse Rate 59 L Respiratory Rate 18 Blood Pressure 124/58 L 160/67 H Pulse Oximetry 96 Oxygen Delivery Method 11/16/24 02:30 11/16/24 02:30 Temperature Pulse Rate 53 L Respiratory Rate 20 Blood Pressure 150/68 H Pulse Oximetry 95 Oxygen Delivery Method MDM - Chest Pain Lab Data Attestation: I reviewed the patient's lab results. Lab results narrative: White blood cell count 7800, hemoglobin 13, platelets adequate. Glucose 88. BUN 25 with creatinine 1.5, normal serum CO2. Electrolytes unremarkable. Slight elevation ALT, other liver functions unremarkable. Lipase normal. Urinalysis negative. 11/15/24 22:25 11/15/24 22:25 Labs: Lab Results 11/15/24 11/16/24 Range/Units 22:25 01:04 WBC 7.8 (4.5-11.0) X10^3/uL RBC 4.32 (4.0-5.2) X10^6/uL Hgb 13.0 (12.0-16.0) g/dL Hct 38.8 (36-46) % MCV 90.0 (80-100) fL MCH 30.1 (26-34) PG MCHC 33.4 (30-36) % RDW 13.3 (11.6-14.8) % Plt Count 165 (150-400) X10^3/uL Neut % (Auto) 71.1 (50-75) % Lymph % (Auto) 16.9 L (25-40) % [place] % (Auto) 9.8 (3-14) % Eos % (Auto) 1.6 L (2-4) % Baso % (Auto) 0.6 (0-2) % Neut # (Auto) 5600 (9969-4810) /uL Lymph # (Auto) 1300 (5120-9081) /uL [place] # (Auto) 800 (0-900) /uL Eos # (Auto) 100 (0-450) /uL Baso # (Auto) 100 (0-100) /uL Sodium 138 (137-145) mmol/L Potassium 4.3 (3.4-5.1) mmol/L Chloride 104 (98-107) mmol/L Carbon Dioxide 25 (22-32) mmol/L BUN 25 H (7-17) mg/dL Creatinine 1.50 H (0.52-1.04) mg/dL Estimated GFR 36 L (>60) mL/min BUN/Creatinine Ratio 16.7 (6-22) Glucose 88 (70-99) mg/dL Calcium 10.0 (8.4-10.2) mg/dL Total Bilirubin 1.1 (0.2-1.3) mg/dL AST 36 (14-36) IU/L ALT 41 H (<35) IU/L Alkaline Phosphatase 108 (38-126) U/L Total Creatine Kinase 116 (30-135) U/L Troponin I < 0.012 (0.01-0.034) ng/mL Total Protein 7.2 (6.3-8.2) g/dL Albumin 4.4 (3.5-5.0) g/dL Globulin 2.8 (1.7-4.1) g/dL Albumin/Globulin Ratio 1.6 (1.0-2.8) Lipase 134 (23-300) U/L Urine RBC 0-1/hpf (0-5/HPF) Urine WBC None seen (0-5/HPF) Ur Squamous Epith Cells None seen (0-5/HPF) Urine Bacteria None seen (None) Ur Culture Indicated? Cult not indicated Vol Urine Centrifuged 10ml (spun) Urine Dip Bedside Urine Glucose Negative Bedside Urine Bilirubin - Negative Bedside Urine Ketone - Negative Urine Specific [place] 1.015 Bedside Urine Occult Blood - Negative Bedside Urine pH 6.0 Bedside Urine Protein + 30 Bedside Urine Urobilinogen 0.2 Bedside Urine Nitrite - Negative Bedside Urine Leukocytes - Negative Esterase Imaging Data Chest x-ray: Radiologist's Impression: Close Chest X-Ray (Signed) Angelika Landrum - 11/15/24 Launch?[address] [address] XRay Report Signed Patient: Keisha Mclean MR#: [id number] : 1950 Acct:[id number] Age/Sex: 74 / F Date of Service: 11/15/24 Loc: ED Accession Number: [id number] Procedure: XR chest 1V Ordering Provider: Mahseh Ann MD PROCEDURE: XR CHEST 1V INDICATIONS: chest pain TECHNIQUE: One view of the chest was acquired. COMPARISON: [facility], , XR CHEST 2V, 09/25/2024, 15:23. FINDINGS: Surgical changes and devices: None. Lungs and pleura: Lungs are clear. No pleural effusions or pneumothorax. Mediastinum: Mediastinal contours appear normal. Heart size is normal. Bones and chest wall: No suspicious bony lesions. Overlying soft tissues appear unremarkable. IMPRESSION: No acute cardiopulmonary abnormality is seen. Dictated by: Angelika Landrum M.D. on 11/15/2024 at 22:54 Approved by: Angelika Landrum M.D. on 11/15/2024 at 22:55 Ultrasound right upper quadrant abdomen: Radiologist's Impression: Close Abdomen Ultrasound (Signed) Angelika Landrum - 11/15/24 Chest X-Ray (Signed) Angelika Landrum - 11/15/24 Launch?[address] [address] Ultrasound Report Signed with Addenda Patient: Keisha Mclean MR#: [id number] : 1950 Acct:[id number] Age/Sex: 74 / F Date of Service: 11/15/24 Loc: ED Accession Number: [id number] Procedure: US abdomen limited Ordering Provider: Mahesh Ann MD ADDENDUMThis report includes an Addendum and supersedes previous reports for this exam. PROCEDURE: US ABDOMEN LIMITED INDICATIONS: RIGHT UPPER QUADRANT PAIN. KNOWN HEPATIC CYST AND KNOWN CHOLELITHIASIS. TECHNIQUE: Real-time focused scanning was performed of the abdomen, with image documentation. COMPARISON: [facility], , US ABDOMEN COMPLETE, 05/27/2019, 14:23. FINDINGS: The liver contains a large cyst measuring to 12.1 x 14.0 x 11.2 cm. Dependently layering sludge and a few nonmobile stones are present in gallbladder near the neck. The largest is 6.3 mm. No pericholecystic fluid or sonographic Chambers sign. There appears to be Phrygian cap morphology with probably debris at the fundus. Gallbladder wall is questionably thickened at 3.5 mm. IMPRESSION: Findings equivocal for acute appendicitis given thickened wall and nonmobile stones. MRCP with contrast may be useful for further evaluation material in the Phrygian cap. 14 cm liver cyst. Dictated by: Angelika Landrum M.D. on 11/16/2024 at 1:56 Approved by: Angelika Landrum M.D. on 11/16/2024 at 2:01 ADDENDUM: Clarification of IMPRESSION: Ultrasound findings are equivocal for acute cholecystitis rather than appendicitis as stated above. This is a voice recognition error. Dictated by: Angelika Landrum M.D. on 11/16/2024 at 2:38 Approved by: Angelika Landrum M.D. on 11/16/2024 at 2:41 Addendum Dictated By: Angelika Landrum MD Addendum Signed By: 11/16/24240 Addendum Cosigned By: DD/ /04/241 TD/TT: 11/16/2403/04/241 PROCEDURE: US ABDOMEN LIMITED INDICATIONS: RIGHT UPPER QUADRANT PAIN. KNOWN HEPATIC CYST AND KNOWN CHOLELITHIASIS. TECHNIQUE: Real-time focused scanning was performed of the abdomen, with image documentation. COMPARISON: [facility], , US ABDOMEN COMPLETE, 05/27/2019, 14:23. FINDINGS: The liver contains a large cyst measuring to 12.1 x 14.0 x 11.2 cm. Dependently layering sludge and a few nonmobile stones are present in gallbladder near the neck. The largest is 6.3 mm. No pericholecystic fluid or sonographic Chambers sign. There appears to be Phrygian cap morphology with probably debris at the fundus. Gallbladder wall is questionably thickened at 3.5 mm. IMPRESSION: Findings equivocal for acute appendicitis given thickened wall and nonmobile stones. MRCP with contrast may be useful for further evaluation material in the Phrygian cap. 14 cm liver cyst. Dictated by: Angelika Landrum M.D. on 11/16/2024 at 1:56 Approved by: Angelika Landrum M.D. on 11/16/2024 at 2:01 ECG Data Attestation: I personally reviewed and interpreted this ECG as follows: Interpretation: Sinus bradycardia with rate of 55, no obvious ST segment elevation or depression changes. ME 170, QRS 86, QTC 401. MDM Narrative Medical decision making narrative: 74-year-old female with 4-5 weeks of intermittent right upper quadrant abdominal pain, not necessarily worse with food, recent medication changes Ozempic then to terzepatide, now back on Ozempic, was reading about the medications and worried she might be developing gallstone problems. No known gallstones, no prior abdominal imaging suggestive of gallstones. Afebrile, sirs screen negative. No tenderness on exam right now. Screening labs sent. Ultrasound right upper quadrant abdominal ordered. Keep NPO for now. IV Pepcid. Lab data: White blood cell count 7800, hemoglobin 13, platelets adequate. Glucose 88. BUN 25 with creatinine 1.5, normal serum CO2. Electrolytes unremarkable. Slight elevation ALT, other liver functions unremarkable. Lipase normal. Urinalysis negative. Right upper quadrant ultrasound shows gallbladder stones, upper limit gallbladder wall thickening, no pericholecystic fluid. No common bile ductal dilatation. See ultrasound addended report. Patient with symptomatic cholelithiasis but tonight afebrile, without abdominal wall tenderness, some gallbladder wall thickening but no pericholecystic fluid, no common bile duct dilatation on ultrasound imaging. Liver functions and lipase normal. Advised patient to avoid fatty foods, avoid dairy products. Given home pack hydrocodone/APAP analgesic to use if needed. Follow up with General surgery in clinic do discuss elective cholecystectomy surgical options, contact information given for general surgery on-call. Might need referral from primary care provider. Recheck symptoms with primary care provider advised early this next week. Return precautions discussed. Discharged home. Discharge Plan Departure Patient Disposition: Home Clinical Impression: Cholelithiasis Activity Restrictions/Additional Instructions: Intermittent right upper quadrant abdominal pain. Ultrasound tonight showed presence of gallstones. Some thickening of the gallbladder wall but no pericholecystic fluid. No fever. No tenderness on abdominal examination examination right upper quadrant tonight. White blood cell count normal, liver functions and lipase tests normal. Consider symptomatic cholelithiasis, symptomatic gallstones, consider consultation with surgery for elective cholecystectomy gallbladder removal surgery. Consider referral from your regular primary care provider. Contact information provided for local general surgery clinic contact. Avoid fatty foods. Avoid dairy products. Both of these can stimulate the gallbladder on-call was more problems and pain. Home pack of pain medication to use if needed. Recheck with your regular doctor early this week to expedite further referrals in follow up. Return to this/nearest emergency department for any change worsening symptoms or any concerns prior. Prescriptions: No Action low dose naltrexone 4.5 mg 4.5 mg PO DAILY Qty: 90 3RF bupropion HCl 150 mg tablet extended release 24 hr See Rx Instructions .ROUTE .COMPLEX Qty: 90 3RF Dose Instruction: TAKE ONE TABLET EVERY MORNING Rx Instructions: TAKE ONE TABLET EVERY MORNING levothyroxine 50 mcg tablet 50 mcg PO DAILY Qty: 90 1RF telmisartan-amlodipine 80-10 mg tablet 1 tab PO DAILY Qty: 90 0RF liothyronine 5 mcg tablet 5 mcg PO DAILY Qty: 90 3RF estradiol [Estrace] 0.01 % (0.1 mg/gram) cream 1 g vaginal 2XW Qty: 42.5 3RF pravastatin 40 mg tablet 40 mg PO DAILY Qty: 60 3RF gabapentin 100 mg capsule 100 mg PO BEDTIME Qty: 90 3RF tirzepatide 15 mg/0.5 mL pen injector 15 mg SUBCUT QWEEK Qty: 4 3RF Rx Instructions: Take 5 mg weekly; after 4 weeks, can increase to 7.5 mg weekly. oxybutynin chloride 5 mg tablet extended release 24hr 5 mg PO DAILY Qty: 30 11RF Referrals: Rajiv Hill MD [Physician, General Surgery] Brianne Gibson DO [Physician, Family Practice] Stand Alone Forms: Patient Portal/API
--- NOTE | 2024-11-15 22:53 | DI.US.S_ITS ---
PROCEDURE: US ABDOMEN LIMITED INDICATIONS: RIGHT UPPER QUADRANT PAIN. KNOWN HEPATIC CYST AND KNOWN CHOLELITHIASIS. TECHNIQUE: Real-time focused scanning was performed of the abdomen, with image documentation. COMPARISON: [facility], , US ABDOMEN COMPLETE, 05/27/2019, 14:23. FINDINGS: The liver contains a large cyst measuring to 12.1 x 14.0 x 11.2 cm. Dependently layering sludge and a few nonmobile stones are present in gallbladder near the neck. The largest is 6.3 mm. No pericholecystic fluid or sonographic Chambers sign. There appears to be Phrygian cap morphology with probably debris at the fundus. Gallbladder wall is questionably thickened at 3.5 mm. IMPRESSION: Findings equivocal for acute appendicitis given thickened wall and nonmobile stones. MRCP with contrast may be useful for further evaluation material in the Phrygian cap. 14 cm liver cyst. Dictated by: Angelika Landrum M.D. on 11/16/2024 at 1:56 Approved by: Angelika Landrum M.D. on 11/16/2024 at 2:01
[2024-11-15 23:00] VITALS: BP 162/66; PULSE 54; RESP 21; O2SAT 95
[2024-11-15 23:00] LABS: Alanine Aminotransferase 41 IU/L (<35); Albumin 4.4 g/dL (3.5-5.0); Albumin Globulin Ratio 1.6 (1.0-2.8); Alkaline Phosphatase 108 U/L (38-126); Aspartate Aminotransferase 36 IU/L (14-36); BUN Creatinine Ratio 16.7 (6-22); Bilirubin Total 1.1 mg/dL (0.2-1.3); Blood Urea Nitrogen 25 mg/dL (7-17); Carbon Dioxide 25 mmol/L (22-32); Chloride 104 mmol/L (98-107); Creatine Kinase 116 U/L (30-135); Estimated Glomerular Filt Rate 36 mL/min (>60); Globulin 2.8 g/dL (1.7-4.1); Glucose 88 mg/dL (70-99); HEMOLYSIS < 15 (0-50); Lipase 134 U/L (23-300); Potassium 4.3 mmol/L (3.4-5.1); Sodium 138 mmol/L (137-145); Total Protein 7.2 g/dL (6.3-8.2)
[2024-11-15 23:12] LABS: Troponin I < 0.012 ng/mL (0.01-0.034)
[2024-11-15 23:30] VITALS: BP 152/70; PULSE 53; RESP 19; O2SAT 95
[2024-11-15] MEDS: FAMOTIDINE 20 MG/2 ML VIAL IV (23:37)
[2024-11-16] VITALS (8 sets, daily range): BP systolic 124–170; BP diastolic 58–77; PULSE 50–61; RESP 14–23; O2SAT 93–99
[2024-11-16 01:44] LABS: Bacteria Urine None Seen; RBC Urine 0-1/HPF (0-5/HPF); Squamous Epithelial Cell Urine None Seen (0-5/HPF); Urine Volume 10mL (spun); WBC Urine None Seen (0-5/HPF)
[2024-11-16 01:45] LABS: Culture Indicated Urine Cult Not Indicated
[2024-11-16] MEDS: HYDROCODONE/ACET 5/325 PREPACK 1 BOTTLE MISC (02:54)
== END 2024-11-16 02:59 | disposition home or self-care (01) ==
PROVIDERS: Emergency Provider Emergency Medicine; PCP Family Medicine
DX: K80.20 Calculus of gallbladder without cholecystitis without obstruction (principal)
CPT/HCPCS: 36415; 71045; 76705; 80053; 81003; 81015; 82550; 83690; 84484; 85025; 93005; 96374; 99284

== ENCOUNTER → 2024-11-25 08:56 | Outpatient (CLI) | payer MEDICARE, OTHER, SELFPAY ==
[2023-11-08 15:41] VITALS: BMI 32.4
--- NOTE | 2024-11-25 08:58 | DI.CT.S_ITS ---
PROCEDURE: CT ABDOMEN PELVIS W CON INDICATIONS: PAIN TECHNIQUE: After the administration of intravenous contrast, axial sections acquired from the lung bases to the pubic symphysis. Coronal and sagittal reformats were performed. For radiation dose reduction, the following was used: automated exposure control, adjustment of mA and/or kV according to patient size. COMPARISON: [facility], US, US ABDOMEN LIMITED, 11/16/2024, 0:18. [facility], CT, CT ABDOMEN PELVIS W CON, 08/09/2020, 6:16. FINDINGS: Image quality: Diagnostic. Lower Chest: No significant findings. ABDOMEN: Liver: No solid mass. Simple appearing cyst in right lobe of liver now measures up to 14.3 x 12.5 cm in size series 2, image 37 compared to 9.1 cm on previous study. Gallbladder: Multiple calcified gallstones are seen. There is gallbladder wall thickening and trace amount of pericholecystic fluid. Biliary ducts: Mild intrahepatic biliary ductal dilatation is seen. Common bile duct measures up to 5 mm in diameter and is within normal limits . Pancreas: No ductal dilation. Spleen: Size is within normal limits. Adrenal Glands: No adrenal nodules. Kidneys and Ureters: No hydronephrosis. No solid mass. No complex renal cystic lesion which requires follow up. Stomach and Bowel: There is no bowel obstruction. No abnormal bowel wall thickening or mesenteric fat stranding. No abscess collection. Peritoneum: No abnormal intraperitoneal fluid. No free air. Ventral Wall: No significant ventral hernia. Abdominal Nodes: No retroperitoneal or mesenteric adenopathy by size criteria. Vessels: Aorta and inferior vena cava are normal in size. PELVIS: Pelvic Organs: Unremarkable. Bladder: No bladder wall thickening, accounting for underdistention. Pelvic Nodes: No enlarged lymph nodes. Miscellaneous: No inguinal hernias are seen. Bones: No aggressive osseous abnormality. IMPRESSION: 1. Interval increase in size of patient's known large cyst in right hepatic lobe as above. No gross solid appearing hepatic lesion. 2. Cholelithiasis with questionable gallbladder wall thickening and small amount of pericholecystic fluid. Cholecystitis cannot be excluded. Clinical correlation is recommended. 3. Mild intrahepatic biliary ductal dilatation. No common bile duct dilatation. No obvious choledocholithiasis. 4. No bowel obstruction or abnormal bowel wall thickening. No free fluid or free air. Dictated by: Geronimo Liu M.D. on 11/25/2024 at 21:18 Approved by: Geronimo Liu M.D. on 11/25/2024 at 21:26
== END ==
PROVIDERS: PCP Family Medicine; Referring Provider Family Medicine; Visit Provider Surgery
DX: K76.89 Other specified diseases of liver (principal); K80.20 Calculus of gallbladder without cholecystitis without obstruction; K83.8 Other specified diseases of biliary tract; R10.11 Right upper quadrant pain
CPT/HCPCS: 74177; Q9967

== ENCOUNTER → 2025-06-04 16:07 | Outpatient (CLI) | payer MEDICARE, OTHER, SELFPAY ==
[2023-11-08 15:41] VITALS: BMI 32.4
--- NOTE | 2025-06-04 | DI.MRI.S_ITS ---
PROCEDURE: MR HIP RT WO CON INDICATIONS: right hip pain TECHNIQUE: Noncontrast coronal T1 spin echo and STIR through the bony pelvis. Coronal and axial T2 fast spin echo with fat saturation, sagittal T1 spin echo, and oblique axial T2 fast spin echo with fat saturation through the hip. COMPARISON: [facility], CR, XR HIP W PEL IF DONE SILVIA 3TO4V, 06/15/2024, 16:16. FINDINGS: Image quality: Diagnostic. Right Hip (small FOV): Bone marrow edema within the weight-bearing superior femoral head with flattening of the superior medial femoral head, concerning for developing insufficiency reaction without discrete fracture plane. Multifocal deep articular cartilage thinning and fraying, up to grade 3 throughout the femoral acetabular joint. Circumferential labral degeneration with degenerative tearing of the anterior superior to superior lateral labrum. Small anteriorly directed paralabral cysts which measure up to 1.1 cm in conglomerate. Trace right hip joint effusion. Otherwise the capsule is intact. Osseous structures: Mild desiccation of the inferior lumbar spine intervertebral discs. On large field of view, of the left hip is unremarkable. Mild osteoarthritis of the bilateral sacroiliac joints. Moderate degenerative proliferation of the pubic symphysis with superiorly directed osteophytosis. Muscles/tendons/bursae: Mild insertional tendinosis of the right gluteus medius and minimus. High-grade, near complete tearing of the semimembranosus and conjoint hamstring tendon origin from the ischial tuberosity with a few intact fibers along the superior ischial tuberosity. The conjoint hamstring tendon is distally retracted by 2.7 cm, (T2 coronal series 6, image 24). Associated large volume ischial bursitis small volume obturator internus bursitis with edema tracking along the myotendinous junction adjacent to the hamstring tendon origin, likely reactive. Mild tendinosis of the right iliopsoas with small volume right iliopsoas bursitis. The other adductors are unremarkable. The proximal quadriceps are unremarkable. On large field of view of the left hip, there is high-grade undersurface tearing of the left conjoint hamstring tendon origin and semimembranous is origin with moderate volume fluid at the tuberosity. At least moderate insertional tendinosis of the left gluteal cuff with small volume left trochanteric bursitis. Neurovascular: Unremarkable. Pelvic viscera: Nabothian cysts in the cervix. A 1.3 cm intramural T2 hyperintense nonaggressive appearing cyst in the right anus at 9:00 (series 3, image 14; series 4, image 23). Otherwise unremarkable on nondedicated exam. Subcutaneous tissues: Unremarkable. IMPRESSION: 1. Findings concerning for developing insufficiency fracture of the right femoral head with trabecular bone marrow edema and flattening of the intra medial weight- bearing femoral head cortical surface. 2. Moderate osteoarthritis of the right hip with areas of grade 3 chondromalacia. 3. High-grade, functionally complete, tear of the right semimembranosus and conjoint hamstring tendon origin from the ischial tuberosity with retraction of the conjoint hamstring tendon by 2.7 cm. Additional high-grade tearing of the left common hamstring origin from the left ischial tuberosity seen on large field of view. If indicated, this could be further evaluated with left hip MRI. 4. Degenerative tearing and fraying of the anterior superior to superior lateral labrum. 5. Partially visualized 1.3 cm intramural T2 hyperintense cystic structure in the superior anus at 9:00 a.m. This may represent a submucosal cyst amongst other considerations, recommend correlation with rectal MRI with without contrast. Dictated by: Juarez Colon M.D. on 06/04/2025 at 17:14 Approved by: Juarez Colon M.D. on 06/04/2025 at 17:29
== END ==
LOC: MRI 16:08
PROVIDERS: PCP Family Medicine; Referring Provider Orthopaedic Surgery; Visit Provider Orthopaedic Surgery
DX: M16.11 Unilateral primary osteoarthritis, right hip (principal); M25.551 Pain in right hip; M94.251 Chondromalacia, right hip; S76.012A Strain of muscle, fascia and tendon of left hip, initial encounter; S76.011A Strain of muscle, fascia and tendon of right hip, initial encounter; S73.191A Other sprain of right hip, initial encounter; K62.89 Other specified diseases of anus and rectum; N88.8 Other specified noninflammatory disorders of cervix uteri
CPT/HCPCS: 73721

== ENCOUNTER → 2025-06-04 16:11 | Outpatient (CLI) | payer MEDICARE, OTHER, SELFPAY ==
[2023-11-08 15:41] VITALS: BMI 32.4
--- NOTE | 2025-06-04 16:12 | DI.MG.S_ITS ---
MM screening mammo BI: 06/04/2025. BI-RADS: 0 CLINICAL: 74-year old female for bilateral screening mammogram. Tyrer-Cuzick lifetime risk of 5.2%. No personal or first-degree family history of breast cancer. The patient is status-post reduction mammoplasty. PRIOR EXAMS 05/11/2024, 05/06/2023, 05/02/2022, 04/14/2021. MAMMOGRAPHY TECHNIQUE: 2D and 3D (tomosynthesis) digital mammographic views obtained, with additional images as needed for full coverage. Current study was also evaluated with a Computer Aided Detection (CAD) system. DENSITY C. The breasts are heterogeneously dense, which may obscure small masses. MAMMOGRAPHY FINDINGS Right: CC only, Inner, Middle depth: Asymmetry needing additional imaging evaluation. This finding has increased in prominence and is also slightly increased in size. Left: No suspicious mass, asymmetry, microcalcification, or other abnormality seen. IMPRESSION: Right (Asymmetry): CC only, Inner, Middle depth * Incomplete - asymmetry needing additional imaging evaluation. Left * No evidence of malignancy. RECOMMENDATIONS Right: CC only, Inner, Middle depth * Further evaluation with diagnostic mammography and diagnostic ultrasound. Ultrasound to be performed only if needed. OVERALL ASSESSMENT CATEGORY BI-RADS-0: Incomplete - Need Additional Imaging Evaluation. ELECTRONICALLY SIGNED: Jong Machado M.D. on 06/07/2025 at 07:17:00 AM PT Interpreting Station ID: [id number]
== END ==
LOC: MAMMO 16:11
PROVIDERS: PCP Family Medicine; Referring Provider Family Medicine; Visit Provider Family Medicine
DX: Z12.31 Encounter for screening mammogram for malignant neoplasm of breast (principal); R92.333 Mammographic heterogeneous density, bilateral breasts
CPT/HCPCS: 77063; 77067

== ENCOUNTER 2025-06-04 22:47 | Emergency (ER) | payer MEDICARE, OTHER, SELFPAY ==
[2023-11-08 15:41] VITALS: BMI 32.4
--- NOTE | 2025-06-04 22:54 | EKG_ITS ---
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
[2025-06-04 22:57] VITALS: BP 210/101; PULSE 81; RESP 24; TEMP 36.5; O2SAT 100; BMI 30.4
--- NOTE | 2025-06-04 22:59 | DI.RAD.S_ITS ---
PROCEDURE: XR CHEST 1V INDICATIONS: Chest Pain TECHNIQUE: One view of the chest was acquired. COMPARISON: [facility], CR, XR CHEST 1V, 11/15/2024, 22:05. [facility], CR, XR CHEST 2V, 09/25/2024, 15:23. FINDINGS AND IMPRESSION: No airspace consolidation or pleural effusion on this single view study with low lung volumes. Normal heart size. Degenerative osseous findings. Dictated by: Christian Forte M.D. on 06/04/2025 at 23:33 Approved by: Christian Forte M.D. on 06/04/2025 at 23:34
[2025-06-04 23:09] LABS: Add Manual Diff / Slide Review NO; Hematocrit 44.2 % (36-46); Hemoglobin 15.1 g/dL (12.0-16.0); Lymphocytes Absolute Auto 1600 /uL (1100-4500); Mean Corpuscular HGB Conc 34.2 % (30-36); Mean Corpuscular Hemoglobin 30.3 PG (26-34); Mean Corpuscular Volume 88.5 fL (80-100); Platelet Count 189 X10^3/uL (150-400)
[2025-06-04 23:14] LABS: INR 1.0 (0.9-1.3); Prothrombin Time 11.3 SECONDS (9.4-12.5)
[2025-06-04 23:17] LABS: PTT Partial Thromboplastin Tim 26 SECONDS (25.1-36.5)
[2025-06-04] MEDS: ASPIRIN 81 MG CHEW TAB 324 MG PO (23:17)
[2025-06-04 23:18] LABS: Alanine Aminotransferase 29 IU/L (<35); Albumin 4.9 g/dL (3.5-5.0); Albumin Globulin Ratio 1.5 (1.0-2.8); Alkaline Phosphatase 83 U/L (38-126); Blood Urea Nitrogen 23 mg/dL (7-17); Calcium 10.1 mg/dL (8.4-10.2); Carbon Dioxide 29 mmol/L (22-32); Chloride 102 mmol/L (98-107); Creatine Kinase 126 U/L (30-135); Estimated Glomerular Filt Rate 58 mL/min (>60); Globulin 3.3 g/dL (1.7-4.1); Glucose 118 mg/dL (70-99); HEMOLYSIS < 15 (0-50); Lipase 271 U/L (23-300); Magnesium 2.1 mg/dL (1.6-2.3); Potassium 3.9 mmol/L (3.4-5.1); Sodium 139 mmol/L (137-145); Total Protein 8.2 g/dL (6.3-8.2)
--- NOTE | 2025-06-04 23:28 | ED.CHESTPAIN ---
HPI - Chest Pain General Chief Complaint: Chest Pain Stated Complaint: Chest Pain, L Arm Pain Time Seen by Provider: 06/04/25 23:08 Source: patient Mode of arrival: Ambulatory History of Present Illness HPI narrative: 74-year-old woman with a history of hypothyroidism, hyperlipidemia, diabetes, hypertension who drove herself to the emergency department complaining of 30 minutes of left chest and shoulder pain associated with dyspnea. She states that about a week ago she was moving her workout bike at home did not feel any acute pain at that time but was pressing against the couch at exactly the level where her pain currently is. She was at rest today when she had reproducible pain the left anterior mid clavicular line rib 12. That then radiated up to her shoulder out to her arm and caused enough pain that it made her short of breath. Pain has resolved at this point is completely reproducible and same area. She has not had similar findings. She has not had previous cardiac disease of which she is aware Related Data Home Medications ?Medication ?Instructions ?Recorded ?Confirmed semaglutide 2 mg/dose (8 mg/3 mL) 2 mg SUBCUT QWEEK 05/26/25 05/26/25 subcutaneous pen injector (Ozempic) Previous Rx's ?Medication ?Instructions ?Recorded low dose naltrexone 4.5 mg PO DAILY #90 ea 07/31/22 gabapentin 100 mg capsule 100 mg PO BEDTIME #90 caps 10/17/23 bupropion HCl 150 mg 24 hr tablet, See Rx Instructions .Route 01/29/24 extended release .COMPLEX #90 tabs levothyroxine 50 mcg tablet 50 mcg PO DAILY #90 tabs 03/20/24 telmisartan 80 mg-amlodipine 10 mg 1 tab PO DAILY #90 tabs 04/10/24 tablet estradiol 0.01% (0.1 mg/gram) 1 g vaginal 2XW #42.5 grams 05/18/24 vaginal cream (Estrace) liothyronine 5 mcg tablet 5 mcg PO DAILY #90 tabs 05/18/24 pravastatin 40 mg tablet 40 mg PO DAILY #60 tabs 05/18/24 oxybutynin chloride 5 mg 5 mg PO DAILY #30 tabs 10/07/24 tablet,extended release 24 hr testosterone 50 mg/5 gram (1 %) See Rx Instructions transdermal 11/18/24 transdermal gel QAM #150 grams Allergies Allergy/AdvReac Type Severity Reaction Status Date / Time levothyroxine sodium (From Allergy Intermediate rash Verified 05/26/25 11:38 Tirosint) adhesive Allergy Mild Redness Verified 05/26/25 11:38 and itching silver (From Tegaderm AG Allergy Mild Rash Verified 05/26/25 11:38 Mesh) skin glue Allergy Severe Rash Uncoded 05/26/25 11:38 Review of Systems Review of Systems Narrative: Pertinent positive and negative findings as per HPI Patient History Medical History (Updated 06/05/25 @ 05:00 by Hellen Bower MD) Vaginal atrophy RLQ abdominal pain Sleep disturbance Marginal zone lymphoma Osteopenia Intestinal bacterial overgrowth Weight gain, abnormal Nocturia more than twice per night Urge incontinence of urine Anxiety about health Fatigue Encounter for weight loss counseling Chronic pain of right heel Body posture problem Muscle spasm Acute neck pain Functional fecal incontinence Vaginal irritation Pelvic pain Irritable bowel syndrome with diarrhea Cholelithiasis Hepatic cyst Knee pain Strain of gastrocnemius muscle Travel advice encounter Macromastia Osteoarthritis (Unknown) Hypothyroidism (Unknown) Non Hodgkin's lymphoma Surgical History History of reduction mammoplasty (~2019) H/O lateral meniscus repair of right knee Hx of tubal ligation History of tonsillectomy and adenoidectomy Family History Mother Hypertension Thyroid disease Stroke Father Congestive heart failure CAD (coronary artery disease) Social History marital status: number of children: 2 household members: none lives independently: Yes housing: house education level: college occupational status: other Smoking Status: Never smoker second hand exposure: No alcohol intake: current substance use type: does not use Smoking Status: Never smoker alcohol intake frequency: 0-2 drinks per day Alcohol type: wine Exam Initial Vital Signs Initial Vital Signs: Vital Signs Temperature 97.7 F 06/04/25 22:57 Pulse Rate 81 06/04/25 22:57 Respiratory Rate 24 06/04/25 22:57 Blood Pressure 210/101 H 06/04/25 22:57 Pulse Oximetry 100 06/04/25 22:57 Oxygen Delivery Method Room Air 06/04/25 22:57 General: Healthy appearing, in no acute distress. Able to give a complete and coherent history. Well-nourished well-developed HEENT: Moist mucous membranes, normal sclera with reactive pupils, Respiratory: Lungs are clear to auscultation, no wheezing no rales no rhonchi. Full and symmetrical air movement. Reproducible chest pain with palpation left mid axillary line rib 12th without overlying erythema or palpable abnormality to the rib itself Cardiac: Regular rate and rhythm no murmurs no bruits Abdomen: Soft, nontender, no rebound or guarding, no flank pain Skin: Warm and dry, no rashes Neurologic: Grossly neurologically intact with no obvious asymmetries or abnormalities Extremities: No trauma, well perfused Psych: Cooperative, appropriate insight and affect Course Orders Ordered: ED Orders 06/04/25 22:49 EKG-12 Lead Stat 06/04/25 22:59 XR chest 1V Stat 06/04/25 23:00 Complete Blood Count AUTO DIFF Stat Comprehensive Metabolic Panel Stat Lipase Stat Magnesium Stat NT-proBNP (BNP-Adult 18+) Stat PTT Partial Thromboplastin Abhishek Stat Prothrombin Time INR Stat Troponin & CK Cardiac Panel Stat 06/05/25 01:00 Troponin I Stat EKG-12 Lead Stat Discontinued Medications Aspirin (Aspirin 81 Mg Chew Tab) 324 mg PO NOW ONE Stop: 06/04/25 23:00 Last Admin: 06/04/25 23:17 Dose: 324 mg Documented By: JUAN Vital Signs Vital signs: Vital Signs - 8 hr 06/04/25 22:57 06/04/25 23:29 06/04/25 23:30 Temperature 97.7 F Pulse Rate 81 58 L 57 L Respiratory Rate 24 19 19 Blood Pressure 210/101 H Pulse Oximetry 100 95 95 Oxygen Delivery Method Room Air 06/04/25 23:30 06/05/25 00:00 06/05/25 00:00 Temperature Pulse Rate 58 L Respiratory Rate 18 Blood Pressure 151/70 H 150/67 H Pulse Oximetry 95 Oxygen Delivery Method 06/05/25 00:30 06/05/25 00:30 06/05/25 00:56 Temperature Pulse Rate 60 Respiratory Rate 20 Blood Pressure 175/70 H 177/109 H Pulse Oximetry 96 Oxygen Delivery Method 06/05/25 00:56 06/05/25 01:00 06/05/25 01:01 Temperature Pulse Rate 61 63 Respiratory Rate 55 H Blood Pressure 190/76 H Pulse Oximetry 96 96 Oxygen Delivery Method 06/05/25 01:01 06/05/25 01:30 06/05/25 02:00 Temperature Pulse Rate 56 L 58 L 61 Respiratory Rate 23 19 24 Blood Pressure Pulse Oximetry 95 94 95 Oxygen Delivery Method Room Air 06/05/25 02:30 06/05/25 03:05 06/05/25 03:06 Temperature Pulse Rate 60 59 L 55 L Respiratory Rate 22 18 Blood Pressure Pulse Oximetry 95 96 95 Oxygen Delivery Method Room Air 06/05/25 03:06 06/05/25 03:30 06/05/25 03:31 Temperature Pulse Rate 57 L 57 L Respiratory Rate 20 18 Blood Pressure 169/73 H Pulse Oximetry 94 94 Oxygen Delivery Method 06/05/25 03:31 06/05/25 04:00 06/05/25 04:00 Temperature Pulse Rate 53 L Respiratory Rate 17 Blood Pressure 155/71 H 160/69 H Pulse Oximetry 96 Oxygen Delivery Method MDM - Chest Pain Lab Data 06/04/25 23:00 06/04/25 23:00 Labs: Lab Results 06/04/25 06/05/25 Range/Units 23:00 01:00 WBC 6.7 (4.5-11.0) X10^3/uL RBC 5.00 (4.0-5.2) X10^6/uL Hgb 15.1 (12.0-16.0) g/dL Hct 44.2 (36-46) % MCV 88.5 (80-100) fL MCH 30.3 (26-34) PG MCHC 34.2 (30-36) % RDW 13.4 (11.6-14.8) % Plt Count 189 (150-400) X10^3/uL Neut % (Auto) 65.8 (50-75) % Lymph % (Auto) 23.7 L (25-40) % Person % (Auto) 7.3 (3-14) % Eos % (Auto) 2.0 (2-4) % Baso % (Auto) 1.2 (0-2) % Neut # (Auto) 4400 (6780-2620) /uL Lymph # (Auto) 1600 (2142-6388) /uL Person # (Auto) 500 (0-900) /uL Eos # (Auto) 100 (0-450) /uL Baso # (Auto) 100 (0-100) /uL PT 11.3 (9.4-12.5) SECONDS INR 1.0 (0.9-1.3) APTT 26 (25.1-36.5) SECONDS Sodium 139 (137-145) mmol/L Potassium 3.9 (3.4-5.1) mmol/L Chloride 102 (98-107) mmol/L Carbon Dioxide 29 (22-32) mmol/L BUN 23 H (7-17) mg/dL Creatinine 1.00 (0.52-1.04) mg/dL Estimated GFR 58 L (>60) mL/min BUN/Creatinine Ratio 23.0 H (6-22) Glucose 118 H (70-99) mg/dL Calcium 10.1 (8.4-10.2) mg/dL Magnesium 2.1 (1.6-2.3) mg/dL Total Bilirubin 0.8 (0.2-1.3) mg/dL AST 31 (14-36) IU/L ALT 29 (<35) IU/L Alkaline Phosphatase 83 (38-126) U/L Total Creatine Kinase 126 (30-135) U/L Troponin I < 0.012 < 0.012 (0.01-0.034) ng/mL NT-Pro-B Natriuret Pep < 20 (<450) pg/mL Total Protein 8.2 (6.3-8.2) g/dL Albumin 4.9 (3.5-5.0) g/dL Globulin 3.3 (1.7-4.1) g/dL Albumin/Globulin Ratio 1.5 (1.0-2.8) Lipase 271 (23-300) U/L [facility] Narrative Medical decision making narrative: CC: Left-sided chest pain at rest reproducible with palpation Complicating co-morbidities: History of hypothyroidism, hyperlipidemia Data collected from: patient Differential considered: Acute coronary syndrome, musculoskeletal pain, rib fracture, shingles, pulmonary embolism felt to be less likely in the absence of hypoxia, tachycardia or other risk factors Exam documented above, pertinent findings include: Patient is alert and appropriate. Pain is reproducible with palpation over the area indicated. Lungs are otherwise clear Lab Test results independently reviewed as above. Pertinent findings: CBC is unremarkable Chemistries are reassuring First and 2nd troponins are undetectable BNP is not elevated Independently reviewed EKG: EKG shows sinus rhythm at a rate of 77 with no acute ischemic changes Imaging studies independently reviewed: Chest x-ray is unremarkable Treatments: 15 mg of IV Toradol Discussion: 74-year-old woman with acute onset left chest pain absolutely reproducible with palpation along the left anterior lower rib. There is no evidence of acute coronary event based on troponins, BNP, EKG. Her chest x-ray is unremarkable there was no evidence of broken bones no obvious metastatic findings. I suspect that this is related to the moving furniture/heavy lifting that she had been doing about a week ago. She did find some relief with Toradol. Her heart score today equals 2. This point there is no indication for further evaluation, hospitalization or imaging studies and she is safely discharge Discharge Plan Departure Patient Disposition: Home Clinical Impression: Rib pain on left side Instructions: DI for Rib Contusion Activity Restrictions/Additional Instructions: Thank you for coming in today I did not find any evidence of heart attack or heart attack like syndrome. Your EKG was normal. We did to repeat cardiac enzyme tests that were undetectable. There was no evidence of infection, collapsed lung, abnormalities like fractures or bony irregularity at the area where you are so tender. With an area that is so tender and completely reproduces her pain, this strongly suggests that your pain is related to bones and muscles. You may have gently pulled up some of the muscle off of the bone itself while you were moving your exercise bike last week. This can definitely cause inflammation at that site and will hurt throughout your entire chest wall. In the emergency department you are given Toradol to help with the pain Using 400 mg of ibuprofen (2 [id number] pills) and 1 Tylenol every 6 hours can be very helpful in controlling pain. If you find that you are getting worse or develop any new symptoms, please feel free to return to the emergency department for further evaluation. Prescriptions: No Action low dose naltrexone 4.5 mg 4.5 mg PO DAILY Qty: 90 3RF bupropion HCl 150 mg tablet extended release 24 hr See Rx Instructions .ROUTE .COMPLEX Qty: 90 3RF Dose Instruction: TAKE ONE TABLET EVERY MORNING Rx Instructions: TAKE ONE TABLET EVERY MORNING levothyroxine 50 mcg tablet 50 mcg PO DAILY Qty: 90 1RF telmisartan-amlodipine 80-10 mg tablet 1 tab PO DAILY Qty: 90 0RF liothyronine 5 mcg tablet 5 mcg PO DAILY Qty: 90 3RF estradiol [Estrace] 0.01 % (0.1 mg/gram) cream 1 g vaginal 2XW Qty: 42.5 3RF pravastatin 40 mg tablet 40 mg PO DAILY Qty: 60 3RF gabapentin 100 mg capsule 100 mg PO BEDTIME Qty: 90 3RF oxybutynin chloride 5 mg tablet extended release 24hr 5 mg PO DAILY Qty: 30 11RF testosterone 50 mg/5 gram (1 %) gel See Rx Instructions transdermal QAM Qty: 150 0RF Rx Instructions: 0.5 ml to calf daily (pea size amount) transdermally every morning; Ozempic 2 mg/dose (8 mg/3 mL) pen injector 2 mg SUBCUT QWEEK Referrals: Colette Matthew DO [Primary Care Provider, Family Practice] Stand Alone Forms: Patient Portal/API
[2025-06-04 23:29] VITALS: PULSE 58; RESP 19; O2SAT 95
[2025-06-04 23:30] VITALS: BP 151/70; PULSE 57; RESP 19; O2SAT 95
[2025-06-04 23:30] LABS: NT-proBNP (BNP-Adult 18+) < 20 pg/mL (<450); Troponin I < 0.012 ng/mL (0.01-0.034)
[2025-06-05] VITALS (15 sets, daily range): BP systolic 150–190; BP diastolic 67–109; PULSE 53–63; RESP 17–55; O2SAT 94–97
--- NOTE | 2025-06-05 01:13 | EKG_ITS ---
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
[2025-06-05 02:15] LABS: Troponin I < 0.012 ng/mL (0.01-0.034)
[2025-06-05] MEDS: KETOROLAC 30 MG/ML VIAL 15 MG IV (05:04)
== END 2025-06-05 05:15 | disposition home or self-care (01) ==
PROVIDERS: Emergency Provider Emergency Medicine; PCP Family Medicine
DX: R07.89 Other chest pain (principal); E11.9 Type 2 diabetes mellitus without complications; M25.512 Pain in left shoulder; R06.00 Dyspnea, unspecified; I10 Essential (primary) hypertension
CPT/HCPCS: 36415; 71045; 73721; 80053; 82550; 83690; 83735; 83880; 84484; 85025; 85610; 85730; 93005; 96374; 99284; J1885